=== PATIENT | male | born 1980 | race Caucasian/White ===

== ENCOUNTER 2018-03-05 13:59 | Emergency (ER) | payer OTHER, SELFPAY ==
[2018-03-05 14:03] VITALS: BP 161/106; PULSE 98; RESP 20; TEMP 36.4; O2SAT 96
[2018-03-05] MEDS: 0.9% Normal Saline 1,000 ML 999 ML IV ×2 (14:39)
[2018-03-05] MEDS: proMETHazine 25 MG/ML Syringe 6.25 MG IV (14:39)
[2018-03-05] MEDS: Ketorolac 30 MG/ML Syringe IV (15:23)
[2018-03-05] MEDS: Ondansetron 4 MG/2 ML Vial IV (15:28)
--- NOTE | 2018-03-05 15:35 | ED.VISSUMM ---
- ER Visit Summary Date of Service: 03/05/18 Chief Complaint: Nausea and vomiting History of Present Illness: The patient is a 37 M with nausea and vomiting that started today around 11 AM. He threw up 5 times and is now having dry heaves. He started to develop abdominal pain, back pain, myalgias, and headache. No weakness or numbness. No visual changes. No facial droop. No speech changes. No history of trauma. No blood thinner use. No fevers. Physical Examination: Afebrile and vital signs unremarkable. Head and neck atraumatic. Unremarkable. Good range of motion of his neck. Heart regular. Lungs clear. Abdomen soft and nontender. Normal bowel sounds. Skin appears normal. Cranial nerves grossly intact. Normal strength and sensation. Test Results: None performed Emergency Department Course and Treatment: Patient treated with fluids and Phenergan. He had some improvement but continued to complain of a headache. He was treated with Toradol and then Zofran. On further reevaluation, he is feeling better. I believe he is appropriate for discharge pending reevaluation after Toradol and Zofran. There is no indication for imaging or other diagnostic testing. Oncoming doctor will recheck. If he is doing better, he will be discharged with a course of Zofran. Treatment Plan: As above Disposition: Discharge pending reevaluation Impression: 1. Nausea and vomiting This note was generated with videoNEXT dictation software. It may contain incorrect words, spelling, and punctuation that were not noted in review of the chart prior to signing ED Disposition - Plan for ED Patient: Chief Complaint: Nausea/Vomiting/Diarrhea Referrals: Jean-Pierre Reyes DO [Primary Care Provider] -
--- NOTE | 2018-03-05 15:37 | ED.DEP ---
ED Disposition - Plan for ED Patient: Chief Complaint: Nausea/Vomiting/Diarrhea Instructions: ED Diet Vomiting Diarrhea Prescriptions: Ondansetron [Zofran Odt] 4 mg PO Q8H PRN PRN #10 tab PRN Reason: Nausea Referrals: Jean-Pierre Reyes DO [Primary Care Provider] -
--- OUTSIDE RECORDS SUMMARY | 2018-05-10 05:19 | XMS RPT_ITS ---
:1980 Author Organization [employer] Address [address] [place] [address] Phone Care Team Providers Name Role Phone Jeremy Lester Reason for Visit Reason For Visit Description Start Date Postop - subsequent visit Preliminary reason for visit data, not yet signed by the author as of right hip post Right hip scope with labral repair subchondroplasty microfracture chondroplasty acetabuloplasty femoroplasty synovectomy capsular repair. on 05/04/2017 Preliminary reason for visit data, not yet signed by the author as of Chief Complaint Chief Complaint Description Start Date right hip post Right hip scope with labral repair subchondroplasty microfracture chondroplasty acetabuloplasty femoroplasty synovectomy capsular repair. on 05/04/2017 Preliminary chief complaint data, not yet signed by the author as of Instructions Instruction Description Start Date Please follow-up with Primary Care Physician or Plaster Applicator for treatment or adjustment of medication regarding elevated blood pressure.Patient advised to follow-up with Primary Care Physician for BMI management. Plan of Care Type Date Detail Appointment 08:30 AM Warren Navarrete PT, [address], [place], [address], Appointment 09:20 AM Jeremy REYES, [address], [address], [place], [address], Appointment 09:00 AM Cari Gardiner PT, [address], [place], [address], Appointment 09:15 AM Nelly Surnear PT, [address], [place], [address], Appointment 10:00 AM Nelly Surnear PT, [address], [place], [address], Appointment 09:00 AM Cari Gardiner PT, [address], [place], [address], Appointment 10:00 AM Nelly Surnear PT, [address], [place], [address], Appointment 09:00 AM Cari Gardiner PT, [address], [place], [address], Appointment 10:00 AM Nelly Surnear PT, [address], [place], [address], Appointment 09:00 AM Cari Gardiner PT, [address], [place], [address], Patient education \cps-sql1\CPS_PtEducation\ht n.pdf Medications Medication Instructions Start Stop Generic Name [facility] Provider Date Date PERCOCET 5-325 Take 1 - 2 OXYCODONE-AC 90402532626 Champ R MG TABS tablets by mouth 3 ETAMINOPHEN Gabriela ZUÑIGA every 6 hours as needed for pain NAPROSYN 500 Take 1 tablet by NAPROXEN [id number] Jeremy A MG TABS mouth once a day 4 [facility] Conditions or Problems Problem Name Problem Onset Status Entry Provider Comment Standard Annotate Code Date Date Description Other M24.151 Active Jeremy A Other Labral articular (ICD-10-C / [facility] articular Tear cartilage M) cartilage disorders disorders, right hip right hip Other M25.851 Active Jeremy A Other COLT specified (ICD-10-C /30 /30 Prem PAC specified joint M) joint disorders disorders, right hip right hip Allergies, Adverse Reactions, Alerts Observed no known allergies at Social History No information available. Vital Signs Date Name Value Unit Description BMI (Body Mass 29.26 kg/m2 Body Mass Index Index) [Ratio] Preliminary vital sign data, not yet signed by the author as of BP Diastolic 109 mm[Hg] blood pressure, diastolic Preliminary vital sign data, not yet signed by the author as of BP Diastolic 102 mm[Hg] blood pressure, diastolic, second observation Preliminary vital sign data, not yet signed by the author as of BP Systolic 149 mm[Hg] blood pressure, systolic Preliminary vital sign data, not yet signed by the author as of BP Systolic 146 mm[Hg] blood pressure, systolic, second observation Preliminary vital sign data, not yet signed by the author as of Heart Rate 57 /min pulse rate E&M Preliminary vital sign data, not yet signed by the author as of Height 73 [in_us] height E&M Preliminary vital sign data, not yet signed by the author as of Height 185 cm height in centimeters E&M Preliminary vital sign data, not yet signed by the author as of Weight Measured 221 [lb_av] weight E&M Preliminary vital sign data, not yet signed by the author as of Weight Measured 100 kg weight in kilograms E&M Preliminary vital sign data, not yet signed by the author as of Results Date Name Value Unit Range Flag Description Office Visit: Postop - subsequent visit, Rm: 2 MEDS REVIEW Done Documentation of current medications (procedure) Preliminary observation data, not yet signed by the author as of Preliminary observation data, not yet signed by the author as of Clinical Summary: [facility] account number Clinical Summary: HMSPatientID PTOPACCTNUMB [id number] G[facility] Physical Therapy Outpatient Account Number Procedures Code Procedure Name Date Entry Date G8730 Pain assessment documented as positive - follow-up documented G8427 Current medications documented 1036F Tobacco screening was negative - non user G8417 BMI documented as above normal parameters - follow-up documented G8950 Blood pressure outside of normal parameters - follow-up documented [id number] Patient Encounter Medications Administered No information available. Immunizations No information available. Advance Directives There may be information available, but it has not been provided by the sender. Assessments There may be information available, but it has not been provided by the sender. Review of Systems There may be information available, but it has not been provided by the sender. Family History There may be information available, but it has not been provided by the sender. History of Past Illness There may be information available, but it has not been provided by the sender. History of Present Illness There may be information available, but it has not been provided by the sender.
--- OUTSIDE RECORDS SUMMARY | 2018-05-10 05:19 | XMS RPT_ITS ---
:1980 Author Organization [facility] Care Team Providers Name Role Phone ARON CONTRERAS Attending Unavailable Jean-Pierre Reyes Referring Unavailable Jean-Pierre Reyes Primary Care Unavailable Jean-Pierre Reyes Primary Care Unavailable Frank Fritz Attending Unavailable PROBLEMS PROBLEMS DATE TYPE CONDITION / ATTENDING STATUS SOURCE CODE 03/31/2017 Admitting Other articular Tawanna CONTRERAS [facility] Diagnosis cartilage ARON GREER System disorders, Repository right hip / M24.151(ICD-10) PROCEDURES PROCEDURES No Procedure Records FoundRESULTS RESULTS EMERGENCY DEPARTMENT Observed: 03/05/2018 Status: F Source: [place] SUMMARY 3:45 PM [facility] RE[facility]IT[facility] Medical Records Department [address] [place] [address] Emergency Department Summary 03/05/18 1535 MR#: [id number] Acct: [id number] Name: JEYSON SANCHEZ Rep #: [id number] : 1980 37 From: Frank Fritz MD PCP: Jean-Pierre Reyes DO Status: REG ER - ER Visit Summary Date of Service: 03/05/18 Chief Complaint: Nausea and vomiting History of Present Illness: The patient is a 37 M with nausea and vomiting that started today around 11 AM. He threw up 5 times and is now having dry heaves. He started to develop abdominal pain, back pain, myalgias, and headache. No weakness or numbness. No visual changes. No facial droop. No speech changes. No history of trauma. No blood thinner use. No fevers. Physical Examination: Afebrile and vital signs unremarkable. Head and neck atraumatic. Unremarkable. Good range of motion of his neck. Heart regular. Lungs clear. Abdomen soft and nontender. Normal bowel sounds. Skin appears normal. Cranial nerves grossly intact. Normal strength and sensation. Test Results: None performed Emergency Department Course and Treatment: Patient treated with fluids and Phenergan. He had some improvement but continued to complain of a headache. He was treated with Toradol and then Zofran. On further reevaluation, he is feeling better. I believe he is appropriate for discharge pending reevaluation after Toradol and Zofran. There is no indication for imaging or other diagnostic testing. Oncoming doctor will recheck. If he is doing better, he will be discharged with a course of Zofran. Treatment Plan: As above Disposition: Discharge pending reevaluation Impression: 1. Nausea and vomiting This note was generated with Stocard dictation software. It may contain incorrect words, spelling, and punctuation that were not noted in review of the chart prior to signing ED Disposition - Plan for ED Patient: Chief Complaint: Nausea/Vomiting/Diarrhea Referrals: Jean-Pierre Reyes, DO [Primary Care Provider] - What to do if you have Problems For any increased pain, shortness of breath, bleeding, nausea or vomiting, chest pain, or any unexpected problems, contact your Primary Care Provider. Call [facility] ([phone]) or report to the closest Emergency Room. Call 911 if necessary. 03/05/18 1546 <Electronically signed by Frank Fritz MD> Date Frank Fritz MD Cosigner Signature (If Indicated): Date CC: Jean-Pierre Reyes DO DISCHARGE INSTRUCTION Observed: 03/05/2018 Status: F Source: ANU 3:45 PM [facility] Medical Records Department [address] [place] [address] Discharge Instruction 03/05/18 1537 MR#: [id number] Acct: [id number] Name: JEYSON SANCHEZ Rep #: [id number] : 1980 37 From: Frank Fritz MD PCP: Jean-Pierre Reyes DO Status: REG ER ED Disposition - Plan for ED Patient: Chief Complaint: Nausea/Vomiting/Diarrhea Instructions: ED Diet Vomiting Diarrhea Prescriptions: Ondansetron [Zofran Odt] 4 mg PO Q8H PRN PRN #10 tab PRN Reason: Nausea Referrals: Jean-Pierre Reyes DO [Primary Care Provider] - What to do if you have Problems For any increased pain, shortness of breath, bleeding, nausea or vomiting, chest pain, or any unexpected problems, contact your Primary Care Provider. Call [facility] ([phone]) or report to the closest Emergency Room. Call 911 if necessary. 03/05/18 1545 <Electronically signed by Frank Fritz MD> Date Frank Fritz MD Cosigner Signature (If Indicated): Date CC: Jean-Pierre Reyes DO MRI LOW EXT JOINT W/ Observed: 03/31/2017 Status: F Source: [place] CONTRAST RIGHT 12:25 PM SYSTEM REPOSITORY Patient Name: JEYSON SANCHEZ MRI Exam Date/Time 03/31/2017 10:55:54 EST Exam MRI Low Ext Joint w/ Contrast Right Ordering Physician MD DIANE, ARON GREER Accession Number [id number] CPT4 Codes 25374 () Reason For Exam Pain Report Examination: MRI arthrogram right hip Clinical Indication: Hip pain concern for labral tear Comparison: None Findings: Multiplanar multisequence high field strength MRI images were obtained through the right hip after prior intra-articular contrast. Small iahdt-fn-ykwg axial, coronal, and sagittal along with high-resolution oblique coronal images were obtained for more sensitive and specific evaluation of the acetabular labrum. Patient describes post anesthesia pain relief right hip. There is a small cam seen along the femoral head neck junction slightly more pronounced superiorly. Right hip alpha angle measures 46 degrees. Lateral center edge angle measures 29 degrees. Acetabulum demonstrates neutral version. There is a sizable tear extending through the mid and peripheral anterior and into the anterior superior acetabular labrum extending to the 11:30 clock position. Tear measures 5 cm anterior to posterior with longitudinal articular sided component. The anterior labrum is slightly hypoplastic. There is partial detachment at the anterior superior junction. There is vsub-db-csubolay diffuse articular cartilage thinning. There is a focal full-thickness cartilage defect anterior acetabulum with developing subchondral cyst series 6 image seven. Cyst measures 0.8 cm. Cartilage defect measures up to 4 mm. There is some marginal chondromalacia. Ligamentum teres is intact. Iliopsoas tendon and bursa within normal limits. Adductor compartment musculature normal. There is trace gluteal tendinopathy without tear. No evidence of posterior hip impingement, normal ischiofemoral interval. Common hamstrings tendon origin is normal. Impression: 1. 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 2. Moderate articular cartilage thinning with full-thickness defect anterior superiorly, focal anterior acetabular subchondral cystic change and chondromalacia. 3. Small cam seen along the femoral head neck junction slightly more pronounced superiorly. Report Dictated on Final Dictated: 03/31/2017 12:25 pm Dictating Physician: MD GONZALES ANTHONY J Signed Date and Time: 03/31/2017 12:32 pm Signed by: MD GONZALES ANTHONY J Transcribed Date and Time: 03/31/2017 12:25 RF ARTHROGRAM ASPIR Observed: 03/31/2017 Status: F Source: [place] [facility] JT RIGHT 10:22 AM SYSTEM REPOSITORY Patient Name: JEYSON SANCHEZ Fluoroscopy Exam Date/Time 03/31/2017 10:01:39 EST Exam RF Arthrogram Aspir Inj Chandler Jt Right Ordering Physician SADIQ KOO RUSSELL Accession Number [id number] CTP4 Codes 86145 (), 63529 (RF FLUORO GUIDANCE NEEDLE PLACEMENT) Reason For Exam articular cartilage disorder right hip Report Examination: Fluoroscopic guided right hip arthrogram and diagnostic gadolinium injection Clinical Indication: Right hip pain, articular cartilage disorder Comparison: None Findings: Informed written consent was obtained from the patient after the risks, benefits, and alternatives to arthrography and therapeutic injection were adequately explained and all questions were answered. The right hip was prepared and draped in usual sterile fashion utilizing Betadine antisepsis. 1.5 percent preservative-free Carbocaine was used for local anesthesia. A 22-gauge spinal needle was then introduced into the right hip joint space utilizing fluoroscopy. Patient was then given injection of 16 mL of a mixture containing saline, 6 mL Isovue-300, 5 mL of Carbocaine and 1 to 200 dilute Multihance gadolinium contrast. Patient had no immediate postprocedural complications. Patient described postprocedural pain relief. Total fluoroscopic time 0.3 minutes. One stored fluoroscopic image. No additional exposure imaging. Impression: Status post right hip arthrogram and intra-articular gadolinium injection. Report Dictated on Final Dictated: 03/31/2017 10:22 am Dictating Physician: MD GONZALES ANTHONY J Signed Date and Time: 03/31/2017 10:23 am Signed by: MD GONZALES ANTHONY J Transcribed Date and Time: 03/31/2017 10:22 ALLERGIES ALLERGIES DATE TYPE / CODE NAME / CODE REACTION SEVERITY SOURCE 03/05/2018 Drug No Known Unknown [facility] Allergy/4160 Allergies/F00 [facility] 66404(SNOMED [id number](RXNOR Repository CT) M) ENCOUNTERS ENCOUNTERS ADMIT/DISCHARGE ACCOUNT NUMBER ADMITTING ENCOUNTER LOCATION SOURCE CLASS 03/05/2018/03/05/19 [id number] [place] [facility] ding:ED Repository 03/31/2017 [id number] Ambulatory [facility] Repository PAYERS PAYERS ENCOUNTER GUARANTOR PAYER SUBSCRIBER SOURCE 03/05/2018 JEYSON Tucker Primary JEYSON Tucker [place] [id number] Insurance:AETNADanniy CARLYB: [facility] Number: [id number] [address] [id number] Repository [address]Uql: ([phone]) Date:[id number] [phone] () [id number] [address]VZ: 03/05/2018 Secondary NOT GIVENUNK Anu Insurance:SELF PAY [facility] Number: Effective Repository Date:2018-03-05 03/31/2017 Jeyson Tucker Primary Jeyson [facility] RayobeyDOB: Insurance:Alie DuboseB: System [id number] N Number: Effective [id number] Repository [facility] Date: [place], [place] [address]Luh: ()
--- OUTSIDE RECORDS SUMMARY | 2018-05-10 05:19 | XMS RPT_ITS ---
:1980 Author Organization [employer] Address [address] [place] [address] Phone Care Team Providers Name Role Phone Jeremy Lester Unavailable Reason for Visit Reason For Visit Description [...] Please follow-up with Primary Care Physician or Residential Door Installer for treatment or adjustment of medication regarding elevated blood pressure.Patient advised to follow-up with Primary Care Physician for BMI management. Plan of Care Type Date Detail Appointment 08:20 AM Jeremy REYES, [address], [address], [place], [address], Appointment 08:00 AM Jeremy REYES, [address], [place], [address], Patient education \cps-sql1\CPS_PtEducation\h tn.pdf Medications Medication Instructions Start Stop Generic Name [facility] Provider Date Date PERCOCET 5-325 Take 1 - 2 OXYCODONE-AC 11010661264 Champ R MG TABS tablets by mouth 3 ETAMINJEFFERY Ochoa MD every 6 hours as needed for pain NAPROSYN 500 Take 1 tablet by NAPROXEN [id number] Jeremy A MG TABS mouth once a day 4 [facility] Conditions or Problems Problem Name Problem Onset Status Entry Provider Comment Standard Annotate Code Date Date Description Other M24.151 Active Jeremy A Other Labral articular (ICD-10-C [facility] articular Tear cartilage M) cartilage disorders disorders, right hip right hip Other M25.851 Active Jeremy A Other COLT specified (ICD-10-C [facility] specified joint M) joint disorders disorders, right hip right hip Allergies, Adverse Reactions, Alerts Observed no known allergies at Social History No information available. Vital Signs Date Name Value Unit Description BMI (Body Mass 29.26 kg/m2 Body Mass Index Index) [Ratio] Preliminary vital sign data, not yet signed by the author as of BP Diastolic 102 mm[Hg] blood pressure, diastolic Preliminary vital sign data, not yet signed by the author as of BP Diastolic 97 mm[Hg] blood pressure, diastolic, second observation Preliminary vital sign data, not yet signed by the author as of BP Systolic 149 mm[Hg] blood pressure, systolic Preliminary vital sign data, not yet signed by the author as of BP Systolic 135 mm[Hg] blood pressure, systolic, second observation Preliminary vital sign data, not yet signed by the author as of Heart Rate 63 /min pulse rate E&M Preliminary vital sign [...] Office Visit: Postop - subsequent visit, Rm: 1 MEDS REVIEW Done Documentation of current medications (procedure) Preliminary observation data, not yet signed by the author as of Preliminary observation data, not yet signed by the author as of Clinical Summary: [facility] account number Procedures Code Procedure Name Date Entry Date G8731 Pain assessment documented as negative - follow-up not required G8427 Current medications documented 1036F Tobacco screening was negative - non user G8417 BMI documented as above normal parameters - follow-up documented G8950 Blood pressure outside of normal parameters - follow-up documented [facility]-[id number] Patient Encounter Medications Administered No information available. [...]
--- OUTSIDE RECORDS SUMMARY | 2018-05-10 05:19 | XMS RPT_ITS ---
:1980 Author Organization [employer] Address [address] [place], [place] [address], [place] [address] Phone Care Team Providers Name Role Phone Gabriela ZUÑIGA, Champ Vivar Unavailable Reason for Visit Reason For Visit Description Start Date Postop - 1st visit Preliminary reason for visit data, not [...] as of Instructions Instruction Description Start Date Patient advised to follow-up with Primary Care Physician for BMI management. Plan of Care Type Date Detail Appointment 12:00 PM Champ Ochoa MD, [address], [address], [place], [address], Appointment 01:30 PM Mimi Henry PT, [address], [place], [address], Appointment 09:20 AM Jeremy REYES, [address], [address], [place], [address], Medications Medication Instructions Start Stop Generic Name NDC Provider Date Date PERCOCET 5-325 Take 1 - 2 OXYCODONE-JENNIFER 15170726077 Champ R MG TABS tablets by mouth 3 TAMINOPHEN Gabriela ZUÑIGA every 6 hours as needed for pain NAPROSYN 500 Take 1 tablet by NAPROXEN [id number] Jeremy A MG TABS mouth once a day 4 Prem [facility] GABAPENTIN 300 take 1 capsule GABAPENTIN [id number] Cece Doug MG CAPS four times daily 6 DOCUMENT CONTROL COORDINATOR Conditions or Problems Problem Name Problem Onset Status Entry Provider Comment Standard Annotate Code Date Date Description Other M24.151 Active Jeremy A Other Labral articular (ICD-10-C / [facility] articular Tear cartilage M) cartilage disorders disorders, right hip right hip Other M25.851 Active Jeremy A Other COLT specified (ICD-10-C / [facility] specified joint M) joint disorders disorders, right hip right hip Allergies, Adverse Reactions, Alerts Observed no known allergies at Social History No information available. Vital Signs Date Name Value Unit Description BMI (Body Mass 29.26 kg/m2 Body Mass Index Index) [Ratio] Preliminary vital sign data, not yet signed by the author as of BP Diastolic 82 mm[Hg] blood pressure, diastolic Preliminary vital sign data, not yet signed by the author as of BP Systolic 137 mm[Hg] blood pressure, systolic Preliminary vital sign data, not yet signed by the author as of Heart Rate 83 /min pulse rate E&M Preliminary vital sign [...] Range Flag Description Office Visit: Postop - 1st visit, Rm: 6 MEDS REVIEW Done Documentation of current medications (procedure) Preliminary observation data, not yet signed by the author as of Preliminary observation data, not yet signed by the author as of Clinical Summary: [facility]Patient[facility] account number Procedures Code Procedure Name Date Entry Date CPT-17517 Physical Therapy G8731 Pain assessment documented as negative - follow-up not required G8427 Current medications documented 1036F Tobacco screening was negative - non user G8417 BMI documented as above normal parameters - follow-up documented G8783 Blood pressure within normal parameters - no follow-up required [facility]-[id number] Patient Encounter Medications Administered No information available. [...]
== END 2018-03-05 15:57 | disposition home or self-care (01) ==
LOC: ED 15:12
PROVIDERS: Emergency Provider Emergency Medicine; Family Provider Family Medicine; PCP Family Medicine
DX: R11.2 Nausea with vomiting, unspecified (principal); R19.7 Diarrhea, unspecified; M54.9 Dorsalgia, unspecified; M79.10 Myalgia, unspecified site; R51 Headache; Z79.899 Other long term (current) drug therapy; Z86.711 Personal history of pulmonary embolism; Z87.09 Personal history of other diseases of the respiratory system
CPT/HCPCS: 96361; 96374; 96375; 99282; J7030; A4216; J2405

== ENCOUNTER 2019-02-20 08:42 | Emergency (ER) | payer OTHER, SELFPAY ==
[2019-02-20 08:44] VITALS: BP 148/94; PULSE 98; RESP 22; TEMP 37.4; O2SAT 96; BMI 28.0
--- NOTE | 2019-02-20 09:43 | ED.DCSUM_ITS ---
- ER Visit Summary Date of Service: 02/20/19 Chief Complaint: Nausea and vomiting History of Present Illness: The patient is a 38 M who presents with nausea and vomiting. He states started earlier this morning. He has vomited multiple times at home. He does have some mild abdominal cramping after the vomiting. Nothing makes his symptoms better or worse. He denies diarrhea. No urinary symptoms. He took nothing for this at home. He denies any history of abdominal surgeries. He denies any fevers or sick contacts. Physical Examination: Vital signs reviewed. HEENT exam unremarkable. Heart is regular rate and rhythm without murmurs. Lungs are clear to auscultation. Abdomen is soft with very mild diffuse tenderness. There is no guarding or rebound tenderness. Extremities reveal no edema. Skin exam normal. Neurologic exam normal. Test Results: White blood cell count 11.1. Electrolytes and liver enzymes normal Emergency Department Course and Treatment: Patient was given IV fluids and Zofran. He states that this helped him with his nausea. He still having some abdominal cramping so I will give him a dose of Bentyl. I feel that this is likely a gastroenteritis. I do not feel he needs any imaging studies at this time. I will treat him with Bentyl and Phenergan at home. He will follow-up with his doctor Treatment Plan: [] Disposition: Discharge Impression: Gastroenteritis This note was generated with [employer] dictation software. It may contain incorrect words, spelling, and punctuation that were not noted in review of the chart prior to signing ED Disposition - Plan for ED Patient: Referrals: Care Physician,No Primary [Primary Care Provider] -
[2019-02-20] MEDS: 0.9% Normal Saline 1,000 ML 1000 ML IV (09:50)
[2019-02-20] MEDS: Ondansetron 4 MG/2 ML Vial IV (09:50)
[2019-02-20 10:06] LABS: Absolute Lymphocyte Count 0.87 X10^3/uL (0.83-4.51); Absolute Neutrophil Count 9.3 X10^3/uL (2.0-7.7); Basophil# 0.06 X10^3/uL; Basophil% 0.5 % (0-1); Eosinophil# 0.07 X10^3/uL; Eosinophils% 0.6 % (0-5); Hematocrit 43.2 % (40-54); Lymphocyte # 0.87 X10^3/ul (4.0); Lymphocyte % 7.8 % (19-41); Mean Corp Hgb Conc 34.7 g/dL (32-36); Mean Corpuscular Hgb 28.7 pg (27.0-32.0); Mean Corpuscular Volume 82.8 fL (80-94); Monocyte# 0.82 X10^3/uL; Monocyte% 7.4 % (0-10); NRBC Flagged by Analyzer 0 % (0-5); Neutrophil # 9.25 X10^3/uL (2.7-7.7); Neutrophil % 83.4 % (47-70); Platelet Count 189 K/mm3 (150-450); RBC Distribution Width CV 13.2 % (11.6-14.6); RBC Distribution Width SD 39.4 fl (35.1-43.9); Red Blood Count 5.22 M/mm3 (4.6-6.2); White Blood Count 11.1 K/mm3 (4.4-11.0)
[2019-02-20 10:29] LABS: ALB/GLOB Ratio 1.1 RATIO (0.9-2.4); AST(SGOT) 25 U/L (15-37); Alanine Aminotransfer ALT/SGPT 48 U/L (16-61); Albumin, Serum 4.1 g/dL (3.2-5.0); Alkaline Phosphatase 106 U/L (45-117); Anion Gap 7 (5-15); BUN 10 mg/dL (7-18); BUN/Creat Ratio 9.4 RATIO (10-20); Calcium,Total 9.3 mg/dL (8.5-10.1); Chloride 107 mmol/L (98-107); Creatinine, Serum 1.06 mg/dL (0.70-1.30); EST Glomerular Filtration Rate 83 mL/min (>60); Est Glom Filt Rate - Afr Amer 101 mL/min (>60); Estimated Creatinine Clearance 117.14 ml/min; Globulin 3.7 g/dL (2.2-4.2); Glucose 106 mg/dL (74-106); Lipase 134 U/L (73-393); Potassium 3.7 mmol/L (3.5-5.1); Protein, Total 7.8 g/dL (6.4-8.2); Sodium Level 139 mmol/L (136-145)
--- NOTE | 2019-02-20 10:35 | ED.DEP ---
ED Disposition - Plan for ED Patient: Disposition: Home or Assisted Living Instructions: DIET, Vomiting or Diarrhea [6yr-Adult] Prescriptions: Dicyclomine HCl [Bentyl] 20 mg PO TIDAC #20 cap Prescription Printed proMETHazine tablet [Phenergan] 25 mg PO Q6H PRN PRN #10 tab PRN Reason: Nausea Prescription Printed Referrals: Care Physician,No Primary [Primary Care Provider] -
[2019-02-20] MEDS: Dicyclomine 20 MG/2 ML Vial IM (10:46)
[2019-02-20 10:59] VITALS: BP 114/76; PULSE 72; RESP 15; O2SAT 98
== END 2019-02-20 11:27 | disposition home or self-care (01) ==
PROVIDERS: Emergency Provider Emergency Medicine
DX: K52.9 Noninfective gastroenteritis and colitis, unspecified (principal); Z79.899 Other long term (current) drug therapy
CPT/HCPCS: 80053; 83690; 85025; 96361; 96372; 96374; 99283; J7030; J2405

== ENCOUNTER 2020-01-25 18:34 | Observation (INO) | payer OTHER, SELFPAY ==
[2020-01-25] VITALS (7 sets, daily range): BP systolic 127–158; BP diastolic 95–109; PULSE 80–102; RESP 15–25; TEMP 36.4; O2SAT 88–98; BMI 32.8
--- NOTE | 2020-01-25 19:11 | EKG12_ITS ---
Test Reason : SOB Blood Pressure : / mmHG Vent. Rate : 101 BPM Atrial Rate : 101 BPM P-R Int : 150 ms QRS Dur : 086 ms QT Int : 324 ms P-R-T Axes : 025 -05 018 degrees QTc Int : 420 ms Sinus tachycardia Possible Left atrial enlargement Borderline ECG Confirmed by ALICE ZUÑIGA, RAY ([id number]), design editor LIZ CANTU ([id number]) on 01/27/2020 2:06:52 PM Referred By: Pranav Nuñez Confirmed By:RAY JENKINS MD
--- NOTE | 2020-01-25 19:17 | ED.DCSUM_ITS ---
History of Present Illness Chief Complaint: Shortness of Breath Informant: Patient Narrative: 39-year-old male presenting for evaluation of chest pain and shortness of breath. Patient apparently had taken Ambien prior to going to bed, and after this his sister called. He thought he was talking a little weird so she went to check on him. When she arrived he was still acting a little abnormal so she called EMS. On EMS arrival patient started to have a panic attack which she has had in the past. He states he feels a little bit better now but he is never had chest pain like this with his panic attack. He describes it as pressure on the chest wall. He states he has not had a cough, cold, fever, chills. He denies cardiac history. Past Medical History - Allergies and Home Meds Allergies/Adverse Reactions: Allergies No Known Allergies Allergy (Verified 01/25/20 18:45) Prior records reviewed: Yes Past Medical History: - - Pulmonary embolism, anxiety Surgical History: noncontributory Lives: Alone Smoking Status: Never smoker - Family History Maternal Family History: Reports: No pertinent history - No family history of first- degree hypercoagulable disorder Paternal Family History: Reports: - - Denies any medical history. Review of Systems General: Denies: Chills, Fever, Sweats Eyes: Denies: Visual changes - bilaterally, Diplopia ENT: Denies: Rhinorrhea, Sore throat Cardiovascular: Reports: Chest pain, Heart racing Respiratory: Reports: Dyspnea. Denies: Cough, Sputum Gastrointestinal: Denies: Abdominal pain, Nausea, Vomiting, Diarrhea, Melena, Hematochezia Genitourinary: Denies: Dysuria, Hematuria, Frequency Musculoskeletal: Denies: Back pain, Extremity Pain Skin: Denies: Rash, Wounds Neurological: Denies: Weakness, Numbness Psych: Reports: Anxiety. Denies: Suicidal thoughts, Suicidal ideations Physical Exam Vital Signs/Narrative: Vital Signs Temp Pulse Resp BP Pulse Ox 01/25/20 18:50 86 19 H 149/108 H 97 01/25/20 18:36 97.6 F L 102 H 15 158/108 H 98 Inital Vital Signs reviewed: Yes General: Well nourished, No Acute Distress Head: Normocephalic, Atraumatic Eyes: Perrl, EOMI ENT: Moist mucous membranes, No rhinorrhea Cardiovascular: Regular rhythm, Tachycardia Respiratory: No distress, CTA bilaterally. Negative for: Chest tenderness Abdomen: Soft, Nontender, Nondistended Extremities: Negative for: Nontender, No edema Skin: Negative for: Normal color, No rash Neurological: Alert, Oriented x3, Cranial nerves II-XII grossly intact Psychological: Normal Mood, - - Anxious Diagnostic/Tx/Re-eval Clinical Impression(s) from Imaging Studies Chest X-Ray 01/25/20 20:07 IMPRESSION: No acute cardiopulmonary process identified. Electronically Signed: Kenneth Verdin, at 20:26 EST Tel , Service support , Laboratory Data 01/25/20 01/25/20 01/25/20 19:30 19:30 19:30 WBC 6.6 RBC 5.55 Hgb 15.7 Hct 46.5 MCV 83.8 MCH 28.3 MCHC 33.8 RDW Std Deviation 38.5 RDW Coeff of Francoise 12.6 Plt Count 234 MPV 11.8 Immature Gran % (Auto) 0.300 Neut % (Auto) 84.7 H Lymph % (Auto) 11.8 L [place] % (Auto) 3.0 Eos % (Auto) 0.0 Baso % (Auto) 0.2 Absolute Neuts (auto) 5.6 Absolute Lymphs (auto) 0.78 L Nucleated RBC % 0 D-Dimer Quant (PE/DVT) < 0.27 L Sodium 140 Potassium 4.1 Chloride 106 Carbon Dioxide 28.0 Anion Gap 6 BUN 11 Creatinine 0.98 Estim Creat Clear Calc 105.53 Est GFR (MDRD) Af Amer 110 Est GFR (MDRD) Non-Af 91 BUN/Creatinine Ratio 11.2 Glucose 121 H Calcium 9.8 Troponin I < 0.015 COVID-19 (LEX) 01/25/20 22:20 WBC RBC Hgb Hct MCV MCH MCHC RDW Std Deviation RDW Coeff of Francoise Plt Count MPV Immature Gran % (Auto) Neut % (Auto) Lymph % (Auto) [place] % (Auto) Eos % (Auto) Baso % (Auto) Absolute Neuts (auto) Absolute Lymphs (auto) Nucleated RBC % D-Dimer Quant (PE/DVT) Sodium Potassium Chloride Carbon Dioxide Anion Gap BUN Creatinine Estim Creat Clear Calc Est GFR (MDRD) Af Amer Est GFR (MDRD) Non-Af BUN/Creatinine Ratio Glucose Calcium Troponin I COVID-19 (LEX) Not Detected - Medical Decision Making 39-year-old male presenting with 2 days of symptoms of shortness of breath and chest pain. On arrival he was tachycardic and short of breath was able to be calmed down. His vitals did appear to be stabilized. EKG is sinus rhythm in 101 bpm without signs of ischemic change. Troponin is negative. D-dimer is negative. Patient is lymphopenic and leukopenic. He was monitored on pulse ox for over 10 minutes to be hypoxic. His lowest sat was 88%. He was placed on 2 L of oxygen and he appears to be stable with this. Patient was tested for Covid with rapid antigen and this was negative. He was then tested with a PCR which was negative. Given the patient's hypoxia he will be needed minute for observation. Impression: 1. Chest pain 2. Hypoxia 3. Shortness of breath ED Disposition - Plan for ED Patient: Disposition: Acute Care Hospital [facility]
[2020-01-25] MEDS: 0.9% Normal Saline 1,000 ML 1000 ML IV (19:31)
[2020-01-25] MEDS: Aspirin 81 MG TAB.CHEW 324 MG PO (19:31)
[2020-01-25 19:52] LABS: Absolute Lymphocyte Count 0.78 X10^3/uL (0.83-4.51); Absolute Neutrophil Count 5.6 X10^3/uL (2.0-7.7); Basophil# 0.01 X10^3/uL; Basophil% 0.2 % (0-1); Hematocrit 46.5 % (40-54); Hemoglobin 15.7 g/dL (13.0-16.5); Lymphocyte # 0.78 X10^3/ul (4.0); Lymphocyte % 11.8 % (19-41); Mean Corp Hgb Conc 33.8 g/dL (32-36); Mean Corpuscular Hgb 28.3 pg (27.0-32.0); Mean Corpuscular Volume 83.8 fL (80-94); Mean Platelet Vol. 11.8 fl (6.2-12.0); NRBC Flagged by Analyzer 0 % (0-5); Neutrophil # 5.59 X10^3/uL (2.7-7.7); Neutrophil % 84.7 % (47-70); Platelet Count 234 K/mm3 (150-450); RBC Distribution Width CV 12.6 % (11.6-14.6); RBC Distribution Width SD 38.5 fl (35.1-43.9); Red Blood Count 5.55 M/mm3 (4.6-6.2); White Blood Count 6.6 K/mm3 (4.4-11.0)
[2020-01-25 20:00] LABS: D-Dimer Quantitative (DVT/PE) < 0.27 FEU/ug/m (0.27-0.49)
--- NOTE | 2020-01-25 20:07 | RAD_ITS ---
STUDY: X-RAY CHEST REASON FOR EXAM: Male, 39 years old. PT HAD 3 STEROID SHOTS TODAY FOR HIS BACK. PT CALLED [facility] FEELING SOB AND VERY ANXIOUS. PT WAS HYPERVENTILATING. TECHNIQUE: Single frontal view of the chest. COMPARISON: 12/12/2016. FINDINGS: Cardiac silhouette unremarkable. Pulmonary vascularity unremarkable. Aorta unremarkable. No focal airspace opacities. No pleural effusions. Upper abdomen unremarkable. Osseous structures intact. No pneumothorax. RAD/Chest 1 View (Portable) IMPRESSION: No acute cardiopulmonary process identified. Electronically Signed: Kenneth Verdin, at 20:26 EST Tel , Service support ,
[2020-01-25 20:08] LABS: Anion Gap 6 (5-15); BUN 11 mg/dL (7-18); BUN/Creat Ratio 11.2 RATIO (10-20); Calcium,Total 9.8 mg/dL (8.5-10.1); Chloride 106 mmol/L (98-107); Creatinine, Serum 0.98 mg/dL (0.70-1.30); EST Glomerular Filtration Rate 91 mL/min (>60); Est Glom Filt Rate - Afr Amer 110 mL/min (>60); Estimated Creatinine Clearance 105.53 ml/min; Glucose 121 mg/dL (74-106); Potassium 4.1 mmol/L (3.5-5.1); Sodium Level 140 mmol/L (136-145)
[2020-01-25 23:26] LABS: Probe Check PASS; Specimen Processing Control PASS
[2020-01-26] VITALS (7 sets, daily range): BP systolic 137–158; BP diastolic 82–111; PULSE 56–75; RESP 15–18; TEMP 36.5–37; O2SAT 95–97; BMI 30.9
--- NOTE | 2020-01-26 00:18 | PCM.HP.STD ---
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 Reportedly patient took his night time Ambien for sleep and became confused thereafter. Patient's confusion was witnessed by his sister who is a refrigeration service technician. Subsequently, paramedics were called and patient was brought to the emergency department. Per ED doc, while patient was at the ED, patient's oxygen saturation at room air and for a period of about 10 minutes was around 88%. Patient denies sob prior to arrival but developed SOB at the ED. Patient reports a dry cough. He denies fever. His coronavirus antigen and PCR at the ED was negative. Past Medical History Medical History: Medical History (Last Updated 01/26/20 @ 04:[address] Pranav Nuñez MD) Chronic pain G89.29 Allergies No Known Allergies Allergy (Verified 01/25/20 18:45) Home Medications: Ambulatory Orders Medication Instructions Recorded Gabapentin [Neurontin] 600 mg PO BID 12/12/16 Tizanidine HCl [Zanaflex] 4 mg PO Q8H PRN PRN 01/25/20 Zolpidem Tartrate [Ambien] 10 mg PO QHS 01/25/20 traMADol [Ultram (G)] 50 mg PO Q6H PRN PRN 01/25/20 Surgical History: no surgical history Lives: Alone Smoking Status: Never smoker - *Family History Maternal History Items: - - His mother had a foot injury and had her leg amputated. Denies any other medical history otherwise. Paternal History Items: - - Denies any paternal medical history. Review of Systems Constitutional: Denies: Chills, Fever, Weight Change HEENT: Denies: Head Aches, Sinus Congestion, Sinus Drainage Cardiovascular: Denies: Chest Pain, Palpitations Respiratory: Reports: Cough, Shortness of Breath. Denies: Sputum production Gastrointestinal: Denies: Abdominal Pain, Nausea, Vomiting Genitourinary: Denies: Dysuria Musculoskeletal: Denies: Joint Pain, Joint Tenderness Skin: Denies: Rash, Wounds Neurological: Reports: Confusion. Denies: Focal weakness, Numbness, Tingling Psychiatric: Denies: Anxiety, Depression, Homicidal Ideations, Suicidal Ideations Hematologic/ Lymphatic: Denies: Easy Bruising, Easy Bleeding VTE Information - Inpt Only VTE Present on Admission: No VTE Mechan Device Prophylaxis: SCD's VTE Pharm Prophylaxis ordered?: No - Physical Exam Vitals/I&O's: Vital Signs Temp Pulse Resp BP Pulse Ox 97.6 F L 99 15 150/95 H 96 01/25/20 18:36 01/25/20 20:36 01/25/20 20:36 01/25/20 20:36 01/25/20 20:36 Oxygen Flow Rate (L/min) 2 Oxygen Delivery Method Nasal Cannula Weight: 103.9 kg Body Mass Index (BMI) 32.8 Intake and Output for Last 24 Hours 01/24/20 01/25/20 01/26/20 23:59 23:59 23:59 Intake Total 1000 / 1000 Balance 1000 / 1000 General: Alert, Oriented x3, Cooperative HEENT: Atraumatic, PERRLA, EOMI, Normocephalic Neck: Supple, No JVD, Negative Carotid Bruits Lungs: Clear to auscultation, Normal air movement Cardiovascular: Regular rate, Normal S1, Normal S2, No murmurs Abdomen: Bowel Sounds Present, Soft, Non Tender Extremities: No edema, Capillary Refill Less than 3 Seconds Skin: No rashes, No breakdown Musculoskeletal: No Tenderness to Palpation of Joints or Extremities Neurological: Cranial nerves II-XII grossly intact Psych/Mental Status: Normal Affect, Appropriate Microbiology Past 72 Hours 01/25/20 20:00 Mucosa - Nose SARS-CoV-2 Antigen (Rapid) - Final Laboratory Results 01/25/20 19:30: WBC 6.6, RBC 5.55, Hgb 15.7, Hct 46.5, MCV 83.8, MCH 28.3, MCHC 33.8, RDW Std Deviation 38.5, RDW Coeff of Francoise 12.6, Plt Count 234, MPV 11.8, Immature Gran % (Auto) 0.300, Neut % (Auto) 84.7 H, Lymph % (Auto) 11.8 L, [place] % (Auto) 3.0, Eos % (Auto) 0.0, Baso % (Auto) 0.2, Absolute Neuts (auto) 5.6, Absolute Lymphs (auto) 0.78 L, Nucleated RBC % 0 01/25/20 19:30: D-Dimer Quant (PE/DVT) < 0.27 L 01/25/20 19:30: Sodium 140, Potassium 4.1, Chloride 106, Carbon Dioxide 28.0, Anion Gap 6, BUN 11, Creatinine 0.98, Estim Creat Clear Calc 105.53, Est GFR (MDRD) Af Amer 110, Est GFR (MDRD) Non-Af 91, BUN/Creatinine Ratio 11.2, Glucose 121 H, Calcium 9.8, Troponin I < 0.015 01/25/20 22:20: COVID-19 (LEX) Not Detected Current Medications Acetaminophen (Acetaminophen 325 Mg Tablet) 650 mg PO Q6H PRN PRN PRN Reason: pain 1-10/Fever of >=100.4F Assessment/Plan Acute encephalopathy Etiology unclear. Check TSH and vitamin B-12. BMP is unremarkable. Check CMP. Review of ED triage notes: Patient had 3 steroid shots today for his back. Patient called squad feeling short of breath and very anxious. Patient was hyperventilating. History taken from patient's was not consistent with triage notes. From review of triage notes patient might have had steroid psychosis. Acute hypoxemic respiratory insufficiency. Hold all sedating medication. Oxygen per protocol. Nighttime oximetry ordered. Coronavirus antigen and PCR was negative. 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 Respiratory pathogen panel and influenza returned negative. Indeed his symptoms does not appear to be a viral syndrome. Deferential diagnoses includes panic attack. As per emergent department doctor's notes patient started to have a panic attack when paramedics arrived and he has had same in the past. Chronic pain Hold home gabapentin. Patient is on home Zanaflex which reportedly he does not take as he gets drowsy with it. Patient was requesting a pain med for his back. However with his acute encephalopathy on the same day of presentation patient was advised that all sedative medications will be held at this time. Tylenol as needed and K pad ordered. DVT prophylaxis Low risk Encouraged to ambulate. OBSV E&M: 04924 Initial observation care L2
[2020-01-26] MEDS: Acetaminophen 325 MG Tablet 650 MG PO (01:51)
[2020-01-26 05:51] LABS: Absolute Lymphocyte Count 1.84 X10^3/uL (0.83-4.51); Absolute Neutrophil Count 7.8 X10^3/uL (2.0-7.7); Basophil# 0.02 X10^3/uL; Basophil% 0.2 % (0-1); Eosinophil# 0.01 X10^3/uL; Eosinophils% 0.1 % (0-5); Hematocrit 41.3 % (40-54); Hemoglobin 13.9 g/dL (13.0-16.5); Lymphocyte # 1.84 X10^3/ul (4.0); Lymphocyte % 17.3 % (19-41); Mean Corp Hgb Conc 33.7 g/dL (32-36); Mean Corpuscular Hgb 28.5 pg (27.0-32.0); Mean Corpuscular Volume 84.6 fL (80-94); Mean Platelet Vol. 11.8 fl (6.2-12.0); Monocyte# 0.96 X10^3/uL; NRBC Flagged by Analyzer 0 % (0-5); Neutrophil # 7.78 X10^3/uL (2.7-7.7); Platelet Count 204 K/mm3 (150-450); RBC Distribution Width CV 12.8 % (11.6-14.6); RBC Distribution Width SD 39.6 fl (35.1-43.9); Red Blood Count 4.88 M/mm3 (4.6-6.2); White Blood Count 10.7 K/mm3 (4.4-11.0)
[2020-01-26 06:25] LABS: ALB/GLOB Ratio 1.1 RATIO (0.9-2.4); AST(SGOT) 11 U/L (15-37); Alanine Aminotransfer ALT/SGPT 18 U/L (16-61); Albumin, Serum 3.8 g/dL (3.2-5.0); Alkaline Phosphatase 89 U/L (45-117); Anion Gap 4 (5-15); BUN 10 mg/dL (7-18); BUN/Creat Ratio 13.1 RATIO (10-20); Chloride 107 mmol/L (98-107); Creatinine, Serum 0.76 mg/dL (0.70-1.30); EST Glomerular Filtration Rate 121 mL/min (>60); Est Glom Filt Rate - Afr Amer 147 mL/min (>60); Estimated Creatinine Clearance 136.07 ml/min; Globulin 3.4 g/dL (2.2-4.2); Glucose 109 mg/dL (74-106); Potassium 3.6 mmol/L (3.5-5.1); Protein, Total 7.2 g/dL (6.4-8.2); Sodium Level 138 mmol/L (136-145); Thyroid Stim Hormone (TSH) 0.35 uIU/mL (0.358-3.74)
--- NOTE | 2020-01-26 07:42 | NURSING ---
Pandemic Documentation beginning at 01/26/2020 0104
[2020-01-26 08:26] LABS: Vitamin B12 381 pg/mL (211-911)
--- NOTE | 2020-01-26 09:34 | DS.PCM_ITS ---
Discharge Date and Diagnosis Date of Admission: 01/26/20 Date of Discharge: 01/26/20 - Primary Discharge Diagnosis Acute Problems: Acute hypoxic respiratory insufficiency Toxic encephalopathy Hospital Course and Treatment Operations: None Summary of Care Provided: The patient is a 39 year old M presents with confusion. Yesterday, patient received a Depo shot of steroids. Patient took Ambien around 4 PM. He took that because he works nights. Which he states he does do that periodically. Was noted to be confused but pulse ox was around 88%. Today, the patient is feeling better and was up and ambulated and his pulse ox remained in the mid 90s. He has no shortness of breath and otherwise feels well. I feel that the confusion was likely toxic encephalopathy related with the steroid shots, w hether or not anything else was in the shot other than steroids I am not aware of, and the Ambien. I told patient to take the Ambien very sparingly and warned him of a hangover effect that can occur after nights or days sleep. [] - Physical Exam Vitals/I&O's: Vital Signs Temp Pulse Resp BP Pulse Ox 36.6 C 69 18 139/82 H 95 01/26/20 05:51 01/26/20 05:51 01/26/20 05:51 01/26/20 05:51 01/26/20 05:51 Oxygen Flow Rate (L/min) 2 Oxygen Delivery Method Nasal Cannula Weight: 98 kg Body Mass Index (BMI) 30.9 Intake and Output for Last 24 Hours 01/24/20 01/25/20 01/26/20 23:59 23:59 23:59 Intake Total 1000 / 1000 300 / 300 Balance 1000 / 1000 300 / 300 General: Alert, No apparent distress HEENT: Atraumatic, Normocephalic Oral: Moist Mucosa, No Gingival or Mucosal Lesions/ Ulcerations Psych/Mental Status: Normal Affect, Appropriate Microbiology Past 72 Hours 01/25/20 22:00 Mucosa - Nasopharyngeal Respiratory Panel (PCR) - Final 01/26/20 00:00 Mucosa - Nasopharyngeal Influenza Types A,B Direct FA (MAIRA) - Final 01/25/20 20:00 Mucosa - Nose SARS-CoV-2 Antigen (Rapid) - Final Laboratory Results 01/25/20 19:30: WBC 6.6, RBC 5.55, Hgb 15.7, Hct 46.5, MCV 83.8, MCH 28.3, MCHC 33.8, RDW Std Deviation 38.5, RDW Coeff of Francoise 12.6, Plt Count 234, MPV 11.8, Immature Gran % (Auto) 0.300, Neut % (Auto) 84.7 H, Lymph % (Auto) 11.8 L, [place] % (Auto) 3.0, Eos % (Auto) 0.0, Baso % (Auto) 0.2, Absolute Neuts (auto) 5.6, Absolute Lymphs (auto) 0.78 L, Nucleated RBC % 0 01/25/20 19:30: D-Dimer Quant (PE/DVT) < 0.27 L 01/25/20 19:30: Sodium 140, Potassium 4.1, Chloride 106, Carbon Dioxide 28.0, Anion Gap 6, BUN 11, Creatinine 0.98, Estim Creat Clear Calc 105.53, Est GFR (MDRD) Af Amer 110, Est GFR (MDRD) Non-Af 91, BUN/Creatinine Ratio 11.2, Glucose 121 H, Calcium 9.8, Troponin I < 0.015 01/25/20 22:20: COVID-19 (LEX) Not Detected 01/26/20 05:28: Sodium 138, Potassium 3.6, Chloride 107, Carbon Dioxide 27.0, Anion Gap 4 L, BUN 10, Creatinine 0.76, Estim Creat Clear Calc 136.07, Est GFR (MDRD) Af Amer 147, Est GFR (MDRD) Non-Af 121, BUN/Creatinine Ratio 13.1, Glucose 109 H, Calcium 9.0, Total Bilirubin 0.40, AST 11 L, ALT 18, Alkaline Phosphatase 89, Total Protein 7.2, Albumin 3.8, Globulin 3.4, Albumin/Globulin Ratio 1.1, TSH 0.35 L 01/26/20 05:28: Vitamin B12 381 01/26/20 05:28: WBC 10.7, RBC 4.88, Hgb 13.9, Hct 41.3, MCV 84.6, MCH 28.5, MCHC 33.7, RDW Std Deviation 39.6, RDW Coeff of Francoise 12.8, Plt Count 204, MPV 11.8, Immature Gran % (Auto) 0.400, Neut % (Auto) 73.0 H, Lymph % (Auto) 17.3 L, [place] % (Auto) 9.0, Eos % (Auto) 0.1, Baso % (Auto) 0.2, Absolute Neuts (auto) 7.8 H, Absolute Lymphs (auto) 1.84, Nucleated RBC % 0 Current Medications Acetaminophen (Acetaminophen 325 Mg Tablet) 650 mg PO Q6H PRN PRN PRN Reason: Pain Score 1-10/Temp > 100.7 F Last Admin: 01/26/20 01:51 Dose: 650 mg Documented by: Sodium Chloride () 250 mls @ 15 mls/hr IV .[id number] PRN PRN Reason: Saline Flush Sodium Chloride () 250 mls @ 15 mls/hr IV .[id number] PRN PRN Reason: Additional IVPB Infusion Ondansetron HCl (Ondansetron 4 Mg/2 Ml Vial) 4 mg IV Q8H PRN PRN PRN Reason: NAUSEA/VOMITING Sodium Chloride (0.9% Saline Lock 10 Ml Syringe) 10 - 40 ml IV UD PRN PRN Reason: SALINE FLUSH Discharge Diet: No Restrictions Home Medications: Medications to take at Discharge Gabapentin [Neurontin] 600 mg PO BID 12/12/16 Zolpidem Tartrate [Ambien] 10 mg PO QHS PRN #0 01/26/20 traMADol [Ultram] 50 mg PO Q6H PRN PRN #0 01/26/20 Primary Care Physician: Care Physician,No Primary [NON-STAFF] - Disposition: Home Minutes spent on discharge:: 28 Patient Condition:: Fair Medical Necessity - Tobacco Use Smoking Status: Never smoker Meaningful Use Info Meaningful Use Diagnoses (Choose all that apply): None applicable OBSV E&M: 66993 Observation care discharge
--- NOTE | 2020-01-26 09:34 | DCINST_ITS ---
You will use the following diet at home:: No restrictions Allergies/Adverse Reactions: Allergies No Known Allergies Allergy (Verified 01/25/20 18:45) Medications to take at Discharge Gabapentin [Neurontin] 600 mg PO BID 12/12/16 Zolpidem Tartrate [Ambien] 10 mg PO QHS PRN #0 01/26/20 traMADol [Ultram] 50 mg PO Q6H PRN PRN #0 01/26/20 Primary Care Physician: Care Physician,No Primary [NON-STAFF] - Test Results: Test results from this visit will be discussed in further detail at your follow- up appointment, if applicable. Proposed Discharge Date: 01/26/20
== END 2020-01-26 10:43 | disposition home or self-care (01) ==
LOC: ED 19:45 → MS3 01-26 00:18
PROVIDERS: Admitting Provider Hospitalist; Emergency Provider Student in an Organized Health Care Education/Training Program; PCP Preventive Medicine Occupational Medicine; Referring Provider Hospitalist
DX: R09.02 Hypoxemia (principal); R06.89 Other abnormalities of breathing; Z86.711 Personal history of pulmonary embolism; R07.9 Chest pain, unspecified; F41.9 Anxiety disorder, unspecified; G92 Toxic encephalopathy; G89.29 Other chronic pain; Z79.899 Other long term (current) drug therapy
CPT/HCPCS: 71045; 80048; 80053; 82607; 84443; 84484; 85025; 85379; 87426; 87633; 87635; 87804; 93005; 94762; 96360; 96361; 99218; 99285; J7030; G0378; U0002

== ENCOUNTER → 2020-06-01 08:45 | Outpatient (CLI) | payer OTHER, SELFPAY ==
[2020-01-26 01:04] VITALS: BMI 30.9
--- NOTE | 2020-06-01 08:56 | RAD_ITS ---
CLINICAL HISTORY: Male, 39 years old. Right hip pain and weakness. PROCEDURE: ARTHROGRAM - RIGHT CONSENT: The procedure as well as the benefits and possible complications including infection and bleeding were explained to the patient. Informed consent was obtained. FLUOROSCOPY TIME (if supplied): (72 seconds) minutes/seconds Injection Information: 10 cc of dilute MRI contrast. Number of images obtained: 1 TECHNIQUE: (All elements of maximal sterile barrier technique followed, including US elements as applicable) The patient was in the supine position. The overlying skin was prepped and draped in the usual sterile fashion. Following local anesthetic application and under direct fluoroscopic guidance, a 22-gauge spinal needle was placed into the hip joint. 2 cc of ISOVUE-300 was injected for confirmation. Following this, 10 cc of dilute MRI contrast was injected. RAD/Arthrogram Hip w/ MRI IMPRESSION: Right hip arthrogram for MRI imaging. Electronically Signed: Anthony Moy MD at 10:18 EDT , Service support ,
--- NOTE | 2020-06-01 10:00 | MRI_ITS ---
STUDY: MRI RIGHT HIP ARTHROGRAM REASON FOR EXAM: 39-year-old male. Hip pain. TECHNIQUE: Standardized fat and water weighted pulse sequences were obtained in all 3 orthogonal planes. Please see dedicated arthrogram technique. 0.8 mL dilute gadolinium agent intra-articularly injected. CATHLEEN positioning obtained. COMPARISON: X-ray dated 12/13/2015. FINDINGS: Adequate contrast distention secondary to intra-articular contrast administration. Miniscule superior anterior labral tear (coronal image 13 series 4 and sagittal image 18 series 8). Remainder of the labrum intact. Capsule intact. Normal hip joint without articular joint space narrowing. Normal acetabulum. Normal femoral head. Normal femoral neck and intratrochanteric region. Alpha angle measures approximately 50 degrees. Normal gluteus minimus, medius and iliopsoas tendons and distal insertions. No trochanteric, iliopsoas or iliopectineal bursitis. Normal superior and inferior pubic rami. Normal pubic symphysis. Normal ischial tuberosity. Normal origin of the hamstring tendons. Normal visualized iliac wing, sacroiliac joint, and sacral ala. Normal visualized soft tissue structures of the pelvis. MRI/Lower Ext/Jt Only/W Contrast IMPRESSION: Miniscule superior anterior labral tear Right hip articular cartilage preserved Electronically Signed: Ryan Gracia DO at 11:43 EDT Tel , Service support ,
== END ==
PROVIDERS: PCP Preventive Medicine Occupational Medicine; Referring Provider Specialist; Visit Provider Specialist
DX: M25.551 Pain in right hip (principal); R53.1 Weakness
CPT/HCPCS: 27093; 73722; 77002; A9575; Q9967

== ENCOUNTER 2020-07-25 05:20 | Day surgery (SDC) | payer OTHER, SELFPAY ==
[2020-01-26 01:04] VITALS: BMI 30.9
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
--- NOTE | 2020-07-18 08:23 | EKG12_ITS ---
Test Reason : PREOP Blood Pressure : / mmHG Vent. Rate : 058 BPM Atrial Rate : 058 BPM P-R Int : 154 ms QRS Dur : 082 ms QT Int : 396 ms P-R-T Axes : 048 007 048 degrees QTc Int : 388 ms Sinus bradycardia Otherwise normal ECG Confirmed by JUDIT ZUÑIGA, DANIELA ([id number]), proposal editor LIZ CANTU ([id number]) on 07/19/2020 12:39:49 PM Referred By: Gilbert Carballo Confirmed By:DANIELA SPAIN MD
[2020-07-18 09:39] LABS: Absolute Lymphocyte Count 2.56 X10^3/uL (0.83-4.51); Absolute Neutrophil Count 2.2 X10^3/uL (2.0-7.7); Basophil# 0.06 X10^3/uL; Eosinophil# 0.22 X10^3/uL; Eosinophils% 3.8 % (0-5); Hematocrit 43.8 % (40-54); Hemoglobin 14.4 g/dL (13.0-16.5); Lymphocyte # 2.56 X10^3/ul (0.83-4.51); Lymphocyte % 44.3 % (19-41); Mean Corp Hgb Conc 32.9 g/dL (32-36); Mean Corpuscular Hgb 28.2 pg (27.0-32.0); Mean Corpuscular Volume 85.9 fL (80-94); Mean Platelet Vol. 11.3 fl (6.2-12.0); Monocyte# 0.71 X10^3/uL; Monocyte% 12.3 % (0-10); NRBC Flagged by Analyzer 0 % (0-5); Neutrophil # 2.21 X10^3/uL (2.7-7.7); Neutrophil % 38.3 % (47-70); Platelet Count 212 K/mm3 (150-450); RBC Distribution Width CV 13.6 % (11.6-14.6); White Blood Count 5.8 K/mm3 (4.4-11.0)
[2020-07-18 09:56] LABS: Magnesium 2.2 mg/dL (1.6-2.6)
[2020-07-18 10:14] LABS: Anion Gap 6 (5-15); BUN 18 mg/dL (7-18); BUN/Creat Ratio 21.1 RATIO (10-20); Calcium,Total 9.2 mg/dL (8.5-10.1); Chloride 104 mmol/L (98-107); Creatinine, Serum 0.85 mg/dL (0.70-1.30); EST Glomerular Filtration Rate 106 mL/min (>60); Est Glom Filt Rate - Afr Amer 129 mL/min (>60); Glucose 82 mg/dL (74-106); Potassium 3.9 mmol/L (3.5-5.1); Sodium Level 137 mmol/L (136-145)
[2020-07-25] VITALS (17 sets, daily range): BP systolic 87–158; BP diastolic 52–102; PULSE 57–96; RESP 14–18; TEMP 36.2–36.8; O2SAT 94–100; BMI 29.0
[2020-07-25] MEDS: Lactated Ringers 1,000 ML 999 ML IV ×2 (05:50→08:30)
[2020-07-25] MEDS: Scopolamine 1mg/72hr Patch 1 PATCH TD ×2 (06:05→07:00)
[2020-07-25] MEDS: Celecoxib 200 MG Capsule 400 MG PO (06:20)
[2020-07-25] MEDS: Acetaminophen 500 MG Tablet 1000 MG PO (06:20)
[2020-07-25] MEDS: Gabapentin 600 MG Tablet PO (06:36)
--- NOTE | 2020-07-25 07:02 | OP.PCM_ITS ---
Report of Operation Date of Procedure: 07/25/20 Pre-Operative Diagnosis: Right hip secondary osteoarthritis, COLT Post-Operative Diagnosis: Right hip secondary osteoarthritis, COLT Surgery/Procedure Performed:: Right minimally invasive direct anterior conversion previous hip surgery to total hip replacement Description of Surgical Findings:: Stable hip with equal leg length Surgeon: Gilbert Carballo conventional machinist: Janice Ochoa Type of Anesthesia: Spinal Special Medications: 2 g Ancef, 1 g TXA at incision, 1 g TXA closure, 10 mg Decadron, joint cocktail (5 mg Duramorph, 30 mL of 0.5% Ropivicaine, 1000 units of epinephrine, 30 mg of Toradol) Specimen's removed: Bony cuts Estimated Blood Loss (mL): 300 Fluids Replaced: 1500 mL crystalloid Description of Procedure: Components used: 1. Accolade 2 [place] femoral stem size 5 127? 2. [place] trident 2 acetabular shell size 54 mm 3. [place] X3 polyethylene E 4. [place] Biolox delta 36 mm, -5 mm femoral head Brief history operative indications: 39yo male who failed conservative measures for their hip osteoarthritis. X-rays were consistent with osteoarthritis including joint space narrowing, osteophyte formation and subchondral cysts. Total hip replacement was discussed with the patient with risks and benefits including but not limited to blood loss, DVTs, PEs, neurovascular damage, dislocation, general risks of anesthesia including loss of life. Patient demonstrated an understanding medical clearance is obtained the patient was consented for surgery. Procedure: On the date of procedure the patient's right hip was marked in the preoperative area. Patient was then taken back to the operating room where anesthesia assumed control of the C-spine and airway and administered anesthetic. Patient was transferred to the operating table and placed in the supine position. The hips were placed at the break of the bed and a sacral bump was placed. The right lower extremity was then prepped out in a sterile fashion using chlorhexidine while the surgeon scrubbed. The PA was vital in the positioning of the patient. Upon reentering the room the right lower extremity was draped in the standard orthopedic fashion and the incision was marked. A timeout was called and everyone agreed upon the side, the site, the procedure be performed, antibody given, and patient's identity. At this time incision was made through skin, subcutaneous tissue, and fat down to fascia. The fascia was then incised and the TFL was retracted laterally. A retractor was placed on the lateral border of the femoral neck. Attention was directed to the inferior portion of the approach and all crossing vessels were identified and appropriately coagulated. A retractor was then placed on the medial portion of the femoral neck. The anterior capsule was then cleared of all soft tissue and then H shaped capsulotomy was made. The retractors were then placed inside the capsule. The femoral neck was identified and a cleanup cut was made. At this time a power corkscrew was used to remove the femoral head. Attention was then turned toward the acetabulum where the soft tissues were appropriately retracted and the acetabulum was sequentially reamed to 54 mm. A 54 mm cup was then selected and impacted into place. Acetabular liner was impacted into place and locking mechanism was verified. The position of the acetabular cup was then verified under live fluoroscopy. Attention was then turned to the femur. Soft tissue releases on the medial and lateral femoral neck were appropriately done, the leg was externally rotated and lateralized. A Olsen retractor was placed medially and proximally to the greater trochanter this allowed appropriate visualization and exposure of the femoral canal. Rongeour was then used to remove excess lateral bone. A canal finder and entry broach were used to open the proximal canal. Once we verified we were down the femoral canal we subsequently broached up to a size 5 femur. The appropriate neck was placed in the previously selected head was trialed with a -5 mm neck. Traction was pulled and the hip was reduced with internal rotation. Once it was appropriately reduced and stability was checked. There was minimal shuck, equal leg lengths and appropriate stability with hyperextension and external rotation as well as with 90? flexion and internal rotation. Fluoroscopy was then also used to verify the position of the components and leg lengths using the contralateral side for comparison. The trial components were then dislocated the proximal femur was again exposed and the components were removed from the wound. The final components were verified and opened. The wound was copiously irrigated out with normal saline. The acetabulum was checked for any residual debris. The final components were placed and impacted. Traction and internal rotation were again used to reduce the hip. After adequate reduction the hip remained stable with appropriate leg lengths. The final components were once again checked with live fluoroscopy and were found to be satisfactory. The wound was then copiously irrigated with normal saline once more, and hemostasis was obtained. Closure was then done using #1 Vicryl runner to close the fascia. A 2-0 vicryl interuppted sutures were used to close the subcutaneous skin. A 3-0 Monocryl and Steri-Strips were used for final skin closure. A Silverlon dressing was placed. Patient was awakened by anesthesia and transferred to the [facility]. Patient was then transferred to the PACU for recovery. Postoperative plan: Patient will get 24 hours postop antibiotics. Patient will get in-house physical therapy and will be weight-bear as tolerated. Patient will follow up in office in 2 weeks for a wound check and x-rays. Aspirin 81 mg twice daily. Complications No intraoperative complications Admit VTE Documentation VTE Present on Admission: No VTE Mechan Device Prophylaxis: SCD's and Thigh High GRECIA Hose VTE Pharm Prophylaxis ordered?: Yes
[2020-07-25] MEDS: Lactated Ringers 1,000 ML 75 ML IV (07:15)
[2020-07-25] MEDS: Cefazolin 2 GM in 0.9% Normal Saline 100 ML IV (07:36)
[2020-07-25] MEDS: dexAMETHasone 10 MG/ML Vial IV (07:56)
--- NOTE | 2020-07-25 08:00 | RAD_ITS ---
STUDY: X-RAY - PELVIS AND RIGHT HIP REASON FOR EXAM: Right hip arthroplasty, right hip pain. TECHNIQUE: 4 intraoperative images of the pelvis and hip. COMPARISON: Radiographs 12/13/2015. FINDINGS: There is a right hip arthroplasty without evidence of complication. 4.4 seconds of fluoroscopy time was used. Electronically Signed: Aroldo Rosario MD at 11:12 EDT Tel , Service support , RAD/Hip 1 view with Pelvis
--- NOTE | 2020-07-25 08:00 | HIP_PTH ---
PATIENT: EPHRAIM SANCHEZ LOC: [facility] – [place] U#:[id number] AGE/SX: 39/M ROOM: RE07/25/[address]: Dr. Gilbert Carballo MD : 1980 BED: DIS: 07/25/2020 SPEC #: [id number] RECD: 07/25/20 11:42 STATUS: ANT RENATA #: [id number] RAJANI: 07/25/20 08:[address]: Gilbert Carballo DEPT: SURGICAL PATHOLOGY RECD BY: Ava Morrissey ENTERED: 07/25/20 12:04 SP TYPE: TOTAL HIP OTHR DR: DO Sy Giordano PA-C Tissues: Hip, NOS Procedures: Decalcification bone/plaque Surgery Specimen Level IV HEADER OPERATION: ERAS, anterior total hip arthroplasty PRE-OP DIAGNOSIS: Right hip secondary osteoarthritis TISSUE SUBMITTED: Right hip bone and soft tissue MICROSCOPIC DIAGNOSIS Bone and soft tissue of right hip, total hip resection: Focal degenerative changes. AM:brian 08/02/2020 MICROSCOPIC DESCRIPTION Slides are reviewed. GROSS DESCRIPTION Received is one container labeled with the patient's name and designated right hip bone and tissue.? The specimen consists of a dykes femoral head measuring 5 x 5 x 4.5 cm. The articular surface displays prominent osteophyte formation and focal eburnation. Also present in the specimen container are multiple irregular fragments of bone reamings and pink-yellow soft tissue measuring in aggregate 10 x 10 x 2 cm. Building Construction Supervisor sections are submitted in two cassettes as follows: 1 - soft tissue, 2 - bone after decalcification. / AM:brian 07/25/20 TC:5 [facility]: [id number], [id number]
[2020-07-25 08:46] LABS: Bedside Glucose 105 mg/dL (70-110)
--- NOTE | 2020-07-25 09:55 | RAD_ITS ---
STUDY: X-RAY - PELVIS AND RIGHT HIP REASON FOR EXAM: Status post right hip arthroplasty. TECHNIQUE: 2 views of the pelvis and hip. COMPARISON: Radiographs 12/13/2015. FINDINGS: There is postoperative gas in the soft tissues. Normal bilateral superior and inferior pubic rami. Normal pubic symphysis. Normal bilateral ischial tuberosities. There is a right hip arthroplasty without evidence of complication. RAD/Hip Min 2 Views (Portable) IMPRESSION: Uncomplicated right hip arthroplasty. Electronically Signed: Aroldo Rosario MD at 12:17 EDT Tel , Service support ,
[2020-07-25] MEDS: Lactated Ringers 1,000 ML 125 ML IV (10:45)
[2020-07-25 11:56] LABS: Bedside Glucose 138 mg/dL (70-110)
[2020-07-25] MEDS: Cefazolin 1 GM/50 ML BAG IV (12:45)
--- NOTE | 2020-07-25 12:56 | SUR.PHASEII ---
Physical therapy contacted at 1230, spoke with Eileen, to come perform physical therapy evaluation. Eileen stated she will be down as soon as she can. Patient updated on plan of care and awaiting physical therapy. Patient does not have any needs at this time.
[2020-07-25] MEDS: oxyCODONE 5 MG Tablet PO (13:52)
== END 2020-07-25 14:45 ==
LOC: SDC 05:21 → AC 05:21
PROVIDERS: Anesthesiology; PCP Preventive Medicine Occupational Medicine; Referring Provider Specialist; Visit Provider Specialist
PROC: (CPT 27284; principal; 2020-07-25 07:35)
DX: M16.11 Unilateral primary osteoarthritis, right hip (principal); Z20.822 Contact with and (suspected) exposure to COVID-19; G89.29 Other chronic pain; F41.9 Anxiety disorder, unspecified; Z79.899 Other long term (current) drug therapy; Z92.241 Personal history of systemic steroid therapy
CPT/HCPCS: 01214; 27132; 36415; 73501; 73502; 76000; 80048; 82962; 83735; 85025; 87077; 87081; 87426; 88305; 88311; 93005; 97161; C1776; C9803; J7120; J2405

== ENCOUNTER 2020-07-26 23:36 | Emergency (ER) | payer OTHER, SELFPAY ==
[2020-07-25 06:00] VITALS: BMI 29.0
[2020-07-26 23:37] VITALS: BP 129/78; PULSE 86; RESP 16; TEMP 37.1; O2SAT 97; BMI 30.9
--- NOTE | 2020-07-26 23:39 | RAD_ITS ---
STUDY: X-RAY - PELVIS AND RIGHT HIP REASON FOR EXAM: Male, 39 years old. right hip pain TECHNIQUE: 2 views of the pelvis and hip. COMPARISON: None. FINDINGS: Right hip arthroplasty without acute findings. Left hip degenerative changes RAD/Hip Min 2 Views (Portable) IMPRESSION: No acute findings Electronically Signed: Conner Mendoza DO at 0:37 EDT Tel , Service support ,
--- NOTE | 2020-07-26 23:41 | ED.VIS.LOWEX ---
HPI History of Present Illness Chief Complaint: Lower Extremity Injury Informant: patient Narrative Narrative: Patient presents with right hip pain. Yesterday he had a total hip replacement performed at this facility by Dr. Carballo. He went home yesterday after the surgery. He states that he started vomiting around 5 PM this evening and has not kept any of his antiemetics or pain medications down. Pain is worse with movement. He denies any falls. He denies any dislocations. He has not had a fever. He has been wearing his GRECIA hose and has been taking aspirin twice a day. [facility] Medical History Anxiety Arthritis Chronic pain History of steroid therapy Migraine headache Non-smoker Wears dentures Wears glasses Home Medications gabapentin 600 mg PO BID 12/12/16 [History Last Taken 07/24/20 21:00] acetaminophen [Tylenol Ex Str Arthritis Pain] 500 mg PO Q6H PRN 07/12/20 [History Last Taken Unknown] trazodone 50 mg PO QHS PRN 07/12/20 [History Last Taken Unknown] ondansetron 8 mg PO Q8H PRN PRN #20 tab 07/27/20 [Rx Last Taken Unknown] Allergy/AdvReac Type Severity Reaction Status Date / Time No Known Allergies Allergy Verified 07/26/20 23:40 Surgical History Hx laparoscopic cholecystectomy Hx of tonsillectomy S/P hip arthroscopy Social History Smoking Status: Never smoker ROS ROS ED Constitutional Constitutional ED: Denies chills or fever(s) Eyes Eyes: Denies blurry vision, change in vision or diplopia ENT ENT ED: Denies ear pain, rhinorrhea or sore throat Cardiovascular Cardiovascular: Denies chest pain or palpitations Respiratory/Chest Respiratory/Chest: Denies cough, dyspnea or sputum Gastrointestinal Gastrointestinal: Reports nausea and vomiting Genitourinary Genitourinary ED: Denies dysuria, hematuria or urinary frequency Musculoskeletal Musculoskeletal: Reports other Details: Right hip pain Integumentary Denies change in pigmentation or rash Neurologic Neurologic: Denies headache(s), numbness or weakness Psychiatric Psychiatric: Denies anxiety or depression Endocrine Endocrinology: Denies polydipsia or polyuria EXAM Physical Exam Const Vital Signs: 07/26/20 23:37 Temperature 98.7 F Temperature Source Oral Pulse Rate 86 Respiratory Rate 16 Blood Pressure 129/78 H Blood Pressure Mean 95 Pulse Ox 97 Oxygen Delivery Method Room Air Positive well nourished and well developed General Appearance ED: well developed HEENT normocephalic and atraumatic Eyes PERRL Neck full ROM Resp normal respiratory effort and clear to auscultation bilaterally Cardio regular rate and regular rhythm GI non-tender and non-distended Palpation: soft Extremity Extremity Narrative: The patient has no swelling to the right leg. The bandage on the right hip incision is clean dry and intact. He has limited range of motion secondary to pain. DP pulses are equal and 2+. Neuro oriented x3 Sensorium / Orientation: alert Motor Exam: strength 5/5 throughout Psych mental status grossly normal Skin Lesions: no lesions Rashes: no rashes MDM MDM MDM Narrative Medical decision making narrative: The patient had laboratory studies which show a hemoglobin of 11.8. His creatinine is normal. He was given morphine and IV fluids as well as Zofran. He was still having some pain so I gave him fentanyl. X-rays do not reveal anything acute. I did discuss with Dr. Madrid, on-call for Dr. Carballo. He agrees with discharged home to take home medications and follow-up with Dr. Carballo. I will give him Zofran to help with his nausea at home. Lab Data Labs: Laboratory Results - last 24 hr 07/26/20 07/26/20 23:53 23:53 WBC 10.1 RBC 4.10 L Hgb 11.8 L Hct 35.2 L MCV 85.9 MCH 28.8 MCHC 33.5 RDW Std Deviation 41.8 RDW Coeff of Francoise 13.4 Plt Count 191 MPV 11.5 Immature Gran % (Auto) 0.500 Neut % (Auto) 76.1 H Lymph % (Auto) 11.2 L Guthrie % (Auto) 11.3 H Eos % (Auto) 0.4 Baso % (Auto) 0.5 Absolute Neuts (auto) 7.7 Absolute Lymphs (auto) 1.13 Nucleated RBC % 0 Sodium 139 Potassium 3.6 Chloride 107 Carbon Dioxide 25.0 Anion Gap 7 BUN 11 Creatinine 0.92 Estim Creat Clear Calc 123.03 Est GFR (MDRD) Af Amer 118 Est GFR (MDRD) Non-Af 97 BUN/Creatinine Ratio 11.9 Glucose 99 Calcium 8.8 Radiography Diagnostic Testing: Radiology Impression Hip X-Ray 07/26/20 23:39 IMPRESSION: No acute findings Electronically Signed: Conner Mendoza DO at 0:37 EDT Tel , Service support , Discharge Plan Triage Chief Complaint: Lower Extremity Injury ED Provider: Rakan Marie Dx/Rx/DC Orders Clinical Impression: Acute postoperative pain of right hip Instructions: After Hip Replacement: Managing Your Pain Prescriptions: New ondansetron [ondansetron] 4 MG tablet 8 mg PO Q8H PRN PRN (Reason: Nausea) Qty: 20 RF: 0 No Action gabapentin 300 MG capsule 600 mg PO BID RF: 0 trazodone 50 mg Tablet 50 mg PO QHS PRN (Reason: Sleep) RF: 0 acetaminophen [Tylenol Ex Str Arthritis Pain] 500 mg Tablet 500 mg PO Q6H PRN (Reason: Pain) RF: 0 Primary Care Provider: Geo Gutiérrez Referrals: Geo Gutiérrez DO [Primary Care Provider] - Disposition Disposition: Home, self care
[2020-07-26] MEDS: Ondansetron 4 MG/2 ML Vial IV (23:52)
[2020-07-26] MEDS: 0.9% Normal Saline 1,000 ML 1000 ML IV (23:52)
[2020-07-26] MEDS: Morphine 4 MG/ML Syringe IV (23:53)
[2020-07-27 00:05] LABS: Absolute Lymphocyte Count 1.13 X10^3/uL (0.83-4.51); Absolute Neutrophil Count 7.7 X10^3/uL (2.0-7.7); Basophil# 0.05 X10^3/uL; Basophil% 0.5 % (0-1); Eosinophil# 0.04 X10^3/uL; Eosinophils% 0.4 % (0-5); Hematocrit 35.2 % (40-54); Hemoglobin 11.8 g/dL (13.0-16.5); Lymphocyte # 1.13 X10^3/ul (0.83-4.51); Lymphocyte % 11.2 % (19-41); Mean Corp Hgb Conc 33.5 g/dL (32-36); Mean Corpuscular Hgb 28.8 pg (27.0-32.0); Mean Corpuscular Volume 85.9 fL (80-94); Mean Platelet Vol. 11.5 fl (6.2-12.0); Monocyte# 1.14 X10^3/uL; Monocyte% 11.3 % (0-10); NRBC Flagged by Analyzer 0 % (0-5); Neutrophil # 7.67 X10^3/uL (2.7-7.7); Neutrophil % 76.1 % (47-70); Platelet Count 191 K/mm3 (150-450); RBC Distribution Width CV 13.4 % (11.6-14.6); RBC Distribution Width SD 41.8 fl (35.1-43.9); White Blood Count 10.1 K/mm3 (4.4-11.0)
[2020-07-27 00:20] LABS: Anion Gap 7 (5-15); BUN 11 mg/dL (7-18); BUN/Creat Ratio 11.9 RATIO (10-20); Calcium,Total 8.8 mg/dL (8.5-10.1); Chloride 107 mmol/L (98-107); Creatinine, Serum 0.92 mg/dL (0.70-1.30); EST Glomerular Filtration Rate 97 mL/min (>60); Est Glom Filt Rate - Afr Amer 118 mL/min (>60); Estimated Creatinine Clearance 123.03 ml/min; Glucose 99 mg/dL (74-106); Potassium 3.6 mmol/L (3.5-5.1); Sodium Level 139 mmol/L (136-145)
[2020-07-27] MEDS: fentaNYL 100 MCG/2 ML Ampul 50 MCG IV (00:52)
[2020-07-27 01:43] VITALS: BP 126/79; PULSE 80; RESP 14; O2SAT 92
== END 2020-07-27 01:51 | disposition home or self-care (01) ==
PROVIDERS: Emergency Provider Emergency Medicine; PCP Preventive Medicine Occupational Medicine
DX: G89.18 Other acute postprocedural pain (principal); M25.551 Pain in right hip; G89.29 Other chronic pain; R11.2 Nausea with vomiting, unspecified; F41.9 Anxiety disorder, unspecified; M19.90 Unspecified osteoarthritis, unspecified site; Z79.899 Other long term (current) drug therapy
CPT/HCPCS: 73502; 80048; 85025; 96361; 96374; 96375; 99285; J7030; J2405

== ENCOUNTER 2024-03-21 11:00 | Emergency (ER) | payer OTHER, SELFPAY ==
[2024-03-21 11:01] VITALS: BP 192/118; PULSE 86; RESP 15; TEMP 36.6; O2SAT 97; BMI 29.2
[2024-03-21] MEDS: Morphine 4 MG/ML Syringe IV (11:24)
[2024-03-21] MEDS: Ondansetron 4 MG/2 ML Vial IV (11:24)
[2024-03-21] MEDS: 0.9% Normal Saline (1000mL) 1,000 ML 999 ML IV (11:24)
[2024-03-21] MEDS: Ketorolac 15 MG/ML Vial IV (11:24)
--- NOTE | 2024-03-21 11:28 | EX.ED.DYSGE1 ---
HPI <CHETAN العراقي - Last Filed: 03/21/24 12:28> History of Present Illness Chief Complaint: Flank Pain Narrative Narrative: Patient is a 43-year-old male with no significant medical history presents to the emergency department with 3 days of right sided flank pain. Patient states he was doing a leg press at a gym, he felt some pop in his right lower chest. Over the last couple days, the patient has had worsening pain. Today he states that the pain was almost unbearable, and he decided to come to the emergency department. He also notes that he is having urinary frequency. Denies any fever or chills, denies any specific nausea or vomiting. PFSH <CHETAN العراقي - Last Filed: 03/21/24 12:28> PFSH Medical History Anxiety Arthritis Chronic pain History of steroid therapy Migraine headache Non-smoker Wears dentures Wears glasses Home Medications ?Medication ?Instructions ?Recorded ?Last Taken ?Type gabapentin 300 mg capsule 600 mg PO BID NERVE PAIN 12/12/16 07/24/20 21:00 History acetaminophen 500 mg tablet 500 mg PO Q6H PRN Pain 07/12/20 Unknown History trazodone 50 mg tablet 50 mg PO QHS PRN Sleep 07/12/20 Unknown History ondansetron 4 mg disintegrating 8 mg (2 x 4 mg) PO Q8H PRN PRN 07/27/20 Unknown Rx tablet Nausea #20 tabs hydrocodone-acetaminophen 5-325mg 1 tab PO Q4H PRN PRN Pain 3 days 03/21/24 Unknown Rx 5mg-325mg #10 TABLETS Allergy/AdvReac Type Severity Reaction Status Date / Time No Known Allergies Allergy Verified 03/21/24 11:07 Surgical History Hx laparoscopic cholecystectomy Hx of tonsillectomy S/P hip arthroscopy Social History Smoking Status: Never smoker ROS <CHETAN العراقي - Last Filed: 03/21/24 12:28> ROS ED ROS Narrative Constitutional: Negative for fever, chills, weight loss, weakness Eyes: Negative for vision loss, vision change, double vision ENT: Negative for any sore throat, ear pain, congestion Cardiovascular: Negative for any chest pain, tightness, palpitations Respiratory: Negative for any cough, sputum production, hemoptysis, dyspnea, dyspnea on exertion, orthopnea Gastrointestinal: Negative for any abdominal pain, nausea, vomiting, diarrhea, constipation, blood in stool, blood in vomit : Negative for any urinary frequency, dysuria, retention, blood in urine Muscle skeletal: Negative for any neck pain, back pain. Positive for right-sided flank pain, right abdominal pain Neurological: Negative for any headache, syncope, dizziness Skin: Negative for any rashes, itching, abrasions, lacerations Psychiatric: Negative for any depression, anxiety, stress, suicidal ideation, homicidal ideation Hematologic: Negative for any excessive bruising, easy bleeding EXAM <Gerard Delacruz NP-C - Last Filed: 03/21/24 12:28> Physical Exam Narrative Exam Narrative: Vital signs reviewed. On my initial evaluation, patient does look to be in discomfort. Patient slightly sweaty, patient is hypertensive. HEET: Head normocephalic atraumatic, TMs clear bilaterally. Posterior pharynx is clear, moist mucous membranes. Nares clear bilaterally. Neck: Supple with no lymphadenopathy or tenderness. No signs of meningismus. Cardiac: Regular rate and rhythm no murmurs gallops or rubs, equal peripheral pulses bilaterally. Respiratory: Lungs clear to auscultation bilaterally. No chest tenderness. Abdomen: Soft,nondistended. No abdominal bruit or pulsatile masses. No hepatosplenomegaly. Patient's tenderness is just under the right ribs however also into the flank area. There is no CVA tenderness. Extremities: No peripheral edema, no signs of gross trauma or deformity. Active full range of motion of all extremities. Neuro: Cranial nerves II through XII intact, no focal neurological deficits. Skin: Clean dry and intact with no rash, purpura, petechiae, vesicles or pustules. Backs/flank: No CVA tenderness, no midline spinal tenderness, no deformity. Psych: Normal mood and affect. No SI, HI or acute psychosis. Const Vital Signs: 03/21/24 11:01 Temperature 97.8 F Temperature Source Oral Pulse Rate 86 Respiratory Rate 15 Blood Pressure 192/118 H Blood Pressure Mean 142 Pulse Ox 97 Oxygen Delivery Method Room Air Positive well nourished and well developed General Appearance ED: well developed <Dr. Alcides Goodrich MD - Last Filed: 03/21/24 12:28> Physical Exam Const Vital Signs: 03/21/24 11:01 Temperature 97.8 F Temperature Source Oral Pulse Rate 86 Respiratory Rate 15 Blood Pressure 192/118 H Blood Pressure Mean 142 Pulse Ox 97 Oxygen Delivery Method Room Air MDM <CHETAN العراقي - Last Filed: 03/21/24 12:28> [facility] Lab Data Labs: Laboratory Results - last 24 hr 03/21/24 11:30 WBC 6.6 RBC 5.55 Hgb 15.9 Hct 46.9 MCV 84.5 MCH 28.6 MCHC 33.9 RDW Std Deviation 40.8 RDW Coeff of Francoise 13.2 Plt Count 230 MPV 11.3 Immature Gran % (Auto) 0.200 Neut % (Auto) 48.0 Lymph % (Auto) 38.9 Sampson % (Auto) 9.7 Eos % (Auto) 2.3 Baso % (Auto) 0.9 Absolute Neuts (auto) 3.2 Absolute Lymphs (auto) 2.57 Nucleated RBC % 0 Sodium 139 Potassium 4.0 Chloride 106 Carbon Dioxide 27.0 Anion Gap 6 BUN 12 Creatinine 0.83 Estim Creat Clear Calc 144.67 Est GFR (MDRD) Af Amer 130 Est GFR (MDRD) Non-Af 107 BUN/Creatinine Ratio 14.4 Glucose 99 Calcium 9.6 Total Bilirubin 0.90 AST 14 L ALT 33 Alkaline Phosphatase 107 Total Protein 8.2 Albumin 4.4 Globulin 3.8 Albumin/Globulin Ratio 1.2 Lipase 54 Radiography Diagnostic Testing: Clinical Impression(s) from Imaging Studies Abdomen/Pelvis CT 03/21/24 11:30 IMPRESSION: 1. Hepatomegaly with fatty infiltration. 2. No obstructive uropathy. 3. Umbilical hernia containing fat. Reading Location: [facility] Treatment and Re-Evaluation :: Differential diagnosis includes however is not limited to: Kidney stone, renal colic, acute cholecystitis, viral gastroenteritis, anterior chest wall strain, UTI, infected kidney stone Patient does appear to be in slight distress secondary to pain. Most the patient's pain is to the right flank, right upper abdomen that has been ongoing and getting worse for last 3 to 4 days. I am concerned for a kidney stone with the way he describes the pain. Patient will receive a CT scan of the abdomen pelvis without contrast, basic laboratory values will be drawn, CBC CMP lipase as well as a urinalysis. All radiologic examinations were read, reviewed by the emergency department attending. From these reads, a plan of care will be put in place. Patient will be given IV fluids, IV Zofran, IV morphine and Toradol. Patient will be reevaluated. Patient's laboratory values showed normal CBC, patient's chemistries were unremarkable, lipase was negative. CT scan of the abdomen pelvis showed no acute process. Reevaluation the patient was feeling improved. Patient still had the pain just under the right rib. At this time, there is no evidence suspect any acute cholecystitis, no infection, no obstructing uropathy, pyelonephritis. Patient be treated for right rib strain, chest wall pain. Patient will be given a short course of pain medicine, instructed to perform ice, gentle stretching. All questions answered, stable for discharge. <Dr. Alcides Goodrich MD - Last Filed: 03/21/24 12:28> [facility] Narrative Medical decision making narrative: I have personally performed a face to face assessment of the patient and have reviewed the CARIE Note. I performed a substantive portion of the visit including all aspects of the following. My culp findings include: History is 43-year-old male right upper quadrant and right rib cage pain after lifting he had a thought he felt a pop in his lower rib cage. No history of kidney stone. States he is having urinary frequency. No blood no fever. Exam is [well-appearing 43-year-old male. Vital signs stable afebrile. He does look like he is having some discomfort. H EENT exam unremarked. Neck nontender. Lungs clear to auscultation bilaterally. Heart regular rhythm rate about 85 no murmur. He does have reproducible chest wall pain along his right lower and lateral rib cage. No bruising. No rash. No subcu air. No crepitance. Abdomen is soft nontender, nondistended normal bowel sounds without peritoneal signs. No specific right upper or right lower quadrant tenderness. Back nontender except along the right lower lateral rib cage. Again no rash ecchymosis or bruising. Moving all 4 extremities. Nontender no edema. Normal strength and range of motion. Neurologically is awake and alert no focal motor deficits.] Medical Decision Making [possible rib cage injury versus kidney stone versus other. CT and labs are unremarkable. Urine is clean. He was treated with pain meds. He will be discharged home with pain medication on repeat exam around 1220 he still has reproducible rib cage pain which would go along with his history this occurred while he was lifting.] Other additions or changes: [None] History & Record Review Discussion w/independent historian: Patient and Family Lab Data Lab results narrative: CBC normal. CMP normal. Pulse ox Labs: Laboratory Results - last 24 hr 03/21/24 11:30 WBC 6.6 RBC 5.55 Hgb 15.9 Hct 46.9 MCV 84.5 MCH 28.6 MCHC 33.9 RDW Std Deviation 40.8 RDW Coeff of Francoise 13.2 Plt Count 230 MPV 11.3 Immature Gran % (Auto) 0.200 Neut % (Auto) 48.0 Lymph % (Auto) 38.9 Sampson % (Auto) 9.7 Eos % (Auto) 2.3 Baso % (Auto) 0.9 Absolute Neuts (auto) 3.2 Absolute Lymphs (auto) 2.57 Nucleated RBC % 0 Sodium 139 Potassium 4.0 Chloride 106 Carbon Dioxide 27.0 Anion Gap 6 BUN 12 Creatinine 0.83 Estim Creat Clear Calc 144.67 Est GFR (MDRD) Af Amer 130 Est GFR (MDRD) Non-Af 107 BUN/Creatinine Ratio 14.4 Glucose 99 Calcium 9.6 Total Bilirubin 0.90 AST 14 L ALT 33 Alkaline Phosphatase 107 Total Protein 8.2 Albumin 4.4 Globulin 3.8 Albumin/Globulin Ratio 1.2 Lipase 54 Radiography Diagnostic Testing: Clinical Impression(s) from Imaging Studies Abdomen/Pelvis CT 03/21/24 11:30 IMPRESSION: 1. Hepatomegaly with fatty infiltration. 2. No obstructive uropathy. 3. Umbilical hernia containing fat. Reading Location: [facility] Discharge Plan Triage Chief Complaint: Flank Pain ED Midlevel Provider: Gerard Delacruz ED Provider: Alcides Goodrich Dx/Rx/DC Orders Prescriptions: No Action gabapentin 300 MG capsule 600 mg PO BID trazodone 50 mg Tablet 50 mg PO QHS PRN (Reason: Sleep) acetaminophen [Tylenol Ex Str Arthritis Pain] 500 mg Tablet 500 mg PO Q6H PRN (Reason: Pain) ondansetron [ondansetron] 4 MG tablet 8 mg PO Q8H PRN PRN (Reason: Nausea) Qty: 20 0RF Primary Care Provider: Geo Gutiérrez Referrals: Geo Gutiérrez DO [Primary Care Provider] - Print Language: Persian
--- NOTE | 2024-03-21 11:30 | CT_ITS ---
EXAM: CT Abdomen and Pelvis Without Intravenous Contrast CLINICAL INDICATION: TECHNIQUE: Axial computed tomography images of the abdomen and pelvis without intravenous contrast. This CT exam was performed using one or more of the following dose reduction techniques: automated exposure control, adjustment of the mA and/or kV according to patient size, and/or use of iterative reconstruction technique. COMPARISON: No relevant prior studies available. FINDINGS: LUNG BASES: Unremarkable. No mass. No consolidation. ABDOMEN: LIVER: Hepatomegaly with fatty infiltration. GALLBLADDER AND BILE DUCTS: Unremarkable. No calcified stones. No ductal dilation. PANCREAS: Unremarkable. No ductal dilation. SPLEEN: Unremarkable. No splenomegaly. ADRENALS: Unremarkable. No mass. KIDNEYS AND URETERS: Unremarkable. No stones within either kidney. No hydronephrosis. STOMACH AND BOWEL: Unremarkable. No obstruction. No mucosal thickening. PELVIS: APPENDIX: Appendectomy. BLADDER: Unremarkable. No stones. REPRODUCTIVE: Unremarkable as visualized. ABDOMEN and PELVIS: INTRAPERITONEAL SPACE: Unremarkable. No free air. No significant fluid collection. BONES/JOINTS: No acute fracture. No dislocation. SOFT TISSUES: Umbilical hernia containing fat. Bilateral bilateral inguinal hernias containing fat. VASCULATURE: Unremarkable. No abdominal aortic aneurysm. LYMPH NODES: Unremarkable. No enlarged lymph nodes. CT/Abdomen/Pelvis without Cont IMPRESSION: 1. Hepatomegaly with fatty infiltration. 2. No obstructive uropathy. 3. Umbilical hernia containing fat. Reading [facility]
[2024-03-21 11:39] LABS: Absolute Lymphocyte Count 2.57 X10^3/uL (0.83-4.51); Absolute Neutrophil Count 3.2 X10^3/uL (2.0-7.7); Basophil# 0.06 X10^3/uL; Basophil% 0.9 % (0-1); Eosinophil# 0.15 X10^3/uL; Eosinophils% 2.3 % (0-5); Hematocrit 46.9 % (40-54); Hemoglobin 15.9 g/dL (13.0-16.5); Lymphocyte # 2.57 X10^3/ul (0.83-4.51); Lymphocyte % 38.9 % (19-41); Mean Corp Hgb Conc 33.9 g/dL (32-36); Mean Corpuscular Hgb 28.6 pg (27.0-32.0); Mean Corpuscular Volume 84.5 fL (80-94); Mean Platelet Vol. 11.3 fl (6.2-12.0); Monocyte# 0.64 X10^3/uL; Monocyte% 9.7 % (0-10); NRBC Flagged by Analyzer 0 % (0-5); Neutrophil # 3.17 X10^3/uL (2.7-7.7); Platelet Count 230 K/mm3 (150-450); RBC Distribution Width CV 13.2 % (11.6-14.6); RBC Distribution Width SD 40.8 fl (35.1-43.9); Red Blood Count 5.55 M/mm3 (4.6-6.2); White Blood Count 6.6 K/mm3 (4.4-11.0)
[2024-03-21 12:02] LABS: ALB/GLOB Ratio 1.2 RATIO (0.9-2.4); AST(SGOT) 14 U/L (15-37); Alanine Aminotransfer ALT/SGPT 33 U/L (16-61); Albumin, Serum 4.4 g/dL (3.2-5.0); Alkaline Phosphatase 107 U/L (45-117); Anion Gap 6 (5-15); BUN 12 mg/dL (7-18); BUN/Creat Ratio 14.4 RATIO (10-20); Calcium,Total 9.6 mg/dL (8.5-10.1); Chloride 106 mmol/L (98-107); Creatinine, Serum 0.83 mg/dL (0.70-1.30); EST Glomerular Filtration Rate 107 mL/min (>60); Est Glom Filt Rate - Afr Amer 130 mL/min (>60); Estimated Creatinine Clearance 144.67 ml/min; Globulin 3.8 g/dL (2.2-4.2); Glucose 99 mg/dL (74-106); Lipase 54 U/L (13-75); Protein, Total 8.2 g/dL (6.4-8.2); Sodium Level 139 mmol/L (136-145)
[2024-03-21 12:34] VITALS: BP 167/114; PULSE 87; RESP 16; TEMP 36.5; O2SAT 100
[2024-03-21 12:36] LABS: Bacteria 0 SEEN /hpf (None Seen); Mucous, Urine 0 SEEN /hpf (<or=2+); Red Blood Cells-Urine 0 SEEN /hpf (0-5); Squamous Epithelial Cells - UA 0 SEEN /hpf (0-5); White Blood Cells 0 SEEN /hpf (0-5)
[2024-03-21 12:40] LABS: Color, Urine Straw (Yellow); Glucose, Dipstick Normal (Normal); Ketone-Dipstick Negative (Negative); Leukocyte Esterase-Dipstick Negative /ul (Negative); Nitrite-Dipstick Negative (Negative); Occult Blood-Urine Negative /ul (Negative); Protein-Dipstick Negative (Negative); Specific Gravity, Urine 1.005 (1.002-1.030); Urine Bilirubin Dipstick Negative (Negative); Urine Clarity Clear (Clear); Urine Urobilinogen Normal (Normal)
== END 2024-03-21 12:40 | disposition home or self-care (01) ==
PROVIDERS: Nurse Practitioner; Emergency Provider Emergency Medicine; PCP Preventive Medicine Occupational Medicine; Visit Provider Emergency Medicine
DX: R10.11 Right upper quadrant pain (principal); R07.81 Pleurodynia; R35.0 Frequency of micturition
CPT/HCPCS: 74176; 80053; 81001; 83690; 85025; 96361; 96374; 96375; 99283; A4216; J2405

== ENCOUNTER 2024-06-28 08:07 | Emergency (ER) | payer OTHER, SELFPAY ==
[2024-06-28 08:08] VITALS: BP 170/109; PULSE 75; RESP 19; TEMP 36.7; O2SAT 96; BMI 29.5
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
[2024-06-28] MEDS: Ibuprofen 400 MG Tablet 800 MG PO (08:39)
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
[2024-06-28 09:50] VITALS: BP 142/80; PULSE 88; RESP 20; TEMP 36.6; O2SAT 97
== END 2024-06-28 10:30 | disposition home or self-care (01) ==
PROVIDERS: Emergency Provider Emergency Medicine; PCP Preventive Medicine Occupational Medicine; Visit Provider Emergency Medicine
DX: M25.512 Pain in left shoulder (principal); S40.012A Contusion of left shoulder, initial encounter; Y92.410 Unspecified street and highway as the place of occurrence of the external cause; V89.2XXA Person injured in unspecified motor-vehicle accident, traffic, initial encounter; Z90.49 Acquired absence of other specified parts of digestive tract
CPT/HCPCS: 73030; 99283

== ENCOUNTER 2024-09-01 00:48 | Emergency (ER) | payer OTHER, SELFPAY ==
[2024-09-01 00:48] VITALS: PULSE 94; RESP 16; TEMP 530.7; TEMP 987.2; O2SAT 96; BMI 29.5
--- OUTSIDE RECORDS SUMMARY | 2024-09-01 01:24 | XMS RPT_ITS | CCD ---
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 Normal Not Detected [facility] Comment on above: Performed By: #### S PAULPA #### [address] [place], [place] [address] Group A Strep PCR Int Normal [facility] Comment on above: Result Comment: Nega tive Results: Negative for Streptococcus pyogenes by PCR. A negative test result does not exclude the possibility of infection because the test result may be affected by improper specimen collection, technical error, sample mix-up, or because the number of organisms in the sample is below the limit of detection of the test. The Xpert Xpress Strep A test should not be used as the sole basis for treatment or other patient management decisions. The Xpert Xpress Strep A test does not differentiate asymptomatic carriers of Group A streptococci from those exhibiting streptococcal infection. The results from the Xpert Xpress Strep A test should be interpreted in conjunction with other laboratory and clinical data available to the clinician. The Xpert Xpress Strep A Assay is a real-time polymerase chain reaction (PCR) based qualitative in vitro diagnostic test for the direct detection of Streptococcus pyogenes (Group A Beta hemolytic Streptococcus) in throat swab specimens from patients with signs and symptoms of pharyngitis. The assay is not intended to monitor treatment for Group A Streptococcus infections. See Interp Performed By: #### S ALICIA #### [address] [place], [place] [address] Abdomen/Pelvis without Conto n 03-21-2024 Abdomen/Pelvis without Cont [facility] Imaging Services [address], [place] [id number] Abdomen/Pelvis without Cont MR#: [id number] Acct: [id number] Name: JEYSON DAN Rep #: [id number] : 1980 M 43 From: Panda Tian MD PCP: Dr. Harjeet Gutiérrez, DO Status: REG ER Study: Abdomen/Pelvis without Cont Date of Exam: 05/10 Exam# [id number] Ordering Dr: Gerard Delacruz MARINE FIRER-C EXAM: CT Abdomen and Pelvis Without Intravenous Contrast CLINICAL INDICATION: TECHNIQUE: Axial computed tomography images of the abdomen and pelvis without intravenous contrast. This CT exam was performed using one or more of the following dose reduction techniques: automated exposure control, adjustment of the mA and/or kV according to patient size, and/or use of iterative reconstruction technique. COMPARISON: No relevant prior studies available. FINDINGS: LUNG BASES: Unremarkable. No mass. No consolidation. ABDOMEN: LIVER: Hepatomegaly with fatty infiltration. GALLBLADDER AND BILE DUCTS: Unremarkable. No calcified stones. No ductal dilation. PANCREAS: Unremarkable. No ductal dilation. SPLEEN: Unremarkable. No splenomegaly. ADRENALS: Unremarkable. No mass. KIDNEYS AND URETERS: Unremarkable. No stones within either kidney. No hydronephrosis. STOMACH AND BOWEL: Unremarkable. No obstruction. No mucosal thickening. PELVIS: APPENDIX: Appendectomy. BLADDER: Unremarkable. No stones. REPRODUCTIVE: Unremarkable as visualized. ABDOMEN and PELVIS: INTRAPERITONEAL SPACE: Unremarkable. No free air. No significant fluid collection. BONES/JOINTS: No acute fracture. No dislocation. SOFT TISSUES: Umbilical hernia containing fat. Bilateral bilateral inguinal hernias containing fat. VASCULATURE: Unremarkable. No abdominal aortic aneurysm. LYMPH NODES: Unremarkable. No enlarged lymph nodes. CT/Abdomen/Pelvis without Cont IMPRESSION: 1. Hepatomegaly with fatty infiltration. 2. No obstructive uropathy. 3. Umbilical hernia containing fat. Reading Location: [facility] CC: CHETAN Delacruz; Dr. Harjeet Gutiérrez DO Cleaner And Dyer: Signed Normal [facility] Absolute lymphocyte countOrd ered By: Gerard Delacruz on 03-21-2024 Lymphocytes Auto (Unsp spec) [#/Vol] 2.57 10*3/uL 0.83-4.51 [facility] Absolute neutrophil countOrd ered By: Gerard Delacruz on 03-21-2024 Neutrophils (Bld) [#/Vol] 3.2 10*3/uL 2.0-7.7 [facility] Albumin to globulin ratioOrd ered By: Gerard Delacruz on 03-21-2024 Albumin/Globulin [Mass ratio] 1.2 {ratio} 0.9-2.4 [facility] Automated lymphocyte count a s percentage of total leukocytesOrdered By: Gerard Delacruz on 03-21-2024 Lymphocytes/100 WBC Auto (Unsp spec) 38.9 % 19-41 [facility] Basophil percentageOrdered B y: Gerard Delacruz on 03-21-2024 Basophils/100 WBC (Bld) 0.9 % 0-1 [facility] Bilirubin Test strip Ql (U)O rdered By: Gerard Cruzwander on 03-21-2024 Bilirubin Ql (U) Negative Negative [facility] Bilirubin, totalOrdered By: Gerard Delacruz on 03-21-2024 Bilirubin [Mass/Vol] 0.90 mg/dL 0.20-1.00 [facility] Comment on above: For patients on eltr ombopag therapy, use of Dimension [place] TBIL is not recommended. Blood urea nitrogen (BUN)/cr eatinine ratioOrdered By: Gerard Delacruz on 03-21-2024 Urea nitrogen/Creatinine [Mass ratio] 14.4 mg/mg 10-20 [facility] CBC W/Diff, Automatedon Absolute Lymph 2.57 X10 3/uL Normal 0.83-4.51 [facility] Comment on above: Performed By: #### L 100.0100, L500.4050, L501.2450 #### [facility] [address] [place], [address] Absolute Neut 3.2 X10 3/uL Normal 2.0-7.7 [facility] Comment on above: Performed By: #### L 100.0100, L500.4050, L501.2450 #### [facility] [address] [place], [address] Basophils/100 WBC (Bld) 0.9 % Normal 0-1 [facility] Comment on above: Performed By: #### L 100.0100, L500.4050, L501.2450 #### [facility] [address] [place], [address] Eosinophils/100 WBC (Bld) 2.3 % Normal 0-5 [facility] Comment on above: Performed By: #### L 100.0100, L500.4050, L501.2450 #### [facility] [address] [place], [address] Erythrocyte distribution width (RBC) [Ratio] 13.2 % Normal 11.6-14.6 [facility] Comment on above: Performed By: #### L 100.0100, L500.4050, L501.2450 #### [facility] [address] [place], [address] Hematocrit (Bld) [Volume fraction] 46.9 % Normal 40-54 [facility] Comment on above: Performed By: #### L 100.0100, L500.4050, L501.2450 #### [facility] [address] [place], [address] Hemoglobin (Bld) [Mass/Vol] 15.9 g/dL Normal 13.0-16.5 [facility] Comment on above: Performed By: #### L 100.0100, L500.4050, L501.2450 #### [facility] [address] [place], [address] IG% 0.200 Normal 0.0-0.9 [facility] Comment on above: Result Comment: IG% - Immature Granulocytes (promyelocytes, myelocytes and metamyelocytes) > 1% indicates that a LEFT SHIFT is Present. Performed By: #### L 100.0100, L500.4050, L501.2450 #### [facility] [address] [place], [address] Lymphocytes/100 WBC (Bld) 38.9 % Normal 19-41 [facility] Comment on above: Performed By: #### L 100.0100, L500.4050, L501.2450 #### [facility] [address] [place], [address] MCH (RBC) [Entitic mass] 28.6 pg Normal 27.0-32.0 [facility] Comment on above: Performed By: #### L 100.0100, L500.4050, L501.2450 #### [facility] [address] [place], [address] MCHC (RBC) [Mass/Vol] 33.9 g/dL Normal 32-36 [facility] Comment on above: Performed By: #### L 100.0100, L500.4050, L501.2450 #### [facility] [address] [place], [address] MCV (RBC) [Entitic vol] 84.5 fL Normal 80-94 [facility] Comment on above: Performed By: #### L 100.0100, L500.4050, L501.2450 #### [facility] [address] [place], [address] Monocytes/100 WBC (Bld) 9.7 % Normal 0-10 [facility] Comment on above: Performed By: #### L 100.0100, L500.4050, L501.2450 #### [facility] [address] [place], [address] Neutrophils/100 WBC (Bld) 48.0 % Normal 47-70 [facility] Comment on above: Performed By: #### L 100.0100, L500.4050, L501.2450 #### [facility] [address] [place], [address] Nucleated RBC (Bld) [#/Vol] 0 10*3/uL Normal 0-5 [facility] Comment on above: Performed By: #### L 100.0100, L500.4050, L501.2450 #### [facility] [address] [place], [address] Platelet mean volume (Bld) [Entitic vol] 11.3 fL Normal 6.2-12.0 [facility] Comment on above: Performed By: #### L 100.0100, L500.4050, L501.2450 #### [facility] [address] [place], [address] Platelets (Bld) [#/Vol] 230 10*3/uL Normal 150-450 [facility] Comment on above: Performed By: #### L 100.0100, L500.4050, L501.2450 #### [facility] [address] [place], [address] RBC (Bld) [#/Vol] 5.55 10*6/uL Normal 4.6-6.2 [facility] Comment on above: Performed By: #### L 100.0100, L500.4050, L501.2450 #### [facility] [address] [place], [address] RDW SD 40.8 fl Normal 35.1-43.9 [facility] Comment on above: Performed By: #### L 100.0100, L500.4050, L501.2450 #### [facility] [address] [place], [address] WBC (Bld) [#/Vol] 6.6 10*3/uL Normal 4.4-11.0 [facility] [place] Comment on above: Performed By: #### L 100.0100, L500.4050, L501.2450 #### [facility] [address] [place], [address] Carbon dioxide measurementOr dered By: Gerard Delacruz on 03-21-2024 CO2 [Moles/Vol] 27.0 mmol/L 21.0-32.0 [facility] Chloride measurementOrdered By: Gerard Delacruz on 03-21-2024 Chloride [Moles/Vol] 106 mmol/L 98-107 [facility] Comprehensive Metabolic Prof ilon 03-21-2024 Albumin [Mass/Vol] 4.4 g/dL Normal 3.2-5.0 [facility] [place] Comment on above: Performed By: #### L 100.0100, L500.4050, L501.2450 #### [facility] [address] [place], [address] Albumin/Globulin [Mass ratio] 1.2 {ratio} Normal 0.9-2.4 [facility] Comment on above: Performed By: #### L 100.0100, L500.4050, L501.2450 #### [facility] [address] [place], [address] ALK P 107 U/L Normal 45-117 [facility] Comment on above: Performed By: #### L 100.0100, L500.4050, L501.2450 #### [facility] [address] [place], [address] ALT [Catalytic activity/Vol] 33 U/L Normal 16-61 [facility] Comment on above: Performed By: #### L 100.0100, L500.4050, L501.2450 #### [facility] [address] [place], [address] AST [Catalytic activity/Vol] 14 U/L Low 15-37 [facility] Comment on above: Performed By: #### L 100.0100, L500.4050, L501.2450 #### [facility] [address] [place], [address] Bilirubin [Mass/Vol] 0.90 mg/dL Normal 0.20-1.00 [facility] Comment on above: Result Comment: For patients on eltrombopag therapy, use of Dimension [place] TBIL is not recommended. Performed By: #### L 100.0100, L500.4050, L501.2450 #### [facility] [address] [place], [address] BUN/CRE 14.4 RATIO Normal 10-20 [facility] Comment on above: Performed By: #### L 100.0100, L500.4050, L501.2450 #### [facility] [address] [place], [address] CA,Total 9.6 mg/dL Normal 8.5-10.1 [facility] Comment on above: Performed By: #### L 100.0100, L500.4050, L501.2450 #### [facility] [address] [place], [address] Chloride [Moles/Vol] 106 mmol/L Normal 98-107 [facility] Comment on above: Performed By: #### L 100.0100, L500.4050, L501.2450 #### [facility] [address] [place], [address] CO2 [Moles/Vol] 27.0 mmol/L Normal 21.0-32.0 [facility] Comment on above: Performed By: #### L 100.0100, L500.4050, L501.2450 #### [facility] [address] [place], [address] Creatinine [Mass/Vol] 0.83 mg/dL Normal 0.70-1.30 [facility] Comment on above: Result Comment: The validity of the calculated GFR GFRAA in patients over 70 years has not been determined. Clinical correlation is essential. Performed By: #### L 100.0100, L500.4050, L501.2450 #### [facility] [address] [place], [address] ECRCL 144.67 ml/min Normal [facility] Comment on above: Performed By: #### L 100.0100, L500.4050, L501.2450 #### [facility] [address] [place], [address] EST GFR - AA 130 mL/min Normal >60 [facility] Comment on above: Result Comment: Afri can [place] GFR Calc Performed By: #### L 100.0100, L500.4050, L501.2450 #### [facility] [address] [place], [address] GAP 6 Normal 5-15 [facility] Comment on above: Performed By: #### L 100.0100, L500.4050, L501.2450 #### [facility] [address] [place], [address] GFR/1.73 sq M.predicted among non-blacks MDRD (S/P/Bld) [Vol rate/Area] 107 mL/min/{1.73_m2} Normal >60 [facility] Comment on above: Result Comment: Non- GFR Calc Performed By: #### L 100.0100, L500.4050, L501.2450 #### [facility] [address] [place], [address] Globulin (S) [Mass/Vol] 3.8 g/dL Normal 2.2-4.2 [facility] Comment on above: Performed By: #### L 100.0100, L500.4050, L501.2450 #### [facility] [address] [place], [address] Glucose [Mass/Vol] 99 mg/dL Normal 74-106 [facility] [place] Comment on above: Performed By: #### L 100.0100, L500.4050, L501.2450 #### [facility] [address] [place], [address] Potassium [Moles/Vol] 4.0 mmol/L Normal 3.5-5.1 [facility] Comment on above: Performed By: #### L 100.0100, L500.4050, L501.2450 #### [facility] [address] [place], [address] Sodium [Moles/Vol] 139 mmol/L Normal 136-145 [facility] Comment on above: Performed By: #### L 100.0100, L500.4050, L501.2450 #### [facility] [address] [place], [address] T PROT 8.2 g/dL Normal 6.4-8.2 [facility] Comment on above: Performed By: #### L 100.0100, L500.4050, L501.2450 #### [facility] [address] [place], [address] Urea nitrogen [Mass/Vol] 12 mg/dL Normal 7-18 [facility] Comment on above: Performed By: #### L 100.0100, L500.4050, L501.2450 #### [facility] [address] [place], [address] Emergency Department Summary on 03-21-2024 Emergency Department Summary [facility] Medical Records Department [address] [place] [address] Emergency Department Summary 03/21/24 MR#: [id number] Acct: [id number] Name: JEYSON DAN Rep #: [id number] : 1980 43 From: Alcides Goodrich MD PCP: Dr. Harjeet Gutiérrez, DO Status:REG ER Location: ED HPI History of Present Illness Chief Complaint: Flank Pain Narrative Narrative: Patient is a 43-year-old male with no significant medical history presents to the emergency department with 3 days of right sided flank pain. Patient states he was doing a leg press at a gym, he felt some pop in his right lower chest. Over the last couple days, the patient has had worsening pain. Today he states that the pain was almost unbearable, and he decided to come to the emergency department. He also notes that he is having urinary frequency. Denies any fever or chills, denies any specific nausea or vomiting. [facility] Medical History Anxiety Arthritis Chronic pain History of steroid therapy Migraine headache Non-smoker Wears dentures Wears glasses Home Medications ???Medication ???Instructions ???Recorded ???Last Taken ???Type gabapentin 300 mg capsule 600 mg PO BID NERVE PAIN 12/12/16 07/24/20 21:00 History acetaminophen 500 mg tablet 500 mg PO Q6H PRN Pain 07/12/20 Un known History trazodone 50 mg tablet 50 mg PO QHS PRN Sleep 07/12/20 Un known History ondansetron 4 mg disintegrating 8 mg (2 x 4 mg) PO Q8H PRN PRN 01/06 Unknown Rx tablet Nausea #20 tabs hydrocodone-acetamin ophen 5-325mg 1 tab PO Q4H PRN PRN Pain 3 days 03/21/24 Unknown Rx 5mg-325mg #10 TABLETS Allergy/AdvReac Type Severity Reaction Status Date / Time No Known Allergies Allergy Verified 03/21/24 11:07 Surgical History Hx laparoscopic cholecystectomy Hx of tonsillectomy S/P hip arthroscopy Social History Smoking Status: Never smoker ROS ROS ED ROS Narrative Constitutional: Negative for fever, chills, weight loss, weakness Eyes: Negative for vision loss, vision change, double vision ENT: Negative for any sore throat, ear pain, congestion Cardiovascular: Negative for any chest pain, tightness, palpitations Respiratory: Negative for any cough, sputum production, hemoptysis, dyspnea, dyspnea on exertion, orthopnea Gastrointestinal: Negative for any abdominal pain, nausea, vomiting, diarrhea, constipation, blood in stool, blood in vomit : Negative for any urinary frequency, dysuria, retention, blood in urine Muscle skeletal: Negative for any neck pain, back pain. Positive for right-sided flank pain, right abdominal pain Neurological: Negative for any headache, syncope, dizziness Skin: Negative for any rashes, itching, abrasions, lacerations Psychiatric: Negative for any depression, anxiety, stress, suicidal ideation, homicidal ideation Hematologic: Negative for any excessive bruising, easy bleeding EXAM Physical Exam Narrative Exam Narrative: Vital signs reviewed. On my initial evaluation, patient does look to be in discomfort. Patient slightly sweaty, patient is hypertensive. HEET: Head normocephalic atraumatic, TMs clear bilaterally. Posterior pharynx is clear, moist mucous membranes. Nares clear bilaterally. Neck: Supple with no lymphadenopathy or tenderness. No signs of meningismus. Cardiac: Regular rate and rhythm no murmurs gallops or rubs, equal peripheral pulses bilaterally. Respiratory: Lungs clear to auscultation bilaterally. No chest tenderness. Abdomen: Soft,nondistended. No abdominal bruit or pulsatile masses. No hepatosplenomegaly. Patient's tenderness is just under the right ribs however also into the flank area. There is no CVA tenderness. Extremities: No peripheral edema, no signs of gross trauma or deformity. Active full range of motion of all extremities. Neuro: Cranial nerves II through XII intact, no focal neurological deficits. Skin: Clean dry and intact with no rash, purpura, petechiae, vesicles or pustules. Backs/flank: No CVA tenderness, no midline spinal tenderness, no deformity. Psych: Normal mood and affect. No SI, HI or acute psychosis. Const Vital Signs: 03/21/24 11:01 Temperature 97.8 F Temperature Source Oral Pulse Rate 86 Respiratory Rate 15 Blood Pressure 192/118 H Blood Pressure Mean 142 Pulse Ox 97 Oxygen Delivery Method Room Air Positive well nourished and well developed General Appearance ED: well developed Physical Exam Const Vital Signs: 03/21/24 11:01 Temperature 97.8 F Temperature Source Oral Pulse Rate 86 Respiratory Rate 15 Blood Pressure 192/118 H Blood Pressure Mean 142 (more content not included)... Normal [facility] Eosinophil percentageOrdered By: Gerard Delacruz on 03-21-2024 Eosinophils/100 WBC (Bld) 2.3 % 0-5 [facility] Erythrocyte distribution wid th ratioOrdered By: Gerard Delacruz on 03-21-2024 Erythrocyte distribution width (RBC) [Ratio] 13.2 % 11.6-14.6 [facility] Erythrocyte distribution wid th standard deviationOrdered By: Gerard Delacruz on 03-21-2024 Erythrocyte distribution width (RBC) [Ratio] 40.8 fl 35.1-43.9 [facility] Glomerular filtration rate ( GFR) estimationOrdered By: Gerard Delacruz on 03-21-2024 GFR/1.73 sq M.predicted among non-blacks MDRD (S/P/Bld) [Vol rate/Area] 107 mL/min/{1.73_m2} >60 [facility] Comment on above: Non- GFR Calc Glucose measurementOrdered B y: Gerard Delacruz on 03-21-2024 Glucose [Mass/Vol] 99 mg/dL 74-106 [facility] Hematocrit Auto (Bld) [Volum e fraction]Ordered By: Gerard Delacruz on 03-21-2024 Hematocrit (Bld) [Volume fraction] 46.9 % 40-54 [facility] Hemoglobin measurementOrdere d By: Gerard Delacruz on 03-21-2024 Hemoglobin (Bld) [Mass/Vol] 15.9 g/dL 13.0-16.5 [facility] Immature granulocytes/100 WB C Auto (Bld)Ordered By: Gerard Delacruz on 03-21-2024 Immature granulocytes/100 WBC (Bld) 0.200 % 0.0-0.9 [facility] Comment on above: IG% - Immature Granu locytes (promyelocytes, myelocytes and metamyelocytes) > 1% indicates that a LEFT SHIFT is Present. Ketones Test strip Ql (U)Ord ered By: Gerard Delacruz on 03-21-2024 Ketones Ql (U) Negative Negative [facility] - Chemistry and C hemistry - challengeOrdered By: Gerard Delacruz on 03-21-2024 AST [Catalytic activity/Vol] 14 U/L Low 15-37 [facility] Lipaseon 03-21-2024 Lipase [Catalytic activity/Vol] 54 U/L Normal 13-75 [facility] Comment on above: Result Comment: Karolina hutchinson note: LIPASE revised reference range effective 22. New Lipase methodology. Expected to produce lower values than the previous assay method. NEW Reference Range: 13 - 75 U/L Performed By: #### L 100.0100, L500.4050, L501.2450 #### [facility] [address] [place], [address] Lipase measurementOrdered By : Gerard Delacruz on 03-21-2024 Lipase [Catalytic activity/Vol] 54 U/L 13-75 [facility] Comment on above: Please note:LIPASE r evised reference range effective 22. New Lipase methodology. Expected to produce lower values than the previous assay method. NEW Reference Range: 13 - 75 U/L MCV (mean corpuscular volume ) determinationOrdered By: Gerard Delacruz on 03-21-2024 MCV (RBC) [Entitic vol] 84.5 fL 80-94 [facility] Mean corpuscular hemoglobin (MCH) determinationOrdered By: Gerard Delacruz on 03-21-2024 MCH (RBC) [Entitic mass] 28.6 pg 27.0-32.0 [facility] Mean corpuscular hemoglobin concentration (MCHC) determinationOrdered By: Gerard Delacruz on 03-21-2024 MCHC (RBC) [Mass/Vol] 33.9 g/dL 32-36 [facility] Mean platelet volume determi nationOrdered By: Gerard Delacruz on 03-21-2024 Platelet mean volume (Bld) [Entitic vol] 11.3 fL 6.2-12.0 [facility] Microscopic analysis of urin e for red blood cells (RBC)Ordered By: Gerard Delacruz on 03-21-2024 Microscopic analysis of urine for red blood cells (RBC) 0 SEEN /hpf 0-5 [facility] Monocyte percentageOrdered B y: Gerard Delacruz on 03-21-2024 Monocytes/100 WBC (Bld) 9.7 % 0-10 [facility] Mucus LM Ql (Urine sed)Order ed By: Gerard Delacruz on 03-21-2024 Mucus Ql (Urine sed) 0 SEEN /hpf [facility] Neutrophil percentageOrdered By: Gerard Delacruz on 03-21-2024 Neutrophils/100 WBC (Bld) 48.0 % 47-70 [facility] Nitrite Test strip Ql (U)Ord ered By: Gerard Delacruz on 03-21-2024 Nitrite Ql (U) Negative Negative [facility] Nucleated red blood cell per centageOrdered By: Gerard Delacruz on 03-21-2024 Nucleated RBC/100 WBC (Bld) [Ratio] 0 % 0-5 [facility] Platelet countOrdered By: Kwesi Delacruz on 03-21-2024 Platelets (Bld) [#/Vol] 230 10*3/uL 150-450 [facility] Potassium measurementOrdered By: Gerard Delacruz on 03-21-2024 Potassium [Moles/Vol] 4.0 mmol/L 3.5-5.1 [facility] Protein Test strip Ql (U)Ord ered By: Gerard Delacruz on 03-21-2024 Protein Ql (U) Negative Negative [facility] RBC Auto (Bld) [#/Vol]Ordere d By: Gerard Delacruz on 03-21-2024 RBC (Bld) [#/Vol] 5.55 10*6/uL 4.6-6.2 [facility] Serum anion gap measurementO rdered By: Gerard Delacruz on 03-21-2024 Anion gap [Moles/Vol] 6 mmol/L 5-15 [facility] Serum globulin measurementOr dered By: Gerard Delacruz on 03-21-2024 Globulin (S) [Mass/Vol] 3.8 g/dL 2.2-4.2 [facility] Serum or plasma alanine gracia otransferase (ALT) measurementOrdered By: Gerard Delacruz on 03-21-2024 ALT [Catalytic activity/Vol] 33 U/L 16-61 [facility] Serum or plasma albumin gela urement (mass/volume)Ordered By: Gerard Delacruz on 03-21-2024 Albumin [Mass/Vol] 4.4 g/dL 3.2-5.0 [facility] Serum or plasma alkaline alex sphatase measurementOrdered By: Gerard Delacruz on 03-21-2024 ALP [Catalytic activity/Vol] 107 U/L 45-117 [facility] Serum or plasma calcium gela urement (mass/volume)Ordered By: Gerard Delacruz on 03-21-2024 Calcium [Mass/Vol] 9.6 mg/dL 8.5-10.1 [facility] Serum or plasma creatinine m easurement (mass/volume)Ordered By: Gerard Delacruz on 03-21-2024 Creatinine [Mass/Vol] 0.83 mg/dL 0.70-1.30 [facility] Comment on above: The validity of the calculated GFR & GFRAA in patients over 70 years has not been determined. Clinical correlation is essential. Serum or plasma urea nitroge n measurement (mass/volume)Ordered By: Gerard Delacruz on 03-21-2024 Urea nitrogen [Mass/Vol] 12 mg/dL 7-18 [facility] Sodium levelOrdered By: Gerard Delacruz on 03-21-2024 Sodium [Moles/Vol] 139 mmol/L 136-145 [facility] Squamous epithelial cells de tection in urine sediment by light microscopyOrdered By: Gerard Delacruz on 03-21-2024 Epithelial cells.squamous LM Ql (Urine sed) 0 SEEN /hpf 0-5 [facility] Total proteinOrdered By: Anika Delacruz on 03-21-2024 Protein [Mass/Vol] 8.2 g/dL 6.4-8.2 [facility] Urinalysis, Completeon 03-21 BACTERIA 0 SEEN Normal None Seen [facility] Comment on above: Order Comment: MIRIAN CTOR TO SPECIFY Performed By: #### L 400.0001 #### [facility] [address] [place], [address] EPI,SQUAMOUS 0 SEEN Normal 0-[address] [place] [address] Comment on above: Order Comment: MIRIAN CTOR TO SPECIFY Performed By: #### L 400.0001 #### [facility] [address] [place], [address] Mucus Ql (Urine sed) 0 SEEN Normal [facility] Comment on above: Order Comment: MIRIAN CTOR TO SPECIFY Performed By: #### L 400.0001 #### [facility] [address] [place], [address] RBC 0 SEEN Normal 0-5 [facility] Comment on above: Order Comment: MIRIAN CTOR TO SPECIFY Performed By: #### L 400.0001 #### [facility] [address] [place], [address] WBC 0 SEEN Normal 0-5 [facility] Comment on above: Order Comment: MIRIAN CTOR TO SPECIFY Performed By: #### L 400.0001 #### [facility] [address] [place], [address] Urine clarityOrdered By: Anika Delacruz on 03-21-2024 Clarity (U) Clear Clear [facility] Urine color determinationOrd ered By: Gerard Delacruz on 03-21-2024 Color (U) Straw Yellow [facility] Urine glucose detectionOrder ed By: Gerard Delacruz on 03-21-2024 Glucose Ql (U) Normal mg/dl Normal [facility] Urine leukocyte esterase det ection by dipstickOrdered By: Gerard Delacruz on 03-21-2024 Leukocyte esterase Test strip Ql (U) Negative Negative [facility] Urine pHOrdered By: Gerard villalobos on 03-21-2024 pH (U) 7.0 [pH] 5.0 - 8.0 [facility] Urine sediment bacteria coun t by microscopy (number/high power field)Ordered By: Gerard Delacruz on 03-21-2024 Bacteria LM.HPF (Urine sed) [#/Area] 0 /[HPF] None Seen [facility] Urine specific gravity measu rementOrdered By: Gerard Delacruz on 03-21-2024 Specific gravity (U) [Rel density] 1.005 1.002-1.030 [facility] Urine urobilinogen measureme ntOrdered By: Gerard Delacruz on 03-21-2024 Urobilinogen Ql (U) Normal mg/dl Normal [facility] White blood cell (WBC) count Ordered By: Gerard Delacruz on 03-21-2024 WBC (Bld) [#/Vol] 6.6 10*3/uL 4.4-11.0 [facility] White blood cell countOrdere d By: Gerard Delacruz on 03-21-2024 White blood cell count 0 SEEN /hpf 0-5 [facility] Office Visiton 12-23-2022 Follow-up visit [id number] Jeyson Dan 1980 M Date Provider Department Center 12/23/2022 RAJAN FALCON [facility] None No family history on file Level of Service:24692 IN OFFICE/OUTPATIENT NEW LOW MDM 30-44 MINUTES (25) Reason for Visit and Comments: New Patient [542] - Left Shoulder Normal [facility] PATINSon 12-23-2022 PATINS ADDITIONAL INFORMATION ([email or web address].org) SHOULDER: [email or web address]/globalassets/ [email or web address] [email or web address] Normal [facility] Progress Noteon 12-23-2022 Progress Note [facility] [address] [facility] [address] Dept: [phone] Dept Chief Complaint Patient presents with New Patient Left Shoulder Subjective History of Present Illness: Jeyson Dan is a 42 y.o. right hand dominant male who presents today for evaluation of left shoulder pain. Location: anteriorly on the shoulder and radiates to the lateral line- patient stated he develop bulge under the arm pit Onset: 1 month and has been gradually worsening- patient went to follow up with his PCP. PCP ordered an US showed enlarged lymph nodes. PCP referred to Sports medicine for evaluation of the shoulder Injury: no Quality: aching, throbbing, and sharp Mechanical symptoms: intermittent weakness Radiation of symptoms: no Severity: 6/10 at rest and 10/10 at worst Exacerbating factor(s): shoulder flexion, external rotation, sleeping is alternated Relieving factor(s): rest Timing: all day Imaging to date: US completed 11/13/2022 Treatment to date: PT/OT/HEP: no Ice: no Heat: no Medications: Tylenol: no NSAIDs: yes, Ibuprofen/Motrin/Adv il, not helpful Oral steroids: no Muscle relaxants: no Nerve medications: no Targeted injections: none Assistive devices: none Prior surgery: no 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 Respiratory: Breathing comfortably on room air. No respiratory distress. Skin: Warm, dry, intact. No visible rashes or erythema overlying area of focused exam. Left Shoulder Exam Tenderness The patient is experiencing tenderness in the biceps tendon, acromion and clavicle. Range of Motion Active abduction: 70 abnormal Passive abduction: normal Extension: 40 abnormal External rotation: normal Forward flexion: 80 abnormal Internal rotation 0 degrees: normal Internal rotation 90 degrees: normal Muscle Strength Abduction: 4/5 Internal rotation: 5/5 External rotation: 5/5 Supraspinatus: 3/5 Subscapularis: 4/5 Biceps: 4/5 Tests Tobar test: positive Cross arm: positive Impingement: positive Drop arm: negative Other Erythema: absent Sensation: normal Pulse: present External Notes None available Labs No results found for: HGBA1C No results found for: CREATININE Imaging Images reviewed with patient today US done 11/13/2022 EMG/NCT N/A Procedure Procedure completed today, details below Verbal and written consent was obtained from the patient for a left SACSi. Consent included possibility of bleeding, infection, hypoglycemia, hyperglycemia, increased pain, steroid flare, and permanent hypopigmentation and fat atrophy. Sterile prep. I injected the patient's bursa after aspiration without withdraw with 1 cc of Betamethasone and 3 cc of 1 % lidocaine. The patient tolerated the procedure well. There were no complications. Assessment Diagnosis Plan 1. Rotator cuff tendinitis, left 2. Acute pain of left shoulder nabumetone (Relafen) 500 MG tablet lidocaine (Xylocaine) 1 % injection 3 mL betamethasone acetate-betamethason e sodium phosphate (Celestone) injection 6 mg Plan Left subdeltoid bursitis with pain. We discussed his clinical evaluation, previous imaging, diagnosis, and shared medical decision treatment plan. The patient was treated with a subacromial bursa cortisone injection and postinjection instructions reviewed. He can use ice or Tylenol for pain or discomfort. Prescription Relafen was sent to his pharmacy. Home exercises were provided at this visit. Consider further imaging or physical therapy if he is not improving. He may follow-up with a phone call update a [employer] message in 1 to 2 weeks or when he returns from [facility]. Follow up if symptoms worsen or fail to improve. Rajan Wolfe MD 12/23/2022 9:36 AM Please note that portions of this note may have been completed with voice recognition software. Documentation reviewed prior to signing but minor errors in traveler changer may have occurred. Normal [facility] US AXILLA LEFTon 11-14-2022 US AXILLA LEFT ORIGINAL EXAMINATION: NONVASCULAR ULTRASOUND OF THE LEFT EXTREMITY 11/13/2022 1:06 pm COMPARISON: None. HISTORY: ORDERING SYSTEM PROVIDED HISTORY: Reason for Exam: Mass anterior portion of the left axillary region times several months FINDINGS: At the site of palpable concern, there appears to be a lymph node measuring 3.1 x 1.1 x 3.0 cm. Additional small lymph nodes noted in the axillary region. IMPRESSION: Nonspecific enlarged lymph node in the left axillary region is identified at the site of palpable concern. This lymph node could be reactive or neoplastic. If the lymph node does not resolve, percutaneous sampling may be performed. Interpreted by: Mason Singer MD Preliminary Report By: Mason Singer MD Electronically signed By Mason Singer MD Dictated Date: 11/14/2022 3:12:06 PM Prelim Date: 11/14/2022 3:13:30 PM Sign Date: 11/14/2022 3:13:30 PM [facility]ing [facility] Low Ext Joint w/ Contras t Righton 03-31-2017 MRI Low Ext Joint w/ Contrast Right Patient Name: JEYSON DAN MRI Exam Date/Time 03/31/2017 10:55:54 EST Exam MRI Low Ext Joint w/ Contrast Right Ordering Physician MD DIANE, ARON GREER Accession Number [id number] CPT4 Codes 29682 () Reason For Exam Pain Report Examination: MRI arthrogram right hip Clinical Indication: Hip pain concern for labral tear Comparison: None Findings: Multiplanar multisequence high field strength MRI images were obtained through the right hip after prior intra-articular contrast. Small kmnzh-ii-iivc axial, coronal, and sagittal along with high-resolution [...] at the anterior superior junction. There is [id number] diffuse articular cartilage thinning. There is a [...] J Transcribed Date and Time: 03/31/2017 12:25 Normal [facility] RF Arthrogram Aspir Inj Ezekiel Jt Righton 03-31-2017 RF Arthrogram Aspir Inj Ezekiel Jt Right Patient Name: JEYSON DAN Fluoroscopy Exam Date/Time 03/31/2017 10:01:39 EST Exam RF Arthrogram Aspir Inj Ezekiel Jt Right Ordering Physician SADIQ KOO RUSSELL Accession Number [id number] [facility] Codes 02456 (), 40853 (RF FLUORO GUIDANCE NEEDLE PLACEMENT) Reason For [...] J Transcribed Date and Time: 03/31/2017 10:22 [facility] Vital Signs Date Time Vital Sign Value Performing Clinician Facility 06-28-2024 09:50-0400 Body temperature 98 [degF] Dr. Harjeet Gutiérrez DO Work Phone: [facility] 06-28-2024 09:50-0400 Diastolic blood pressure 80 mm[Hg] Dr. Harjeet Gutiérrez DO Work Phone: [facility] 06-28-2024 09:50-0400 Heart rate 88 /min Dr. Harjeet Gutiérrez DO Work Phone: [facility] 06-28-2024 09:50-0400 Respiratory rate 20 /min Dr. Harjeet Gutiérrez DO Work Phone: [facility] 06-28-2024 09:50-0400 SaO2% (BldA) [Mass fraction] 97 % Dr. Harjeet Gutiérrez DO Work Phone: [facility] 06-28-2024 09:50-0400 Systolic blood pressure 142 mm[Hg] Dr. Harjeet Gutiérrez DO Work Phone: [facility] 06-28-2024 08:08-0400 Body height 185.[address] Harjeet Gutiérrez DO Work Phone: [facility] 06-28-2024 08:08-0400 Body mass index (BMI) [Ratio] 29.5 kg/m2 Dr. Harjeet Gutiérrez DO Work Phone: [facility] 06-28-2024 08:08-0400 Body weight 101.[address] Harjeet Gutiérrez DO Work Phone: [facility] 03-24-2024 15:18-0500 Diastolic Blood Pressure Non-Invasive 90 mm[Hg] NIDAL CHOUJAA DO [facility] 03-24-2024 15:18-0500 Heart rate 59 /min NIDAL CHOUJAA DO [facility] 03-24-2024 15:18-0500 Respiratory rate 16 /min NIDAL CHOUJAA DO [facility] 03-24-2024 15:18-0500 Systolic Blood Pressure Non-Invasive 134 mm[Hg] NIDAL CHOUJAA DO [facility] 03-24-2024 14:03-0500 Diastolic Blood Pressure Non-Invasive 91 mm[Hg] NIDAL CHOUJAA DO [facility] 03-24-2024 14:03-0500 Heart rate 61 /min NIDAL CHOUJAA DO [facility] 03-24-2024 14:03-0500 Respiratory rate 18 /min NIDAL CHOUJAA DO [facility] 03-24-2024 14:03-0500 Systolic Blood Pressure Non-Invasive 146 mm[Hg] NIDAL CHOUJAA DO [facility] 03-24-2024 12:50-0500 Diastolic Blood Pressure Non-Invasive 106 mm[Hg] NIDAL CHOUJAA DO [facility] 03-24-2024 12:50-0500 Systolic Blood Pressure Non-Invasive 153 mm[Hg] NIDAL CHOUJAA DO [facility] 03-24-2024 12:19-0500 Body height 185.4 cm NIDAL CHOUJAA DO [facility] 03-24-2024 12:19-0500 Body temperature 97.7 [degF] NIDAL CHOUJAA DO [facility] 03-24-2024 12:19-0500 Body weight 100 kg NIDAL CHOUJAA DO [facility] 03-24-2024 12:19-0500 Heart rate 80 /min NIDAL CHOUJAA DO [facility] 03-24-2024 12:19-0500 Respiratory rate 18 /min NIDAL CHOUJAA DO [facility] 03-21-2024 12:34-0500 Body temperature 97.7 [degF] Dr. Harjeet Gutiérrez DO Work Phone: [facility] 03-21-2024 12:34-0500 Diastolic blood pressure 114 mm[Hg] Dr. Harjeet Gutiérrez DO Work Phone: [facility] 03-21-2024 12:34-0500 Heart rate 87 /min Dr. Harjeet Gutiérrez DO Work Phone: [facility] 03-21-2024 12:34-0500 Respiratory rate 16 /min Dr. Harjeet Gutiérrez DO Work Phone: [facility] 03-21-2024 12:34-0500 SaO2% (BldA) [Mass fraction] 100 % Dr. Harjeet Gutiérrez DO Work Phone: [facility] 03-21-2024 12:34-0500 Systolic blood pressure 167 mm[Hg] Dr. Harjeet Gutiérrez DO Work Phone: [facility] 03-21-2024 11:01-0500 Body mass index (BMI) [Ratio] 29.2 kg/m2 Dr. Harjeet Gutiérrez DO Work Phone: [facility] 03-21-2024 11:01-0500 Body weight 100.[address] Harjeet Gutiérrez DO Work Phone: [facility] 12-23-2022 09:36-0500 Body height 185.4 cm Rajan Wolfe MD Work Phone: [facility] 12-23-2022 09:36-0500 Body mass index (BMI) [Ratio] 29.69 kg/m2 Rajan Wolfe MD Work Phone: [facility] 12-23-2022 09:36-0500 Body temperature 97.59 [degF] Rajan Wolfe MD Work Phone: [facility] 12-23-2022 09:36-0500 Body weight 102.06 kg Rajan Wolfe MD Work Phone: [facility] [employer] Encounters Encounter Date Encounter Type Care Provider Facility Start: 07-13-2024 End: 07-17-2024 ambulatory CORI LUO CLICKING MACHINE OPERATOR-KAMRON Facility:[facility] Start: 07-13-2024 End: 07-17-2024 Outreach Lab CORI LUO CLICKING MACHINE OPERATOR-MERCHANDISING SPECIALIST [facility] Start: 07-13-2024 End: 07-17-2024 ambulatory CORI LUO CLICKING MACHINE OPERATOR-KAMRON Facility:[facility] Start: 07-13-2024 End: 07-17-2024 Encounter for general adult medical examination without abnormal findings CORI LUO APRN-KAMRON Facility:[facility] Start: 07-13-2024 End: 07-17-2024 Outreach Lab CORI LUO APRN-MERCHANDISING SPECIALIST [facility] Start: 06-28-2024 End: 06-28-2024 Emergency department patient visit Dr. Harjeet Gutiérrez DO Work Phone: -Emergency Department Work Phone: Start: 05-02-2024 End: 05-02-2024 ambulatory CORI LUO CLICKING MACHINE OPERATOR-MERCHANDISING SPECIALIST [facility] Start: 03-28-2024 End: 03-28-2024 ambulatory CORI VALERIO CLICKING MACHINE OPERATOR-MERCHANDISING SPECIALIST Facility:[facility] Start: 03-28-2024 End: 03-28-2024 Patient encounter procedure CORI VALERIO CLICKING MACHINE OPERATOR-MERCHANDISING SPECIALIST [facility] Start: 03-24-2024 End: 03-24-2024 Emergency department patient visit MAGI HOUSTON DO [facility] Start: 03-21-2024 End: 03-21-2024 Emergency department patient visit Dr. Alcides Goodrich MD -Emergency Department Work Phone: Start: 12-23-2022 End: 12-23-2022 ambulatory RAJAN WOLFE [facility] Start: 12-23-2022 End: 12-23-2022 Office outpatient new 30 minutes Rajan Wolfe MD Work Phone: [facility] Comment on above: Rotator cuff tendini tis, left (Primary Dx); Acute pain of left shoulder Start: 11-13-2022 End: 11-14-2022 ambulatory HARJEET GUTIÉRREZ DO Facility:[facility] Start: 11-13-2022 End: 11-13-2022 Patient encounter procedure HARJEET GTUIÉRREZ DO [facility] Start: 03-31-2017 [facility] Start: 04-21-2014 End: 04-21-2014 Telephone encounter Rafael Cao MD Work Phone: General Surgery Comment on above: Schedule Surgery ( diagnostic laparoscopy, laparoscopic appendectomy) Procedures Date Procedure Procedure Detail Performing Clinician Start: 06-28-2024 Plain X-ray of shoulder Dr. Harjeet Gutiérrez DO Work Phone: Start: 03-21-2024 Urnls dip stick/tabl et reagent auto microscopy Dr. Harjeet Gutiérrez DO Work Phone: Start: 03-21-2024 CT of abdomen and pe lvis without contrast Dr. Harjeet Gutiérrez DO Work Phone: Start: 03-21-[address] Harjeet Gutiérrez DO Work Phone: Start: 03-21-2024 Measurement of renal function Dr. Harjeet Gutiérrez DO Work Phone: Comment on above: GFR Calc Start: 07-25-2020 Prosthetic arthropla sty of the hip HARJEET GUTIÉRREZ DO Comment on above: RIGHT Start: 05-04-2017 Arthroscopy hip diag nostic w/wo synovial byp spx HARJEET GUTIÉRREZ DO Plan of Treatment Date Care Activity Detail Author Start: 10-11-2031 Zoster Vaccines (1 of 2) Zoste r Vaccines (1 of 2) [facility] Start: 12-25-2027 DTaP/Tdap/Td Vaccine s (3 - Td or Tdap) DTaP/Tdap/Td Vaccines (3 - Td or Tdap) [facility] Start: 06-28-2024 [facility] Start: 03-21-2024 [facility] Start: 10-17-2022 Influenza vaccination Influenza Vacc ine (#1) [facility] Start: 04-05-2021 COVID-19 Vaccine (3 - Mixed Product series) COVID-19 Vaccine (3 - Mixed Product series) [facility] Start: 10-17-2020 Influenza vaccination INFLUENZ A (Season Ended) [facility] Start: 11-09-2017 LIPID SCREEN LIPID SCREEN [facility] Start: 2000 Urine microalbumin profile DTAP,TDAP,TD (1 - Tdap) [facility] Start: 10-11-1999 Diabetes mellitus screening Diabetes Screening [facility] Start: 10-11-1999 [facility]IT[facility] Start: 10-11-1999 Hepatitis [facility] Start: 10-11-1999 HIV SCREENING HIV SCREENING [facility] Start: 1993 Adult depression screening assessment DEPRESSION SCREENING [facility] Start: 1982 MMR Vaccines (1 of 1 - Standard series) MMR Vaccines (1 of 1 - Standard series) [facility] Start: 1982 Varicella vaccination Varicell a Vaccines (1 of 2 - 2-dose childhood series) [facility] Start: 1981 Hepatitis B Vaccines (1 of 3 - 3-dose series) Hepatitis B Vaccines (1 of 3 - 3-dose series) [facility] Start: 1981 HIV screening HIV Screening [facility] Start: 1981 Lipid panel Lipid Panel [facility] Patient Education [facility] Work Phone: Patient referral [facility] Work Phone: Immunizations Immunization Date Immunization Notes Care Provider [facility] 02-08-2021 SARS-CoV-2 mRNA (tozinameran) vaccine CORI LUO CLICKING MACHINE OPERATOR-MERCHANDISING SPECIALIST [facility] 05-10-2020 SARS-CoV-2 (COVID-19 ) mRNA-1273 vaccine CORI LUO CLICKING MACHINE OPERATOR-MERCHANDISING SPECIALIST [facility] Comment on above: Result Comment: 2024: TPVAL 12-24-2017 tetanus toxoid, redu mesha diphtheria toxoid, and acellular pertussis vaccine, adsorbed CORI LUO CLICKING MACHINE OPERATOR-MERCHANDISING SPECIALIST [facility] Payers Date Payer Category Payer Private Health Insurance [id number] 2024 Private Health Insurance [id number] 2024 Unknown [id number] 2024 Private Health Insurance 2024 Self-pay 2024 Unknown [id number] 2022 Unknown [id number] 2022 Unknown [id number] 2012 Unknown MMO MMO [employer] [id number] 2012-Present PPO [id number] 2011 Private Health Insurance [employer] [id number] 1981 Unknown [id number] 1981 Unknown [id number] 27 1981 Unknown [id number] 27 1981 Unknown [id number] 27 1981 Unknown [id number] 27 1981 Unknown [id number] 27 Unknown [id number] 63 Unknown [id number] 62 Social History Date Type Detail Facility Start: 04-19-2014 End: 07-13-2024 Tobacco smoking status KYIS Never smoker [facility] Start: 04-19-2014 Tobacco use and exposure Never used [facility] Work Phone: Start: 04-19-2014 Alcohol intake Current non-dr rn emergency room of alcohol (finding) [facility] Start: 1980 Sex Assigned At Not on file [facility] Start: 1980 Sex Assigned At Male A [facility] Start: 12-23-2022 History of Social function [facility] Start: 12-23-2022 Tobacco use panel [facility] Sexual Orientation [facility] Start: 08-11-2018 Sex Male (finding) [facility] Start: 01-25-[address] [facility] Start: 02-20-[address] [facility] Medical Equipment Procedure Code Equipment Code Equipment Origin al Text Equipment Identifier Dates Minimally invasive total replacement of hip joint by anterior approach FEMORAL HEAD FDA Start: 07-25-2020 Minimally invasive total replacement of hip joint by anterior approach HIP STEM FDA Start: 07-25-2020 Minimally invasive total replacement of hip joint by anterior approach TRIDENT ACETABULAR SHELL FDA Start: 07-25-2020 Minimally invasive total replacement of hip joint by anterior approach TRIDENT POLY INSERT FDA Start: 07-25-2020 Functional Status Date Assessment Result Facility 03-24-[address] [facility] 03-24-[address] [facility] Mental Status Date Assessment Result Facility 03-24-2024 Mental Status Orientation Oriented x 4 [facility] 03-24-2024 Mental Status [facility] Clinical Notes 04-21-2014 to 06-28-2024 Note Date & Type Note Facility 06-28-[address] [facility] 06-28-2024 Radiology Diagnostic study note [facility] Imaging Services [address], [place] [address] Shoulder min 2 Views MR#: [id number] Acct: [id number] Name: JEYSON DAN Rep #: [id number] : 1980 M 43 From: Tayo Tracy MD PCP: Dr. Harjeet Gutiérrez, DO Status: REG ER Study:Shoulder min 2 Views Date of Exam: 06/28/24 Exam# [id number] Ordering Dr: Ivan Lr MD PROCEDURE: SHOULDER MIN 2 VIEWS 06/28/2024 REASON FOR EXAM: TRAUMA TECHNIQUE: 4 view(s) of the left shoulder COMPARISON: None. RAD/Shoulder min 2 Views IMPRESSION: Mild degenerative changes are seen of the left acromioclavicular joint, with probable mild associated joint narrowing. The left glenohumeral joint demonstrates minimal degenerative changes, without associated joint narrowing. No fracture or dislocation is evident. If clinical concern persists, khcci-xhmiispprv-ho imaging may be obtained to rule out a currently occult fracture. Reading Location: [place] [address] CC: Dr. Ivan Lr MD; Dr. Harjeet Gutiérrez DO ~ [employer] Dyer: Signed [facility] 03-29-2024 Note . MICRO - Microbiology PROCEDURE: Blood Culture (bacterial) [*1] SOURCE: Blood BODY SITE: COLLECTED DATE/TIME: 03/24/2024 13:04 EST RECEIVED DATE/TIME: 03/24/2024 19:12 EST START DATE/TIME: 03/24/2024 19:12 EST FREE TEXT SOURCE: FINAL REPORTS Final Report [] Verified Date/Time/Personnel: 03/29/2024 19:59 EST Blood Culture: No Growth at 5 days. PRELIMINARY REPORTS Preliminary Report [] Verified Date/Time/Personnel: 03/24/2024 19:59 EST Culture has been received in lab and is no growth to date. Routine cultures are held for 5 days. Performing Locations *1: This test was performed at: [facility], [address] [place] [address], [facility] , [facility] 03-29-2024 Note . MICRO - Microbiology PROCEDURE: Blood Culture (bacterial) [*1] SOURCE: Blood BODY SITE: COLLECTED DATE/TIME: 03/24/2024 13:04 EST RECEIVED DATE/TIME: 03/24/2024 19:12 EST START DATE/TIME: 03/24/2024 19:12 EST FREE TEXT SOURCE: FINAL REPORTS Final Report [] Verified Date/Time/Personnel: 03/29/2024 19:59 EST Blood Culture: No Growth at 5 days. PRELIMINARY REPORTS Preliminary Report [] Verified Date/Time/Personnel: 03/24/2024 19:59 EST Culture has been received in lab and is no growth to date. Routine cultures are held for 5 days. Performing Locations *1: This test was performed at: [facility], [address] [place] [address], [facility] , [facility] 03-28-2024 Note Exam Date Time Procedure Performing Provider Status 03/28/24 9:47 AM XR Ribs 2 Views Righ t/PA Chest (AO) ODALIS NAIR DO; Auth (Verified) [id number] ORIGINAL EXAMINATION: 4 XRAY VIEWS OF RIGHT RIBS WITH 1 XRAY VIEWS OF THE CHEST03/28/2024 9:51 am COMPARISON: 02/08/2020 HISTORY: ORDERING SYSTEM PROVIDED HISTORY: Reason for Exam: severe pain to right lower rib FINDINGS: The cardiac size is normal. No pleural effusion, pneumothorax, or focal consolidation. No acute osseous abnormality or displaced rib fracture. IMPRESSION: No acute radiographic finding. Interpreted by: Odalis Nair DO Preliminary Report By: Odalis Nair DO Electronically signed By Odalis Nair DO Dictated Date: 03/28/2024 3:11:21 PM Prelim Date: 03/28/2024 3:12:35 PM Sign Date: 03/28/2024 3:12:35 PM Ordering Provider: CORI LUO [facility]02-06-2025 Hospital Discharge instructions Patient Education 03/24/2024 14:57:03 Abdominal Pain Abdominal Pain Abdominal pain is pain in the stomach or belly area. Everyone has this pain from time to time. In many cases it goes away on its own. But abdominal pain can sometimes be due to a serious problem, such as appendicitis. So it s important to know when to get help. Causes of abdominal pain There are many possible causes of abdominal pain. Common causes in adults include: Constipation, diarrhea, or gas Stomach acid flowing back up into the esophagus (acid reflux or heartburn) Severe acid reflux, called GERD (gastroesophageal reflux disease) A sore in the lining of the stomach or small intestine (peptic ulcer) Inflammation of the gallbladder, liver, or pancreas Gallstones or kidney stones Appendicitis Intestinal blockage An internal organ pushing through a muscle or other tissue (hernia) Urinary tract infections In women, menstrual cramps, fibroids, ovarian cysts, pelvic inflammatory disease, or endometriosis Inflammation or infection of the intestines, including Crohn's disease and ulcerative colitis Irritable bowel syndrome Diagnosing the cause of abdominal pain Your healthcare provider will give you a physical exam help find the cause of your pain. If needed,you will have tests. Belly pain has many possible causes. So it can be hard to find the reason for your pain. Giving details about your pain can help. Tell your provider where and when you feel the pain, and what makes it better or worse. Also let your provider know if you have other symptoms such as: Fever Tiredness Upset stomach (nausea) Vomiting Changes in bathroom habits Blood in the stool or black, tarry stool Weight loss that you can't explain (involuntary weight loss?) Also report any family history of stomach or intestinal problems, or cancers. Tell your provider about all your alcohol use and drug use. Tell your provider about all medicines you use, including herbs, vitamins, and supplements. Treating abdominal pain Some causes of pain need emergency medical treatment right away. These include appendicitis or a bowel blockage. Other problems can be treated with rest, fluids, or medicines. Your healthcare provider can give you specific instructions for treatment or self-care based on what is causing your pain. If you have vomiting or diarrhea, sip water or other clear fluids. When you are ready to eat solid foods again, start with small amounts of hqin-hb-qhanjk, low- fat foods. These include apple sauce, toast, or crackers. When to get medical care Call 911 or go to the hospital right away if you: Can t pass stool and are vomiting Are vomiting blood or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 Future Appointments Appointment Date:02/02/2023 10:30:00 AM Scheduled Provider:HARJEET GUTIÉRREZ DO Location[facility] [facility] Appointment Type:PC OV Follow Up [facility] Evaluation + Plan note Future Appointments Appointment Date:03/25/2024 01:00:00 PM Scheduled Provider:CORI LUO Location:[facility] Appointment Type:PC OV ED Follow Up Appointment Date:05/17/2024 09:00:00 AM Scheduled Provider:HARJEET GUTIÉRREZ DO Location:[employer] [facility] Appointment Type:PC OV [facility] Evaluation + Plan note Future Appointments Appointment Date:05/17/2024 09:00:00 AM Scheduled Provider:HARJEET GUTIÉRREZ DO Location:[facility] Appointment Type:PC OV Future Scheduled Tests Radiology* US Soft Tissue Mass 03/25/24 [facility] Evaluation + Plan note Future Appointments Appointment Date:10/04/2024 09:00:00 AM Scheduled Provider:CORI LUO Location:[facility] Appointment Type:PC OV Controlled Medication [facility] Evaluation note* Diagnosis Rotator cuff tendinitis, left- Primary Acute pain of left shoulder documented [facility] noteNo assessment information availableWParkview Health [facility] Work Phone: Hospital course Narrative No data available for this section [facility] Hospital Discharge instructions No data available for this section [facility] Hospital Discharge instructions Additional Instructions Report to the [facility] clinic immediately for drug testing as this is a [facility] claim. Rzpj-wht-tthygwl medications like acetaminophen and/or ibuprofen as needed for pain. Continue your gabapentin. Follow-up with occupational medicine/[facility] provider/in our clinic. Exercise your left shoulder a few times a day when possible and do not leave in sling.[facility] Work Phone: Progress note No data available for this section [facility] Reason for referral (narrative)No reason for referral information availableWParkview Health [facility] Work Phone: Summary Purpose Family History No Family History Records Found Relationship Condition Age at Onset Recorded Date/T bright Unknown Family History?- Unknown January 252019 5:53am Family History?- Unknown January 252019 5:53am Family History?No pe rtinent history Unknown December 13, 2016 9:32am Advance Directives No Advanced Directives Records Found Advance Directive Response Recorded Date/ Time Living Will No March 21 1:33pm Do you have a Healthcare Power of Paint Laboratory Technician? No March 21, 2024 1:33pm Do you have a Healthcare Power of Paint Laboratory Technician? No June 28, 2024 8:17am Chief Complaint and Reason for Visit Chief Complaint Admit Date RIGHT FLANK PAIN March 21, 2024 1 1:00am UPPER June 28, 2024 8:07a m Additional Source Comments (unrecognized sect ion and content) No Status Records FoundNo Status Records FoundNo Status Records FoundNo Status Records FoundNo Status Records Found INFORMATION SOURCE (unrecogn ized section and content) DATE CREATED AUTHOR 08/07/2017 [employer] [employer] DATE CREATED AUTHOR AUTHOR'S ORGANIZ ATION 11/21/2022 [facility] ([place]) DATE CREATED AUTHOR AUTHOR'S ORGANIZ ATION 12/24/2022 [facility] [employer] [facility] DATE CREATED AUTHOR AUTHOR'S ORGANIZ ATION 07/16/2024 [facility] DATE CREATED AUTHOR AUTHOR'S ORGANIZ ATION 07/18/2024 [facility] Source Comments (unrecognize d section and content) In the event this informatio n is protected by the Federal Confidentiality of Alcohol and Drug Abuse Patient Records regulations: The Federal rules restrict any use of the information to criminally investigate or prosecute any alcohol or drug abuse patient.[facility] Reason for Visit (unrecogniz ed section and content) Reason Onset Date Comments Schedule Surgery 04/21/2014 04-25-2014 diag nostic laparoscopy, laparoscopic appendectomy Reason Comments New Patient Left Shoulder Patient Care team informatio n (unrecognized section and content) Insurance Claims Analyst Relationship Specialty Start Date End Date Jean-Pierre Reyes DO [address] [place] [address] PCP - General 03/30/17 Team Status: Active Member Role Status Dates Dr. Harjeet Gutiérrez DO Primary Care Provider Active Team Status: Inactive Member Role Status Dates Dr. Harjeet Gutiérrez DO Primary Care Provider Active Start: March 21, 2024 End: March 21, 2024 Dr. Alcides Goodrich MD Attending Provider Active S tart: March 21, 2024 End: March 21, 2024 Dr. Alcides Goodrich MD Emergency Provider Active S tart: March 21, 2024 End: March 21, 2024 Team Status: Inactive Member Role Status Dates Dr. Harjeet Gutiérrez DO Primary Care Provider Active Start: June 28, 2024 End: June 28, 2024 Ivan Lr MD Emergency Provider Active Star t: June 28, 2024 End: June 28, 2024 Goals (unrecognized section and content) Goals may be documented in a n alternate section FOR RECORDS PERTAINING TO PATIENTS WHO ARE OR HAVE BEEN ENROLLED IN A CHEMICAL DEPENDENCY/SUBSTANCEABUSE PROGRAM, SOME INFORMATION MAY BE OMITTED. This clinical summary was aggregated from multiple sources. Caution should be exercised in using it in the provision of clinical care. This summary normalizes information from multiple sources, and as a consequence, information in this document may materially change the coding, format and clinical context of patient data. In addition, data may be omitted in some cases. CLINICAL DECISIONS SHOULD BE BASED ON THE PRIMARY CLINICAL RECORDS. [facility] [employer]* [facility]. provides no warranty or guarantee of the accuracy or completeness of information in this document.
--- OUTSIDE RECORDS SUMMARY | 2024-09-01 01:24 | XMS RPT_ITS | CCD ---
Author Organization [facility] Care Team Providers Care Ramp Service Employee Name Role Phone ARON CONTRERAS Unavailable Unavailab Jean-Pierre Morataya Unavailable Jean-Pierre Reyes Unavailable Unavailable Jean-Pierre Reyes Primary Care Provider HARJEET GUTIÉRREZ DO Primary Care Physician HARJEET GUTIÉRREZ DO Attending Unavailable HARJEET GUTIÉRREZ DO Primary Care Unavailable Jean-Pierre Reyes DO Primary Care Provider [phone] RAJAN WOLFE Attending Unavailable JEAN-PIERRE REYES Primary Care Unavailable Dr. Harjeet Gutiérrez DO Primary Care Provider [phone] Dr. Alcides Goodrich MD Attending Provider Dr. Alcides Goodrich MD Emergency Provider Ivan Lr MD Emergency Provider [phone] Harjeet Gutiérrez Primary Care Unavailable Ivan Lr Attending Unavailable Alcides Goodrich Attending Unavailable Harjeet Gutiérrez Primary Care Unavailable CORI COLLIER Primary Care Physician MAGI HOUSTON DO Attending Unavailable HARJEET GUTIÉRREZ DO Primary Care Unavailable BALTES 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, CORI Primary Care Unavailabl e BALTES 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, CORI Attending Unavailabl e BALTES 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, CORI Attending Unavailabl e HARJEET GUTIÉRREZ DO Primary Care Unavailable BALTES 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, CORI Attending Unavailabl e BALTES 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, CORI Primary Care Unavailabl e BALTES 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, CORI Attending Unavailabl e BALTES 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, CORI Primary Care Unavailabl e Allergies Allergy Classification Reported Allergen(s) Allergy Type Date of Onset Reaction(s) Facility Opioid Agonists (1 source) Morphine Drug Allergy 5 Other: See Comments [facility] (1 source) zolpidem; Translations: [zolpidem] Drug Allergy Sleep walking disorder (disorder) [facility] Medications Current Medications Medication Drug [...] BID, # 360 tab(s), 0 Refill(s), Pharmacy: [facility]/pharmacy #[id number], 183, cm, 05/03/24 10:36:00 EDT, Height, kg, 05/03/24 10:36:00 EDT, Dosing Weight Start Date: 05/03/24 Stop Date: 08/01/24 Status: Ordered Quantity: 360.0 Unit: tab(s) Repeat number: 1 Start: 02-29-2024 busPIRone 5 mg oral tablet Dose : 5 mg = 1 tab(s), Oral, BID, PRN Anxiety, # 60 tab(s), 2 Refill(s), Pharmacy: [facility]/pharmacy #[id number], Anxiety disorder, 183, cm, 02/29/24 10:48:00 [...] 0 Refill(s), 04/01/24 1:11:00 PM EST, [id number], Right flank pain, 182.5, cm, 03/25/24 [...] QID, # 360 tab(s), 0 Refill(s), [id number], Diffuse amplified musculoskeletal pain syndrome, 182, [...] tablets., # 450 tab(s), 0 Refill(s), [id number], Chronic pain of right hip, 183.5, [...] Pain, # 60 tab(s), 0 Refill(s), [id number], 182, cm, 07/13/24 9:27:00 EDT, Height, kg, 07/13/24 9:27:00 EDT, Dosing Weight Start Date: 07/14/24 Stop Date: 08/13/24 Status: Ordered Quantity: 60.0 Unit: tab(s) Repeat number: 1 Start: 03-25-2024 End: 04-08-2024 meloxicam 7.5 mg oral tablet Dose : 7.5 mg = 1 tab(s), Oral, qDay, # 14 tab(s), 0 Refill(s), Pharmacy: [facility]/pharmacy #[id number], Right flank pain, 182.5, cm, 03/25/24 [...] qHS, # 30 tab(s), 1 Refill(s), Pharmacy: [facility]/pharmacy #[id number], Major depression, single episode, 183, cm, [...] qHS, # 90 tab(s), 0 Refill(s), Pharmacy: [facility]/pharmacy #[id number], Sleep disorder, circadian Insomnia, 183, cm, [...] Comment on above: Take 1 tablet by [facility] every 4 hours as needed. betamethasone 3 [...] Comment on above: Take 1 capsule by [facility] once daily. ondansetron 4 mg disintegrating oral [...] Basophil, Absolute 0.1 10 3/mcL Normal 0.0-0.3 [facility] Comment on above: Performed By: #### M ALBR #### [address] [address] Basophils/100 WBC (Bld) 0.8 % Normal 0.0-2.5 [facility] Comment on above: Performed By: #### M ALBR #### [id number] [place], [place] [address] Eosinophil, Absolute 0.1 10 3/mcL Normal 0.0-0.7 [facility] Comment on above: Performed By: #### M ALBR #### [address] [address] Eosinophils/100 WBC (Bld) 1.6 % Normal 0.0-6.0 [facility] Comment on above: Performed By: #### M ALBR #### [address] [address] Lymphocyte, Absolute 2.2 10 3/mcL Normal 0.9-4.3 [facility] Comment on above: Performed By: #### M ALBR #### [address] [address] Lymphocytes/100 WBC (Bld) 34.9 % Normal 20.0-40.0 [facility] Comment on above: Performed By: #### M ALBR #### [address] [address] Monocyte, Absolute 0.5 10 3/mcL Normal 0.1-1.4 [facility] Comment on above: Performed By: #### M ALBR #### [address] [address] Monocytes/100 WBC (Bld) 8.4 % Normal 2.0-13.0 [facility] Comment on above: Performed By: #### M ALBR #### [address] [address] Neutrophils/100 WBC (Bld) 54.3 % Normal 50.0-75.0 [facility] Comment on above: Performed By: #### M ALBR #### [address] [address] .GFRon 07-13-2024 Estimated Glomerular Filtration Rate 99 ml/min/1.73sqm Normal [facility] Comment on above: Result Comment: Stages of [...] results. Performed By: #### M ALBR #### [address] [address] .NEUABSon 07-13-2024 Neutrophil, Absolute 3.4 10 3/mcL Normal 2.3-8.1 [facility] Comment on above: Performed By: #### M ALBR #### [address] [address] CBCon 07-13-2024 Erythrocyte distribution width (RBC) [Ratio] 13.9 % Normal 11.5-15.5 [facility] Comment on above: Performed By: #### M ALBR #### [address] [address] Hematocrit (Bld) [Volume fraction] 45.3 % Normal 40.0-52.0 [facility] Comment on above: Performed By: #### M ALBR #### [address] [address] Hgb 15.4 G/dL Normal 13.0-17.5 [facility] Comment on above: Performed By: #### M ALBR #### [address] [address] MCH (RBC) [Entitic mass] 29.9 pg Normal 27.0-33.0 [facility] Comment on above: Performed By: #### M ALBR #### [address] [address] MCHC 33.9 G/dL Normal 32.0-36.0 [facility] Comment on above: Performed By: #### M ALBR #### [address] [address] MCV (RBC) [Entitic vol] 88.1 fL Normal 81.0-100.0 [facility] Comment on above: Performed By: #### M ALBR #### [address] [address] Platelet 171 10 3/mcL Normal 150-450 [facility] Comment on above: Performed By: #### M ALBR #### [address] [address] Platelet mean volume (Bld) [Entitic vol] 9.9 fL Normal 6.4-10.5 [facility] Comment on above: Performed By: #### M ALBR #### [address] [address] RBC 5.14 10 6/mcL Normal 4.50-6.00 [facility] Comment on above: Performed By: #### M ALBR #### [address] [address] WBC 6.3 10 3/mcL Normal 4.5-10.8 [facility] Comment on above: Performed By: #### M ALBR #### [address] [address] CMPon 07-13-2024 Albumin Level 4.6 G/dL Normal 3.5-5.0 [facility] Comment on above: Performed By: #### M ALBR #### [address] [address] Albumin/Globulin [Mass ratio] 1.3 {ratio} Normal 1.1-2.5 [facility] Comment on above: Performed By: #### M ALBR #### [address] [address] ALP [Catalytic activity/Vol] 112 U/L Normal 40-135 [facility] Comment on above: Performed By: #### M ALBR #### [address] [address] ALT [Catalytic activity/Vol] 27 U/L Normal 16-63 [facility] Comment on above: Performed By: #### M ALBR #### [address] [address] AST [Catalytic activity/Vol] 22 U/L Normal 10-40 [facility] Comment on above: Performed By: #### M ALBR #### [address] [address] Bili Total 1.3 mg/dL High 0.2-1.0 [facility] Comment on above: Result Comment: Use of this assay is not recommended for patients undergoing treatment with eltrombopag due to the potential for falsely elevated results. Performed By: #### M ALBR #### [address] [address] BUN/Creatinine Ratio 10 ratio Normal 7-27 [facility] Comment on above: Performed By: #### M ALBR #### [address] [address] Calcium [Mass/Vol] 9.6 mg/dL Normal 8.4-10.2 [facility] Comment on above: Performed By: #### M ALBR #### [address] [address] Chloride [Moles/Vol] 102 mmol/L Normal 98-107 [facility] Comment on above: Performed By: #### M ALBR #### [address] [address] CO2 [Moles/Vol] 31 mmol/L High 22-29 [facility] Comment on above: Performed By: #### M ALBR #### [address] [address] Creatinine [Mass/Vol] 0.98 mg/dL Normal 0.67-1.17 [facility] Comment on above: Performed By: #### M ALBR #### [address] [address] Electrolyte Balance 6.0 mEq/L Normal 4.0-15.0 [facility] Comment on above: Performed By: #### M ALBR #### [place] [id number] Globulin 3.6 G/dL Normal 2.7-4.4 [facility] Comment on above: Performed By: #### M ALBR #### [address] [address] Glucose [Mass/Vol] 95 mg/dL Normal 70-105 [facility] Comment on above: Performed By: #### M ALBR #### [address] [place], [place] [address] Potassium [Moles/Vol] 3.8 mmol/L Normal 3.5-5.1 [facility] Comment on above: Performed By: #### M ALBR #### [address] [address] Sodium [Moles/Vol] 139 mmol/L Normal 136-145 [facility] Comment on above: Performed By: #### M ALBR #### [address] [address] Total Protein 8.2 G/dL Normal 6.4-8.2 [facility] Comment on above: Performed By: #### M ALBR #### [address] [address] Urea nitrogen [Mass/Vol] 10 mg/dL Normal 7-18 [facility] Comment on above: Performed By: #### M ALBR #### [address] [address] LABORATORYOrdered By: Salome Herman on 07-13-2024 Albumin [...] 07-13-2024 Cholesterol [Mass/Vol] 172 mg/dL Normal 0-200 [facility] Comment on above: Result Comment: Chol esterol Reference Interval: Less than 200 Desirable 200-239 Borderline high risk 240 and above High risk Performed By: #### M ALBR #### [address] [place], [place] [address] Cholesterol in HDL [Mass/Vol] 54 mg/dL Normal 40-60 [facility] Comment on above: Performed By: #### M ALBR #### [address] [place], [place] [address] Cholesterol in LDL [Mass/Vol] 105 mg/dL Normal 0-130 [facility] Comment on above: Performed By: #### M ALBR #### [facility] [address] [place], [place] [address] Triglyceride [Mass/Vol] 67 mg/dL Normal 0-150 [facility] Comment on above: Result Comment: Trig lyceride Reference Interval: Less than 150 Normal 150-199 Borderline high risk 200-499 High risk 500 or higher Very high risk Performed By: #### M ALBR #### [address] [place], [place] [address] MALBRon 07-13-2024 U Creatinine 352.1 mg/dL High 40.0-278.0 [facility] Comment on above: Performed By: #### M ALBR #### [address] [address] U Microalb 15.7 mg/L Normal [facility] Comment on above: Performed By: #### M ALBR #### [address] [address] U Ratio Alb/Cre 4 mg/G Normal 0-30 [facility] Comment on above: Performed By: #### M ALBR #### [address] [address] Emergency Department Summary on 06-28-2024 Emergency Department Summary [facility] Medical Records Department [address] [place] [address] Emergency Department Summary 06/28/24 MR#: [id number] Acct: [id number] Name: JEYSON DAN Rep #: [id number] : 1980 43 From: Ivan Lr MD PCP: Dr. Harjeet Gutiérrez, DO Status:REG ER Location: ED HPI History of Present Illness Chief Complaint: Upper Extremity Injury Narrative Narrative: 43-year-old male, wgpjx-qghq-vgtothdo, presents with left shoulder pain worse with movement. 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 [facility] Medical History Wears glasses Wears dentures Anxiety [...] to do a drug test at the [facility]. X-rays were obtained of the left shoulder in 3 views and interpreted by myself independently. There is no evidence of acute fracture or dislocation. I reviewed the radiology report which confirms my independent interpretation. This point in time, I feel that he be discharged to follow-up immediately with the now clinic for further [facility] testing. He was placed in a sling for comfort but told to exercise his shoulder a few times a day to prevent adhesive capsulitis. He can take acor-yyv-hawqdyu medication such as ibuprofen or Tylenol as there is no evidence of fracture on his x-ray. He was given a note for limited use of his left upper extremity at work, and not to drive the company vehicle until cleared by [facility] provider. Disposition is discharged home in stable [...] this i (more content not included)... Normal [facility] Shoulder min 2 Viewson 06-28 Shoulder min [address] [facility] Imaging Services [address] [place] [address] Shoulder min 2 Views MR#: [id number] Acct: [id number] Name: JEYSON ADN TACHO Rep #: [id number] : 1980 M 43 From: Odalis Murray PCP: Dr. Harjeet Gutiérrez DO Status: REG ER Study: Shoulder min 2 Views Date of Exam: 06/28/24 Exam# [id number] Ordering Dr: Ivan Lr MD PROCEDURE: SHOULDER [...] out a currently occult fracture. Reading Location: [place] [address] CC: Dr. Ivan Lr MD; Dr. Harjeet Gutiérrez DO Machine Compositor: Signed Normal [facility] US SOFT TISSUE MASS CHEST WA LL/UPPER [...] 9:04:49 AM Ordering Provider: CORI LUO Normal [facility] CRPon 03-28-2024 C-Reactive Protein 0.2 mg/dL Normal 0.0-0.3 [facility] Comment on above: Performed By: #### M ALBR #### [address] [address] ESRon 03-28-2024 Erythrocyte Sed Rate 3 mm/hr Normal 0-15 [facility] Comment on above: Performed By: #### M ALBR #### [address] [address] LABORATORYOrdered By: SYSTEM SYSTEM on 03-28-2024 CRP [...] 03/28/2024 3:12:35 PM Ordering Provider: CORI Barakat [facility] .Auto Diffon 03-24-2024 Basophil, Absolute 0.0 10 3/mcL Normal 0.0-0.2 [facility] Comment on above: Performed By: #### L AC, CBC, MDW, ADIFF, ANEU, GFR, CMP #### [address] [address] Basophils/100 WBC (Bld) 0.8 % Normal 0.0-2.5 [facility] Comment on above: Performed By: #### L AC, CBC, MDW, ADIFF, ANEU, GFR, CMP #### [address] [address] Eosinophil, Absolute 0.3 10 3/mcL Normal 0.0-0.7 [facility] Comment on above: Performed By: #### L AC, CBC, MDW, ADIFF, ANEU, GFR, CMP #### [address] [address] Eosinophils/100 WBC (Bld) 4.2 % Normal 0.0-7.0 [facility] Comment on above: Performed By: #### L AC, CBC, MDW, ADIFF, ANEU, GFR, CMP #### [address] [address] Lymphocyte, Absolute 2.0 10 3/mcL Normal 0.9-4.3 [facility] Comment on above: Performed By: #### L AC, CBC, MDW, ADIFF, ANEU, GFR, CMP #### [address] [address] Lymphocytes/100 WBC (Bld) 32.6 % Normal 20.0-40.0 [facility] Comment on above: Performed By: #### L AC, CBC, MDW, ADIFF, ANEU, GFR, CMP #### [address] [address] Monocyte, Absolute 0.5 10 3/mcL Normal 0.1-1.4 [facility] Comment on above: Performed By: #### L AC, CBC, MDW, ADIFF, ANEU, GFR, CMP #### [address] [address] Monocytes/100 WBC (Bld) 7.9 % Normal 2.0-13.0 [facility] Comment on above: Performed By: #### L AC, CBC, MDW, ADIFF, ANEU, GFR, CMP #### [address] [address] Neutrophils/100 WBC (Bld) 54.5 % Normal 50.0-75.0 [facility] Comment on above: Performed By: #### L AC, CBC, MDW, ADIFF, ANEU, GFR, CMP #### [address] [address] .GFRon 03-24-2024 Estimated Glomerular Filtration Rate 110 ml/min/1.73sqm Normal [facility] Comment on above: Result Comment: Stages of [...] CBC, MDW, ADIFF, ANEU, GFR, CMP #### [place] [address] .MDWon 03-24-2024 Monocyte Distribution Width 14.38 Normal 0.00-20.00 [facility] Comment on above: Result Comment: For ED adult patients suspected of sepsis, MDW<=20.0 does not rule out sepsis or risk of sepsis Performed By: #### L AC, CBC, MDW, ADIFF, ANEU, GFR, CMP #### [place] [address] .NEUABSon 03-24-2024 Neutrophil, Absolute 3.4 10 3/mcL Normal 2.3-8.1 [facility] Comment on above: Performed By: #### L AC, CBC, MDW, ADIFF, ANEU, GFR, CMP #### [place] [address] CBCon 03-24-2024 Erythrocyte distribution width (RBC) [Ratio] 14.0 % Normal 11.5-15.5 [facility] Comment on above: Performed By: #### L AC, CBC, MDW, ADIFF, ANEU, GFR, CMP #### [place] [address] Hematocrit (Bld) [Volume fraction] 47.4 % Normal 40.0-52.0 [facility] Comment on above: Performed By: #### L AC, CBC, MDW, ADIFF, ANEU, GFR, CMP #### [address] [address] Hgb 16.1 G/dL Normal 13.0-17.5 [facility] Comment on above: Performed By: #### L AC, CBC, MDW, ADIFF, ANEU, GFR, CMP #### [address] [address] MCH (RBC) [Entitic mass] 29.0 pg Normal 27.0-33.0 [facility] Comment on above: Performed By: #### L AC, CBC, MDW, ADIFF, ANEU, GFR, CMP #### [place] [address] MCHC 34.0 G/dL Normal 32.0-36.0 [facility] Comment on above: Performed By: #### L AC, CBC, MDW, ADIFF, ANEU, GFR, CMP #### [place] [address] MCV (RBC) [Entitic vol] 85.2 fL Normal 81.0-100.0 [facility] Comment on above: Performed By: #### L AC, CBC, MDW, ADIFF, ANEU, GFR, CMP #### [address] [address] Platelet 193 10 3/mcL Normal 150-450 [facility] Comment on above: Performed By: #### L AC, CBC, MDW, ADIFF, ANEU, GFR, CMP #### [address] [address] Platelet mean volume (Bld) [Entitic vol] 9.7 fL Normal 6.4-10.5 [facility] Comment on above: Performed By: #### L AC, CBC, MDW, ADIFF, ANEU, GFR, CMP #### [place] [id number] RBC 5.56 10 6/mcL Normal 4.50-6.00 [facility] Comment on above: Performed By: #### L AC, CBC, MDW, ADIFF, ANEU, GFR, CMP #### [address] [address] WBC 6.2 10 3/mcL Normal 4.5-10.8 [facility] Comment on above: Performed By: #### L AC, CBC, MDW, ADIFF, ANEU, GFR, CMP #### [address] [address] CMPon 03-24-2024 Albumin Level 4.5 G/dL Normal 3.5-5.0 [facility] Comment on above: Performed By: #### L AC, CBC, MDW, ADIFF, ANEU, GFR, CMP #### [address] [address] Albumin/Globulin [Mass ratio] 1.3 {ratio} Normal 1.1-2.5 [facility] Comment on above: Performed By: #### L AC, CBC, MDW, ADIFF, ANEU, GFR, CMP #### [address] [address] ALP [Catalytic activity/Vol] 117 U/L Normal 40-135 [facility] Comment on above: Performed By: #### L AC, CBC, MDW, ADIFF, ANEU, GFR, CMP #### [address] [address] ALT [Catalytic activity/Vol] 36 U/L Normal 16-63 [facility] Comment on above: Performed By: #### L AC, CBC, MDW, ADIFF, ANEU, GFR, CMP #### [address] [address] AST [Catalytic activity/Vol] 22 U/L Normal 10-40 [facility] Comment on above: Performed By: #### L AC, CBC, MDW, ADIFF, ANEU, GFR, CMP #### [address] [address] Bili Total 0.5 mg/dL Normal 0.2-1.0 [facility] Comment on above: Result Comment: Use of this assay is not recommended for patients undergoing treatment with eltrombopag due to the potential for falsely elevated results. Performed By: #### L AC, CBC, MDW, ADIFF, ANEU, GFR, CMP #### [address] [address] BUN/Creatinine Ratio 7 ratio Normal 7-27 [facility] Comment on above: Performed By: #### L AC, CBC, MDW, ADIFF, ANEU, GFR, CMP #### [address] [address] Calcium [Mass/Vol] 9.9 mg/dL Normal 8.4-10.2 [facility] Comment on above: Performed By: #### L AC, CBC, MDW, ADIFF, ANEU, GFR, CMP #### [place] [address] Chloride [Moles/Vol] 104 mmol/L Normal 98-107 [facility] Comment on above: Performed By: #### L AC, CBC, MDW, ADIFF, ANEU, GFR, CMP #### [place] [address] CO2 [Moles/Vol] 28 mmol/L Normal 22-29 [facility] Comment on above: Performed By: #### L AC, CBC, MDW, ADIFF, ANEU, GFR, CMP #### [place] [address] Creatinine [Mass/Vol] 0.87 mg/dL Normal 0.70-1.30 [facility] Comment on above: Result Comment: Test ing performed on [employer] Dimension EXL analyzer using a modified kinetic Bertrand technique. Performed By: #### L AC, CBC, MDW, ADIFF, ANEU, GFR, CMP #### [place] [address] Electrolyte Balance 9.0 mEq/L Normal 4.0-15.0 [facility] Comment on above: Performed By: #### L AC, CBC, MDW, ADIFF, ANEU, GFR, CMP #### [place] [address] Globulin 3.4 G/dL Normal 1.5-3.8 [facility] Comment on above: Performed By: #### L AC, CBC, MDW, ADIFF, ANEU, GFR, CMP #### [address] [address] Glucose [Mass/Vol] 97 mg/dL Normal 70-105 [facility] Comment on above: Performed By: #### L AC, CBC, MDW, ADIFF, ANEU, GFR, CMP #### [address] [address] Potassium [Moles/Vol] 3.8 mmol/L Normal 3.5-5.1 [facility] Comment on above: Performed By: #### L AC, CBC, MDW, ADIFF, ANEU, GFR, CMP #### [address] [address] Sodium [Moles/Vol] 141 mmol/L Normal 136-145 [facility] Comment on above: Performed By: #### L AC, CBC, MDW, ADIFF, ANEU, GFR, CMP #### [address] [address] Total Protein 7.9 G/dL Normal 6.4-8.2 [facility] Comment on above: Performed By: #### L AC, CBC, MDW, ADIFF, ANEU, GFR, CMP #### [address] [address] Urea nitrogen [Mass/Vol] 6 mg/dL Low 7-18 [facility] Comment on above: Performed By: #### L AC, CBC, MDW, ADIFF, ANEU, GFR, CMP #### [address] [address] [address] ABD/PELVIS W/ IV CONTRAST ONLYon 03-24-2024 [...] 03/24/2024 2:30:40 PM Ordering Provider: BOOM Barakat [facility] LABORATORYOrdered By: SYSTEM SYSTEM on 03-24-2024 Albumin [...] above: Interpretive Data: T esting performed on [employer] Dimension EXL analyzer using a modified kinetic [...] Lactic Acid Lvl 1.6 mmol/L Normal 0.4-2.0 [facility] Comment on above: Performed By: #### L AC, CBC, MDW, ADIFF, ANEU, GFR, CMP #### [facility] [address] [place], [place] [address] No Panel Informationon 03-24 Microscopic examination of blood, culture Culture has been received in lab and is no growth to date. Routine cultures are held for 5 days. [facility] STREPAon 03-24-2024 Group A Strep PCR Not detected Normal Not Detected [facility] Comment on above: Performed By: #### S PAULPA #### [place] [id number] [place], [place] [address] Group A Strep PCR Int Normal [facility] Comment on above: Result Comment: Nega tive [...] Interp Performed By: #### S ALICIA #### [place] [id number] [place], [place] [address] Abdomen/Pelvis without Conto n 03-21-2024 Abdomen/Pelvis without Cont [facility] Imaging Services [address] [place], [place] [id number] Abdomen/Pelvis without Cont MR#: [id number] Acct: [id number] Name: JEYSON DAN Rep #: [id number] : 1980 M 43 From: Panda Tian MD PCP: Dr. Harjeet Gutiérrez, DO Status: REG ER Study: Abdomen/Pelvis without Cont Date of Exam: 05/10 Exam# [id number] Ordering Dr: Gerard Delacruz ASSISTANT MANAGER QUALITY MANAGEMENT-C EXAM: CT Abdomen and Pelvis Without Intravenous [...] 3. Umbilical hernia containing fat. Reading Location: [facility] CC: CHETAN Delacruz; Dr. Harjeet Gutiérrez DO Machine Compositor: Signed Normal [facility] Absolute lymphocyte countOrd ered By: Gerard Delacruz on 03-21-2024 Lymphocytes Auto (Unsp spec) [#/Vol] 2.57 10*3/uL 0.83-4.51 [facility] Absolute neutrophil countOrd ered By: Gerard Delacruz on 03-21-2024 Neutrophils (Bld) [#/Vol] 3.2 10*3/uL 2.0-7.7 [facility] Albumin to globulin ratioOrd ered By: Gerard Delacruz on 03-21-2024 Albumin/Globulin [Mass ratio] 1.2 {ratio} 0.9-2.4 [facility] Automated lymphocyte count a s percentage of total leukocytesOrdered By: Gerard Delacruz on 03-21-2024 Lymphocytes/100 WBC Auto (Unsp spec) 38.9 % 19-41 [facility] Basophil percentageOrdered B y: Gerard Delacruz on 03-21-2024 Basophils/100 WBC (Bld) 0.9 % 0-[address] [facility] Bilirubin Test strip Ql (U)O rdered By: Gerard Cruzwander on 03-21-2024 Bilirubin Ql (U) Negative Negative [facility] Bilirubin, totalOrdered By: Gerard Delacruz on 03-21-2024 Bilirubin [Mass/Vol] 0.90 mg/dL 0.20-1.00 [facility] Comment on above: For patients on eltr ombopag therapy, use of Dimension [place] TBIL is not recommended. Blood urea nitrogen (BUN)/cr eatinine ratioOrdered By: Gerard Delacruz on 03-21-2024 Urea nitrogen/Creatinine [Mass ratio] 14.4 mg/mg 10-20 [facility] CBC W/Diff, Automatedon Absolute Lymph 2.57 X10 3/uL Normal 0.83-4.51 [facility] Comment on above: Performed By: #### L 100.0100, L500.4050, L501.2450 #### [facility] Laboratory [address] [place], [address] Absolute Neut 3.2 X10 3/uL Normal 2.0-7.7 [facility] Comment on above: Performed By: #### L 100.0100, L500.4050, L501.2450 #### [facility] Laboratory [address] [place], [address] Basophils/100 WBC (Bld) 0.9 % Normal 0-[address] [facility] Comment on above: Performed By: #### L 100.0100, L500.4050, L501.2450 #### [facility] Laboratory [address] [place], [address] Eosinophils/100 WBC (Bld) 2.3 % Normal 0-5 [facility] Comment on above: Performed By: #### L 100.0100, L500.4050, L501.2450 #### [facility] Laboratory [address] [place], [address] Erythrocyte distribution width (RBC) [Ratio] 13.2 % Normal 11.6-14.6 [facility] Comment on above: Performed By: #### L 100.0100, L500.4050, L501.2450 #### [facility] Laboratory [address] [place], [address] Hematocrit (Bld) [Volume fraction] 46.9 % Normal 40-54 [facility] Comment on above: Performed By: #### L 100.0100, L500.4050, L501.2450 #### [facility] Laboratory [address] [place], [address] Hemoglobin (Bld) [Mass/Vol] 15.9 g/dL Normal 13.0-16.5 [facility] Comment on above: Performed By: #### L 100.0100, L500.4050, L501.2450 #### [facility] Laboratory [address] [place], [address] IG% 0.200 Normal 0.0-0.9 [facility] Comment on above: Result Comment: IG% - Immature Granulocytes (promyelocytes, myelocytes and metamyelocytes) > 1% indicates that a LEFT SHIFT is Present. Performed By: #### L 100.0100, L500.4050, L501.2450 #### [facility] Laboratory [address] [place], [address] Lymphocytes/100 WBC (Bld) 38.9 % Normal 19-41 [facility] Comment on above: Performed By: #### L 100.0100, L500.4050, L501.2450 #### [facility] Laboratory [address] [place], [address] MCH (RBC) [Entitic mass] 28.6 pg Normal 27.0-32.0 [facility] Comment on above: Performed By: #### L 100.0100, L500.4050, L501.2450 #### [facility] Laboratory [address] [place], [address] MCHC (RBC) [Mass/Vol] 33.9 g/dL Normal 32-36 [facility] Comment on above: Performed By: #### L 100.0100, L500.4050, L501.2450 #### [facility] Laboratory [address] [place], [address] MCV (RBC) [Entitic vol] 84.5 fL Normal 80-94 [facility] Comment on above: Performed By: #### L 100.0100, L500.4050, L501.2450 #### [facility] Laboratory [address] [place], [address] Monocytes/100 WBC (Bld) 9.7 % Normal 0-10 [facility] Comment on above: Performed By: #### L 100.0100, L500.4050, L501.2450 #### [facility] Laboratory [address] [place], [address] Neutrophils/100 WBC (Bld) 48.0 % Normal 47-70 [facility] Comment on above: Performed By: #### L 100.0100, L500.4050, L501.2450 #### [facility] Laboratory [address] [place], [address] Nucleated RBC (Bld) [#/Vol] 0 10*3/uL Normal 0-5 [facility] Comment on above: Performed By: #### L 100.0100, L500.4050, L501.2450 #### [facility] Laboratory [address] [place], [address] Platelet mean volume (Bld) [Entitic vol] 11.3 fL Normal 6.2-12.0 [facility] Comment on above: Performed By: #### L 100.0100, L500.4050, L501.2450 #### [facility] Laboratory [address] [place], [address] Platelets (Bld) [#/Vol] 230 10*3/uL Normal 150-450 [facility] Comment on above: Performed By: #### L 100.0100, L500.4050, L501.2450 #### [facility] Laboratory [address] [place], [address] RBC (Bld) [#/Vol] 5.55 10*6/uL Normal 4.6-6.2 [facility] Comment on above: Performed By: #### L 100.0100, L500.4050, L501.2450 #### [facility] Laboratory [address] [place], [address] RDW SD 40.8 fl Normal 35.1-43.9 [facility] Comment on above: Performed By: #### L 100.0100, L500.4050, L501.2450 #### [facility] Laboratory [address] [place], [address] WBC (Bld) [#/Vol] 6.6 10*3/uL Normal 4.4-11.0 [facility] Comment on above: Performed By: #### L 100.0100, L500.4050, L501.2450 #### [facility] Laboratory [address] [place], [address] Carbon dioxide measurementOr dered By: Gerard Delacruz on 03-21-2024 CO2 [Moles/Vol] 27.0 mmol/L 21.0-32.0 [facility] Chloride measurementOrdered By: Gerard Delacruz on 03-21-2024 Chloride [Moles/Vol] 106 mmol/L 98-107 [facility] Comprehensive Metabolic Prof ilon 03-21-2024 Albumin [Mass/Vol] 4.4 g/dL Normal 3.2-5.0 [facility] Comment on above: Performed By: #### L 100.0100, L500.4050, L501.2450 #### [facility] Laboratory [address] [place], [address] Albumin/Globulin [Mass ratio] 1.2 {ratio} Normal 0.9-2.4 [facility] Comment on above: Performed By: #### L 100.0100, L500.4050, L501.2450 #### [facility] Laboratory [address] [place], [address] ALK P 107 U/L Normal 45-117 [facility] Comment on above: Performed By: #### L 100.0100, L500.4050, L501.2450 #### [facility] Laboratory [address] [place], [address] ALT [Catalytic activity/Vol] 33 U/L Normal 16-61 [facility] Comment on above: Performed By: #### L 100.0100, L500.4050, L501.2450 #### [facility] Laboratory [address] [place], [address] AST [Catalytic activity/Vol] 14 U/L Low 15-37 [facility] Comment on above: Performed By: #### L 100.0100, L500.4050, L501.2450 #### [facility] Laboratory [address] [place], [address] Bilirubin [Mass/Vol] 0.90 mg/dL Normal 0.20-1.00 [facility] Comment on above: Result Comment: For patients on eltrombopag therapy, use of Dimension [place] TBIL is not recommended. Performed By: #### L 100.0100, L500.4050, L501.2450 #### [facility] Laboratory [address] [place], [address] BUN/CRE 14.4 RATIO Normal 10-20 [facility] Comment on above: Performed By: #### L 100.0100, L500.4050, L501.2450 #### [facility] Laboratory [address] [place], [address] CA,Total 9.6 mg/dL Normal 8.5-10.1 [facility] Comment on above: Performed By: #### L 100.0100, L500.4050, L501.2450 #### [facility] Laboratory [address] [place], [address] Chloride [Moles/Vol] 106 mmol/L Normal 98-107 [facility] Comment on above: Performed By: #### L 100.0100, L500.4050, L501.2450 #### [facility] Laboratory [address] [place], [address] CO2 [Moles/Vol] 27.0 mmol/L Normal 21.0-32.0 [facility] Comment on above: Performed By: #### L 100.0100, L500.4050, L501.2450 #### [facility] Laboratory [address] [place], [address] Creatinine [Mass/Vol] 0.83 mg/dL Normal 0.70-1.30 [facility] Comment on above: Result Comment: The validity of the calculated GFR GFRAA in patients over 70 years has not been determined. Clinical correlation is essential. Performed By: #### L 100.0100, L500.4050, L501.2450 #### [facility] Laboratory [address] [place], [address] ECRCL 144.67 ml/min Normal [facility] Comment on above: Performed By: #### L 100.0100, L500.4050, L501.2450 #### [facility] Laboratory [address] [place], [address] EST GFR - AA 130 mL/min Normal >60 [facility] Comment on above: Result Comment: Afri can Nauruan GFR Calc Performed By: #### L 100.0100, L500.4050, L501.2450 #### [facility] Laboratory [address] [place], [address] GAP 6 Normal 5-15 [facility] Comment on above: Performed By: #### L 100.0100, L500.4050, L501.2450 #### [facility] Laboratory [address] [place], [address] GFR/1.73 sq M.predicted among non-blacks MDRD (S/P/Bld) [Vol rate/Area] 107 mL/min/{1.73_m2} Normal >60 [facility] Comment on above: Result Comment: Non- GFR Calc Performed By: #### L 100.0100, L500.4050, L501.2450 #### [facility] Laboratory [address] [place], [address] Globulin (S) [Mass/Vol] 3.8 g/dL Normal 2.2-4.2 [facility] Comment on above: Performed By: #### L 100.0100, L500.4050, L501.2450 #### [facility] Laboratory [address] [place], [address] Glucose [Mass/Vol] 99 mg/dL Normal 74-106 [facility] Comment on above: Performed By: #### L 100.0100, L500.4050, L501.2450 #### [facility] Laboratory [address] [place], [address] Potassium [Moles/Vol] 4.0 mmol/L Normal 3.5-5.1 [facility] Comment on above: Performed By: #### L 100.0100, L500.4050, L501.2450 #### [facility] Laboratory [address] [place], [address] Sodium [Moles/Vol] 139 mmol/L Normal 136-145 [facility] Comment on above: Performed By: #### L 100.0100, L500.4050, L501.2450 #### [facility] Laboratory [address] [place], [address] T PROT 8.2 g/dL Normal 6.4-8.2 [facility] Comment on above: Performed By: #### L 100.0100, L500.4050, L501.2450 #### [facility] Laboratory [address] [place], [address] Urea nitrogen [Mass/Vol] 12 mg/dL Normal 7-18 [facility] Comment on above: Performed By: #### L 100.0100, L500.4050, L501.2450 #### [facility] Laboratory [address] [place], [address] Emergency Department Summary on 03-21-2024 Emergency Department Summary [facility] Medical Records Department [address] [place] [address] Emergency Department Summary 03/21/24 MR#: [id number] Acct: [id number] Name: JEYSON DAN Rep #: [id number] : 1980 43 From: Alcides Goodrich MD [...] chills, denies any specific nausea or vomiting. [facility] Medical History Anxiety Arthritis Chronic pain History [...] Mean 142 (more content not included)... Normal [facility] Eosinophil percentageOrdered By: Gerard Delacruz on 03-21-2024 Eosinophils/100 WBC (Bld) 2.3 % 0-5 [facility] Erythrocyte distribution wid th ratioOrdered By: Gerard Delacruz on 03-21-2024 Erythrocyte distribution width (RBC) [Ratio] 13.2 % 11.6-14.6 [facility] Erythrocyte distribution wid th standard deviationOrdered By: Gerard Delacruz on 03-21-2024 Erythrocyte distribution width (RBC) [Ratio] 40.8 fl 35.1-43.9 [facility] Glomerular filtration rate ( GFR) estimationOrdered By: Gerard Delacruz on 03-21-2024 GFR/1.73 sq M.predicted among non-blacks MDRD (S/P/Bld) [Vol rate/Area] 107 mL/min/{1.73_m2} >60 [facility] Comment on above: Non- GFR Calc Glucose measurementOrdered B y: Gerard Delacruz on 03-21-2024 Glucose [Mass/Vol] 99 mg/dL 74-106 [facility] Hematocrit Auto (Bld) [Volum e fraction]Ordered By: Gerard Delacruz on 03-21-2024 Hematocrit (Bld) [Volume fraction] 46.9 % 40-54 [facility] Hemoglobin measurementOrdere d By: Gerard Delacruz on 03-21-2024 Hemoglobin (Bld) [Mass/Vol] 15.9 g/dL 13.0-16.5 [facility] Immature granulocytes/100 WB C Auto (Bld)Ordered By: Gerard Delacruz on 03-21-2024 Immature granulocytes/100 WBC (Bld) 0.200 % 0.0-0.9 [facility] Comment on above: IG% - Immature Granu locytes (promyelocytes, myelocytes and metamyelocytes) > 1% indicates that a LEFT SHIFT is Present. Ketones Test strip Ql (U)Ord ered By: Gerard Delacruz on 03-21-2024 Ketones Ql (U) Negative Negative [facility] Laboratory - Chemistry and C hemistry - challengeOrdered By: Gerard Delacruz on 03-21-2024 AST [Catalytic activity/Vol] 14 U/L Low 15-37 [facility] Lipaseon 03-21-2024 Lipase [Catalytic activity/Vol] 54 U/L Normal 13-75 [facility] Comment on above: Result Comment: Karolina hutchinson note: LIPASE revised reference range effective 22. New Lipase methodology. Expected to produce lower values than the previous assay method. NEW Reference Range: 13 - 75 U/L Performed By: #### L 100.0100, L500.4050, L501.2450 #### [facility] Laboratory [address] [place], [address] Lipase measurementOrdered By : Gerard Delacruz on 03-21-2024 Lipase [Catalytic activity/Vol] 54 U/L 13-75 [facility] Comment on above: Please note:LIPASE r evised reference range effective 22. New Lipase methodology. Expected to produce lower values than the previous assay method. NEW Reference Range: 13 - 75 U/L MCV (mean corpuscular volume ) determinationOrdered By: Gerard Delacruz on 03-21-2024 MCV (RBC) [Entitic vol] 84.5 fL 80-[address] [facility] Mean corpuscular hemoglobin (MCH) determinationOrdered By: Gerard Delacruz on 03-21-2024 MCH (RBC) [Entitic mass] 28.6 pg 27.0-32.0 [facility] Mean corpuscular hemoglobin concentration (MCHC) determinationOrdered By: Gerard Delacruz on 03-21-2024 MCHC (RBC) [Mass/Vol] 33.9 g/dL 32-36 [facility] Mean platelet volume determi nationOrdered By: Gerard Delacruz on 03-21-2024 Platelet mean volume (Bld) [Entitic vol] 11.3 fL 6.2-12.0 [facility] Microscopic analysis of urin e for red blood cells (RBC)Ordered By: Gerard Delacruz on 03-21-2024 Microscopic analysis of urine for red blood cells (RBC) 0 SEEN /hpf 0-5 [facility] Monocyte percentageOrdered B y: Gerard Delacruz on 03-21-2024 Monocytes/100 WBC (Bld) 9.7 % 0-[address] [facility] Mucus LM Ql (Urine sed)Order ed By: Gerard Delacruz on 03-21-2024 Mucus Ql (Urine sed) 0 SEEN /hpf [facility] Neutrophil percentageOrdered By: Gerard Delacruz on 03-21-2024 Neutrophils/100 WBC (Bld) 48.0 % 47-70 [facility] Nitrite Test strip Ql (U)Ord ered By: Gerard Delacruz on 03-21-2024 Nitrite Ql (U) Negative Negative [facility] Nucleated red blood cell per centageOrdered By: Gerard Delacruz on 03-21-2024 Nucleated RBC/100 WBC (Bld) [Ratio] 0 % 0-5 [facility] Platelet countOrdered By: Kwesi Delacruz on 03-21-2024 Platelets (Bld) [#/Vol] 230 10*3/uL 150-450 [facility] Potassium measurementOrdered By: Gerard Delacruz on 03-21-2024 Potassium [Moles/Vol] 4.0 mmol/L 3.5-5.1 [facility] Protein Test strip Ql (U)Ord ered By: Gerard Delacruz on 03-21-2024 Protein Ql (U) Negative Negative [facility] RBC Auto (Bld) [#/Vol]Ordere d By: Gerard Delacruz on 03-21-2024 RBC (Bld) [#/Vol] 5.55 10*6/uL 4.6-6.2 [facility] Serum anion gap measurementO rdered By: Gerard Delacruz on 03-21-2024 Anion gap [Moles/Vol] 6 mmol/L 5-15 [facility] Serum globulin measurementOr dered By: Gerard Delacruz on 03-21-2024 Globulin (S) [Mass/Vol] 3.8 g/dL 2.2-4.2 [facility] Serum or plasma alanine gracia otransferase (ALT) measurementOrdered By: Gerard Delacruz on 03-21-2024 ALT [Catalytic activity/Vol] 33 U/L 16-61 [facility] Serum or plasma albumin gela urement (mass/volume)Ordered By: Gerard Delacruz on 03-21-2024 Albumin [Mass/Vol] 4.4 g/dL 3.2-5.0 [facility] Serum or plasma alkaline alex sphatase measurementOrdered By: Gerard Delacruz on 03-21-2024 ALP [Catalytic activity/Vol] 107 U/L 45-117 [facility] Serum or plasma calcium gela urement (mass/volume)Ordered By: Gerard Delacruz on 03-21-2024 Calcium [Mass/Vol] 9.6 mg/dL 8.5-10.1 [facility] Serum or plasma creatinine m easurement (mass/volume)Ordered By: Gerard Delacruz on 03-21-2024 Creatinine [Mass/Vol] 0.83 mg/dL 0.70-1.30 [facility] Comment on above: The validity of the calculated GFR & GFRAA in patients over 70 years has not been determined. Clinical correlation is essential. Serum or plasma urea nitroge n measurement (mass/volume)Ordered By: Gerard Delacruz on 03-21-2024 Urea nitrogen [Mass/Vol] 12 mg/dL 7-18 [facility] Sodium levelOrdered By: Gerard Delacruz on 03-21-2024 Sodium [Moles/Vol] 139 mmol/L 136-145 [facility] Squamous epithelial cells de tection in urine sediment by light microscopyOrdered By: Gerard Delacruz on 03-21-2024 Epithelial cells.squamous LM Ql (Urine sed) 0 SEEN /hpf 0-5 [facility] Total proteinOrdered By: Anika Delacruz on 03-21-2024 Protein [Mass/Vol] 8.2 g/dL 6.4-8.2 [facility] Urinalysis, Completeon 03-21 BACTERIA 0 SEEN Normal None Seen [facility] Comment on above: Order Comment: MIRIAN CTOR TO SPECIFY Performed By: #### L 400.0001 #### [facility] Laboratory [address] [place], [address] EPI,SQUAMOUS 0 SEEN Normal [address] [place] [address] Comment on above: Order Comment: MIRIAN CTOR TO SPECIFY Performed By: #### L 400.0001 #### [facility] [address] [place], [address] Mucus Ql (Urine sed) 0 SEEN Normal [facility] Comment on above: Order Comment: MIRIAN CTOR TO SPECIFY Performed By: #### L 400.0001 #### [facility] Laboratory [address] [place], [address] RBC 0 SEEN Normal 0-5 [facility] Comment on above: Order Comment: MIRIAN CTOR TO SPECIFY Performed By: #### L 400.0001 #### [facility] Laboratory [address] [place], [address] WBC 0 SEEN Normal 0-5 [facility] Comment on above: Order Comment: MIRIAN CTOR TO SPECIFY Performed By: #### L 400.0001 #### [facility] Laboratory [address] [place], [address] Urine clarityOrdered By: Anika Delacruz on 03-21-2024 Clarity (U) Clear Clear [facility] Urine color determinationOrd ered By: Gerard Delacruz on 03-21-2024 Color (U) Straw Yellow [facility] Urine glucose detectionOrder ed By: Gerard Delacruz on 03-21-2024 Glucose Ql (U) Normal mg/dl Normal [facility] Urine leukocyte esterase det ection by dipstickOrdered By: Gerard Delacruz on 03-21-2024 Leukocyte esterase Test strip Ql (U) Negative Negative [facility] Urine pHOrdered By: Gerard villalobos on 03-21-2024 pH (U) 7.0 [pH] 5.0 - 8.0 [facility] Urine sediment bacteria coun t by microscopy (number/high power field)Ordered By: Gerard Delacruz on 03-21-2024 Bacteria LM.HPF (Urine sed) [#/Area] 0 /[HPF] None Seen [facility] Urine specific gravity measu rementOrdered By: Gerard Delacruz on 03-21-2024 Specific gravity (U) [Rel density] 1.005 1.002-1.030 [facility] Urine urobilinogen measureme ntOrdered By: Gerard Delacruz on 03-21-2024 Urobilinogen Ql (U) Normal mg/dl Normal [facility] White blood cell (WBC) count Ordered By: Gerard Delacruz on 03-21-2024 WBC (Bld) [#/Vol] 6.6 10*3/uL 4.4-11.0 [facility] White blood cell countOrdere d By: Gerard Delacruz on 03-21-2024 White blood cell count 0 SEEN /hpf 0-[address] [facility] Office Visiton 12-23-2022 Follow-up visit [id number] Jeyson Dan 1980 M Date Provider Department Center 12/23/2022 [facility] None No family history on file Level of Service:66665 [place] OFFICE/OUTPATIENT NEW LOW MDM 30-44 MINUTES (25) Reason for Visit and Comments: New Patient [542] - Left Shoulder Normal [facility] PATINSon 12-23-2022 PATINS ADDITIONAL INFORMATION ([email or web address]) SHOULDER: [email or web address] Normal [facility] Progress Noteon 12-23-2022 Progress Note [facility] [facility] [address] [facility] [address] Dept: [phone] Dept Chief Complaint Patient presents with New [...] devices: none Prior surgery: no 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 Follow up if symptoms worsen or fail to improve. Rajan Wolfe MD 12/23/2022 9:36 AM Please note that portions of this note may have been completed with voice recognition software. Documentation reviewed prior to signing but minor errors in centrifugal chiller technician may have occurred. Normal [facility] US AXILLA LEFTon 11-14-2022 US AXILLA [...] Sign Date: 11/14/2022 3:13:30 PM [facility] MRI Low Ext Joint w/ Contras t Righton 03-31-2017 MRI Low Ext Joint w/ Contrast Right Patient Name: JEYSON DAN MRI Exam Date/Time 03/31/2017 10:55:54 EST Exam MRI Low Ext Joint w/ Contrast Right Ordering Physician MD DIANE, ARON GREER Accession Number [id number] CPT4 Codes 04194 () Reason For Exam Pain Report Examination: MRI arthrogram right hip Clinical Indication: Hip pain concern for labral tear Comparison: None Findings: Multiplanar multisequence high field strength MRI images were obtained through the right hip after prior intra-articular contrast. Small jrfbg-si-mqde axial, coronal, and sagittal along with high-resolution [...] at the anterior superior junction. There is aekt-rx-cubukktl diffuse articular cartilage thinning. There is a [...] Transcribed Date and Time: 03/31/2017 12:25 Normal [facility] RF Arthrogram Aspir Inj Ezekiel Jt Righton 03-31-2017 RF Arthrogram Aspir Inj Ezekiel Jt Right Patient Name: JEYSON DAN Fluoroscopy Exam Date/Time 03/31/2017 10:01:39 EST Exam RF Arthrogram Aspir Inj Ezekiel Jt Right Ordering Physician SADIQ KOO RUSSELL Accession Number [id number] [facility] Codes 38305 (), 44825 (RF FLUORO GUIDANCE NEEDLE PLACEMENT) Reason For [...] J Transcribed Date and Time: 03/31/2017 10:22 [facility] Vital Signs Date Time Vital Sign Value Performing Clinician Facility 06-28-2024 09:50-0400 Body temperature 98 [degF] Dr. Harjeet Gutiérrez DO Work Phone: [facility] 06-28-2024 09:50-0400 Diastolic blood pressure 80 mm[Hg] Dr. Harjeet Gutiérrez DO Work Phone: [facility] 06-28-2024 09:50-0400 Heart rate 88 /min Dr. Harjeet Gutiérrez DO Work Phone: [facility] 06-28-2024 09:50-0400 Respiratory rate 20 /min Dr. Harjeet Gutiérrez DO Work Phone: [facility] 06-28-2024 09:50-0400 SaO2% (BldA) [Mass fraction] 97 % Dr. Harjeet Gutiérrez DO Work Phone: [facility] 06-28-2024 09:50-0400 Systolic blood pressure 142 mm[Hg] Dr. Harjeet Gutiérrez DO Work Phone: [facility] 06-28-2024 08:08-0400 Body height 185.[address] Harjeet Gutiérrez DO Work Phone: [facility] 06-28-2024 08:08-0400 Body mass index (BMI) [Ratio] 29.5 kg/m2 Dr. Harjeet Gutiérrez DO Work Phone: [facility] 06-28-2024 08:08-0400 Body weight 101.[address] Harjeet Gutiérrez DO Work Phone: [facility] 03-24-2024 15:18-0500 Diastolic Blood Pressure Non-Invasive 90 mm[Hg] NIDAL CHOUJAA DO [facility] 03-24-2024 15:18-0500 Heart rate 59 /min NIDAL CHOUJAA DO [facility] 03-24-2024 15:18-0500 Respiratory rate 16 /min NIDAL CHOUJAA DO [facility] 03-24-2024 15:18-0500 Systolic Blood Pressure Non-Invasive 134 mm[Hg] NIDAL CHOUJAA DO [facility] 03-24-2024 14:03-0500 Diastolic Blood Pressure Non-Invasive 91 mm[Hg] NIDAL CHOUJAA DO [facility] 03-24-2024 14:03-0500 Heart rate 61 /min NIDAL CHOUJAA DO [facility] 03-24-2024 14:03-0500 Respiratory rate 18 /min NIDAL CHOUJAA DO [facility] 03-24-2024 14:03-0500 Systolic Blood Pressure Non-Invasive 146 mm[Hg] NIDAL CHOUJAA DO [facility] 03-24-2024 12:50-0500 Diastolic Blood Pressure Non-Invasive 106 mm[Hg] NIDAL CHOUJAA DO [facility] 03-24-2024 12:50-0500 Systolic Blood Pressure Non-Invasive 153 mm[Hg] NIDAL CHOUJAA DO [facility] 03-24-2024 12:19-0500 Body height 185.4 cm NIDAL CHOUJAA DO [facility] 03-24-2024 12:19-0500 Body temperature 97.7 [degF] NIDAL CHOUJAA DO [facility] 03-24-2024 12:19-0500 Body weight 100 kg NIDAL CHOUJAA DO [facility] 03-24-2024 12:19-0500 Heart rate 80 /min NIDAL CHOUJAA DO [facility] 03-24-2024 12:19-0500 Respiratory rate 18 /min NIDAL CHOUJAA DO [facility] 03-21-2024 12:34-0500 Body temperature 97.7 [degF] Dr. Harjeet Gutiérrez DO Work Phone: [facility] 03-21-2024 12:34-0500 Diastolic blood pressure 114 mm[Hg] Dr. Harjeet Gutiérrez DO Work Phone: [facility] 03-21-2024 12:34-0500 Heart rate 87 /min Dr. Harjeet Gutiérrez DO Work Phone: [facility] 03-21-2024 12:34-0500 Respiratory rate 16 /min Dr. Harjeet Gutiérrez DO Work Phone: [facility] 03-21-2024 12:34-0500 SaO2% (BldA) [Mass fraction] 100 % Dr. Harjeet Gutiérrez DO Work Phone: [facility] 03-21-2024 12:34-0500 Systolic blood pressure 167 mm[Hg] Dr. Harjeet Gutiérrez DO Work Phone: [facility] 03-21-2024 11:01-0500 Body mass index (BMI) [Ratio] 29.2 kg/m2 Dr. Harjeet Gutiérrez DO Work Phone: [facility] 03-21-2024 11:01-0500 Body weight 100.[address] Harjeet Gutiérrez DO Work Phone: [facility] 12-23-2022 09:36-0500 Body height 185.4 cm Rajan Wolfe MD Work Phone: [facility] 12-23-2022 09:36-0500 Body mass index (BMI) [Ratio] 29.69 kg/m2 Rajan Wolfe MD Work Phone: [facility] 12-23-2022 09:36-0500 Body temperature 97.59 [degF] Rajan Wolfe MD Work Phone: [facility] 12-23-2022 09:36-0500 Body weight 102.06 kg Rajan Wolfe MD Work Phone: [facility] Encounters Encounter Date Encounter Type Care Provider Facility Start: 07-13-2024 End: 07-17-2024 ambulatory CORI LUO PROCESS 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 ENGINEER-KAMRON Facility:[facility] Start: 07-13-2024 End: 07-17-2024 Outreach Lab CORI LUO 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 [facility] Start: 07-13-2024 End: 07-17-2024 ambulatory CORI LUO PROCESS 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 ENGINEER-KAMRON Facility:[facility] Start: 07-13-2024 End: 07-17-2024 Encounter for general adult medical examination without abnormal findings CORI LUO APRN-KAMRON Facility:[facility] Start: 07-13-2024 End: 07-17-2024 Outreach Lab CORI LUO APRN-SOCIAL WORK NURSE [facility] Start: 06-28-2024 End: 06-28-2024 Emergency department patient visit Dr. Harjeet Gutiérrez DO Work Phone: -Emergency Department Work Phone: Start: 05-02-2024 End: 05-02-2024 ambulatory CORI LUO 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 Facility:[facility] Start: 03-28-2024 End: 03-28-2024 ambulatory CORI VALERIO 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 Facility:[facility] Start: 03-28-2024 End: 03-28-2024 Patient encounter procedure CORI VALERIO 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 [facility] Start: 03-24-2024 End: 03-24-2024 Emergency department patient visit MAGI HOUSTON DO [facility] Start: 03-21-2024 End: 03-21-2024 Emergency department patient visit Dr. Alcides Goodrich MD -Emergency Department Work Phone: Start: 12-23-2022 End: 12-23-2022 ambulatory RAJAN WOLFE [facility] Start: 12-23-2022 End: 12-23-2022 Office outpatient new 30 minutes Rajan Wolfe MD Work Phone: [facility] Comment on above: Rotator cuff tendini tis, left (Primary Dx); Acute pain of left shoulder Start: 11-13-2022 End: 11-14-2022 ambulatory HARJEET GUTIÉRREZ DO Facility:B Start: 11-13-2022 End: 11-13-2022 Patient encounter procedure HARJEET GUTIÉRREZ DO [facility] Start: 03-31-2017 [facility] Start: 04-21-2014 End: 04-21-2014 Telephone encounter Rafael [...] 2) Zoste r Vaccines (1 of 2) [facility] Start: 12-25-2027 DTaP/Tdap/Td Vaccine s (3 - Td or Tdap) DTaP/Tdap/Td Vaccines (3 - Td or Tdap) [facility] Start: 06-28-2024 [facility] Start: 03-21-2024 [facility] Start: 10-17-2022 Influenza vaccination Influenza Vacc ine (#1) [facility] Start: 04-05-2021 COVID-19 Vaccine (3 - Mixed Product series) COVID-19 Vaccine (3 - Mixed Product series) [facility] Start: 10-17-2020 Influenza vaccination INFLUENZ A (Season Ended) [facility] Start: 11-09-2017 LIPID SCREEN LIPID SCREEN [facility] Start: 2000 Urine microalbumin profile DTAP,TDAP,TD (1 - Tdap) [facility] Start: 10-11-1999 Diabetes mellitus screening Diabetes Screening [facility] Start: 10-11-1999 HEPATITIS C SCRE[facility] Start: 10-11-1999 Hepatitis [facility] Start: 10-11-1999 HIV SCREENING HIV SCREENING [facility] Start: 1993 Adult depression screening assessment DEPRESSION SCREENING [facility] Start: 1982 MMR Vaccines (1 of 1 - Standard series) MMR Vaccines (1 of 1 - Standard series) [facility] Start: 1982 Varicella vaccination Varicell a Vaccines (1 of 2 - 2-dose childhood series) [facility] Start: 1981 Hepatitis B Vaccines (1 of 3 - 3-dose series) Hepatitis B Vaccines (1 of 3 - 3-dose series) [facility] Start: 1981 HIV screening HIV Screening [facility] Start: 1981 Lipid panel Lipid Panel [facility] Patient Education [facility] Work Phone: Patient referral [facility] Work Phone: Immunizations Immunization Date Immunization Notes Care Provider Fa [facility] 02-08-2021 SARS-CoV-2 mRNA (tozinameran) vaccine 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 [facility] 05-10-2020 SARS-CoV-2 (COVID-19 ) mRNA-1273 vaccine CORI LUO 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 [facility] Comment on above: Result Comment: 2024: TPVAL 12-24-2017 tetanus toxoid, redu mesha diphtheria toxoid, and acellular pertussis vaccine, adsorbed CORI LUO 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 2012 Unknown MMO MMO SUPERMED PLUS [id number] 2012-Present PPO [id number] 2011 Private Health Insurance [employer] [id number] 1981 Unknown [id number] 1981 Unknown [id number] 27 1981 Unknown [id number] 27 1981 Unknown [id number] 27 1981 Unknown [id number] 27 1981 Unknown [id number] 27 Unknown [id number] 62 Unknown [id number] 62 Social History Date Type Detail Facility Start: 04-19-2014 End: 07-13-2024 Tobacco smoking status KSIS Never smoker [facility] Start: 04-19-2014 Tobacco use and exposure Never used [facility] Work Phone: Start: 04-19-2014 Alcohol intake 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 Start: 08-11-2018 Sex Male (finding) [facility] Start: 01-25-2020 Lives Lives [facility] Start: 02-20-2019 Tobacco Use Tobacco Use [facility] Medical Equipment Procedure Code Equipment Code [...] Assessment Result Facility 03-24-2024 Functional Status Independent [facility] 03-24-2024 Functional Status Independent [facility] Mental Status Date Assessment Result Facility 03-24-2024 Mental Status Orientation Oriented x 4 [facility] 03-24-2024 Mental Status [facility] Clinical Notes 04-21-2014 to 06-28-2024 Note Date & Type Note Facility 06-28-2024 Discharge summary [facility] 06-28-2024 Radiology Diagnostic study note [facility] Imaging Services [address] [place], [place] [address] Shoulder min 2 Views MR#: [id number] Acct: [id number] Name: JEYSON DAN Rep #: [id number] : 1980 M 43 From: Tayo Tracy MD PCP: Dr. Harjeet Gutiérrez, DO Status: REG ER Study:Shoulder min 2 Views Date of Exam: 06/28/24 Exam# [id number] Ordering Dr: Ivan Lr MD PROCEDURE: SHOULDER [...] dislocation is evident. If clinical concern persists, cnrvn-jheyzjtzge-oq imaging may be obtained to rule out a currently occult fracture. Reading Location: [place] [address] CC: Dr. Ivan Lr MD; Dr. Harjeet Gutiérrez DO ~ Machine Compositor: Signed [facility] 03-29-2024 Note . MICRO - Microbiology PROCEDURE: [...] Locations *1: This test was performed at: [facility], [address] [place] [address], [facility] , [facility] 03-29-2024 Note . MICRO - Microbiology PROCEDURE: [...] Locations *1: This test was performed at: [facility], [address] [place] [address], [facility] , [facility] 03-28-2024 Note Exam Date Time Procedure Performing Provider Status 03/28/24 9:47 AM XR Ribs 2 Views Righ t/PA Chest (AO) ODALIS NAIR DO; Auth (Verified) [id number] ORIGINAL EXAMINATION: 4 XRAY VIEWS OF RIGHT [...] 03/28/2024 3:12:35 PM Ordering Provider: CORI LUO [facility]02-06-2025 Hospital Discharge instructions Patient Education [...] foods again, start with small amounts of myip-ke-dcntew, low- fat foods. These include apple sauce, [...] increase stomach acid. Don't use aspirin or fmah-qso-jvlipkp pain and fever medicines, if possible. This includes nonsteroidal anti-inflammatory drugs (NSAIDs). Lose excess weight. Finish eating at least 2 hours before you go to bed or lie down. Raise the head of your bed. 2511-6596 The [employer]. [address] [place] [address]. All rights reserved. This information is not intended as a substitute for professional medical care. Always follow yourhealthcare professional's instructions. Follow Up Care 03/24/2024 12:12:19 With:HARJEET GUTIÉRREZ DO Address: [address] [place] [phone] When:2-4 days [facility] 02-06-2025 Note Discharge Instructions Thank you for allowing [place] to assist you with your healthcare needs. [...] with HARJEET GUTIÉRREZ DO When:Within 2-4 days Where:[address] [place] [phone] Allergies NKA Medications Please ask your primary [...] foods again, start with small amounts of owxi-kp-jdgbzr, low- fat foods. These include apple sauce, [...] increase stomach acid. Don't use aspirin or rrzk-yey-hoiodmn pain and fever medicines, if possible. This includes nonsteroidal anti-inflammatory drugs (NSAIDs). Lose excess weight. Finish eating at least 2 hours before you go to bed or lie down. Raise the head of your bed. 4380-2417 [employer]. [address] [place] [address], [place] [address]. All rights reserved. This information is not intended as a substitute for professional medical care. Always follow yourhealthcare professional's instructions. Additional Information VACCINATE! IT SAVES LIVES! Members of the community who have not yet received the COVID-19 vaccine and would like to receive it can visit one of [facility] vaccine clinics. There are many vaccine clinic locations within the [facility]. For locations and available times, please visit www.gettheshot.coronavirus.[place].gov/. It is important to note that some COVID mobile vaccine clinics are held outdoors and may be canceled in rainy or stormy conditions. To learn more about pediatric vaccinations (ages 5-11), we invite you to visit the [facility] webpage. https://www.Piggybackrs.org/pages/8142-Porgn-Tosleqgozio-Fymmnwplpx-Jdldq-Ria stions.htmlTo learn more about the COVID-19 vaccine, we invite you to visit the CDC website for a list of frequently asked questions. https://www.cdc.gov/coronavirus/2019-ncov/vaccines/faq.html [facility] Patient Portal Access Instructions: Stay connected with your healthcare team and access your personal medical information anytime with the [facility] Patient Portal. If you would like a full copy of your medical records please contact the [facility] Medical Records Department Thursday through Thursday between 8a.m. and 4:30p.m. Please follow the directions below to access the portal: 1.Access the email account you provided upon registration to the hospital.2.Look for an invitation email from [facility].3.Open the email and access the invitation link: Accept Invitation to [facility]4.Fill in the required corrigan to create your account. Sign into [email or web address] with your username and password that you [...] you will allow to register on the [facility] Patient Portal for access to your information. You can also access the [facility] Patient Portal on the [facility]. Simply click on Health Records under HealthData and then click on the Techcafe.io logo. HOW TO SAFELY DISPOSE OF PRESCRIPTION [...] Call your local pharmacy or go to http://T-Networks.LTG Exam Prep Platform/8Y1Wt8x to find one close to you.3.Make use of household items: Use cat litter or old coffee grounds to dispose medications if other options arenot available. Mix your drugs with these household products, seal them in an airtight container andthrow it into the garbage. Call [facility]: [phone] to be sure your drugs can be [...] am aware that I should contactmy doctor. Patient/Mash Grinder Signature: Date/Time: Relationship to Patient: Witness Name/Signature: Date/Time: [facility]02-06-2025 Note* Exam Date Time Procedure Performing Provider Status 03/24/24 2:[address] Abd/Pelvis w/ IV Contrast Only TACHO HUDSON MD; Auth (Verified) [id number] ORIGINAL EXAMINATION: CT OF THE ABDOMEN AND [...] Sign Date: 03/24/2024 2:30:40 PM Ordering Provider: [facility]11-07-2023 History of Present illness Narrative * Rajan Wolfe MD - 12/23/2022 10:15 AM EST Images from the original note were not included. 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 Follow up if symptoms worsen or fail to improve. Rajan Wolfe MD 12/23/2022 9:36 AM Please note that portions of this note may have been completed with voice recognition software. Documentation reviewed prior to signing but minor errors in centrifugal chiller technician may have occurred. documented in this [facility]11-07-2023 Instructions* Patient Instructions* Rajan Wolfe MD - 12/23/2022 10:15 AM EST ADDITIONAL INFORMATION (AAOS.org) SHOULDER: https://orthoinfo.aaos.org/globalassets/pdfs/8406-phsdwpv-rkdu-ore-lbymyquf-ctdp itioning-program.pdf documented in this [facility]03-06-2015 Miscellaneous Notes* Telephone Encounter - Kathleen Rain Ma - 04/21/2014 9:10 AM EST Pt has already been PAT'd as he recently had procedure with Dr. Chaves. Kathleen Rain Ma documented in this encounterWebster ClinicDischar summary Author Ivan Lr [facility] Note Date/Time June 28, 2024 9:59a m [facility] Medical Records Department [address] [place] [address] Emergency Department Summary 06/28/24 MR#: [id number] Acct: [id number] Name: JEYSON DAN Rep #:[id number] : 1980 43 From: Ivan Lr MD PCP: Dr. Harjeet Gutiérrez, DO Status:REG ER Location: ED HPI History of Present Illness Chief Complaint: Upper Extremity Injury Narrative Narrative: 43-year-old male, ycogi-tcuy-dsnshayo, presents with left shoulder pain worse with movement. 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 [facility] Medical History Wears glasses Wears dentures Anxiety [...] immediately with the now clinic for further [facility] testing. He was placed in a sling for comfort but told to exercise his shoulder a few times a day to prevent adhesive capsulitis. He can take ypke-odb-qbnelxv medication such as ibuprofen or Tylenol as there is no evidence of fracture on his x-ray. He was given a note for limited use of his left upper extremity at work, and not to drive the company vehicle until cleared by [facility] provider. Disposition is discharged home in stable [...] for drug testing as this is a [facility] claim. Lpmh-rrl-tduedct medications like acetaminophen and/or ibuprofen as needed for pain. Continue your gabapentin. Follow-up with occupational medicine/[facility] provider/in our clinic. Exercise your left shoulder a few times a day when possible and do not leave in sling. Print Language: Urdu Disposition Disposition: Home, Self Care What to do if you have Problems For any increased pain, shortness of breath, bleeding, nausea or vomiting, chestpain, or any unexpected problems, contact your Primary Care Provider. Call [facility] [facility] ([phone]) or report to the closest Emergency Room. Call 911 if necessary. 06/28/24 1497 <Electronically signed by Ivan Lr MD> Cosigner Signature (if applicable): CC: Dr. Harjeet Gutiérrez, DO ~ Signed [facility] Work Phone: Evaluation + Plan note Future Appointments Appointment Date:02/02/2023 10:30:00 AM Scheduled Provider:HARJEET GUTIÉRREZ DO Location:[facility] Appointment Type:PC OV [facility] Up [facility] [facility] Evaluation + Plan note Future Appointments Appointment Date:03/25/2024 01:00:00 PM Scheduled Provider:CORI LUO Location:[facility] Appointment Type:PC OV ED Follow Up Appointment Date:05/17/2024 09:00:00 AM Scheduled Provider:HARJEET GUTIÉRREZ DO Location:[facility] Appointment Type:PC OV [facility] Evaluation + Plan note Future Appointments Appointment Date:05/17/2024 09:00:00 AM Scheduled Provider:HARJEET GUTIÉRREZ DO Location:[facility] Appointment Type:PC OV Future Scheduled Tests Radiology* US Soft Tissue Mass 03/25/24 [facility] Evaluation + Plan note Future Appointments Appointment Date:10/04/2024 09:00:00 AM Scheduled Provider:CORI LUO Location:[facility] Appointment Type:PC OV Controlled Medication [facility] Evaluation note* Diagnosis Rotator cuff tendinitis, left- Primary Acute pain of left shoulder [facility] noteNo assessment information availableWSt. John of God Hospital Work Phone: Hospital course Narrative No data available for this section [facility] Hospital Discharge instructions No data available for this section [facility] Hospital Discharge instructions Additional Instructions Report to the NOW clinic immediately for drug testing as this is a [facility] claim. [id number] medications like acetaminophen and/or ibuprofen as needed for pain. Continue your gabapentin. Follow-up with occupational medicine/[facility] provider/in our clinic. Exercise your left shoulder a few times a day when possible and do not leave in sling.[facility] Work Phone: Progress note No data available for this section [facility] Reason for referral (narrative)No reason for referral information availableWSt. John of God Hospital Work Phone: Summary Purpose Family History [...] Do you have a Healthcare Power of Manager Supply Chain? No March 21, 2024 1:33pm Do you have a Healthcare Power of Manager Supply Chain? No June 28, 2024 8:17am Chief Complaint [...] section and content) DATE CREATED AUTHOR 08/07/2017 [employer] DATE CREATED AUTHOR AUTHOR'S ORGANIZ ATION 11/21/2022 [facility] ([place]) DATE CREATED AUTHOR AUTHOR'S ORGANIZ ATION 12/24/2022 [facility] [employer] [facility] DATE CREATED AUTHOR AUTHOR'S ORGANIZ ATION 07/16/2024 [facility] DATE CREATED AUTHOR AUTHOR'S ORGANIZ ATION 07/18/2024 [facility] Source Comments (unrecognize d section and content) In the event this informatio n is protected by the Federal Confidentiality of Alcohol and Drug Abuse Patient Records regulations: The Federal rules restrict any use of the information to criminally investigate or prosecute any alcohol or drug abuse patient.[facility] Reason for Visit (unrecogniz ed section and content) Reason Onset Date Comments Schedule Surgery 04/21/2014 04-25-2014 diag nostic laparoscopy, laparoscopic appendectomy Reason Comments New Patient Left Shoulder Patient Care team informatio n (unrecognized section and content) [employer] Employee Relationship Specialty Start Date End Date Jean-Pierre Reyes DO [address] [place] [address] PCP - General 03/30/17 Team Status: Active [...] BE BASED ON THE PRIMARY CLINICAL RECORDS. [facility]. provides no warranty or guarantee of the accuracy or completeness of information in this document.
--- NOTE | 2024-09-01 01:40 | RAD_ITS ---
PROCEDURE: HIP, UNI W/ PELVIS 2-3 VIEWS 09/01/2024 REASON FOR EXAM: PAIN TECHNIQUE: HIP, UNI W/ PELVIS 2-3 VIEWS COMPARISON: 07/26/2020 FINDINGS: Intact pelvic ring. Mild left hip osteoarthritis. Status post right THR. Intact hardware. Anatomic alignment. No acute bone or soft tissue pathology. RAD/HIP, UNI W/ Pelvis 2-3 Views IMPRESSION: Unremarkable right hip appearance status post THR. Reading [facility]
--- NOTE | 2024-09-01 01:40 | RAD_ITS ---
PROCEDURE: HIP, UNI W/ PELVIS 2-3 VIEWS 09/01/2024 REASON FOR EXAM: PAIN TECHNIQUE: HIP, UNI W/ PELVIS 2-3 VIEWS COMPARISON: 07/26/2020 FINDINGS: Intact pelvic ring. Mild left hip osteoarthritis. Status post right THR. Intact hardware. Anatomic alignment. No acute bone or soft tissue pathology. RAD/HIP, UNI W/ Pelvis 2-3 Views IMPRESSION: Unremarkable right hip appearance status post THR. Reading [facility]
--- NOTE | 2024-09-01 02:18 | EX.ED.DYSGE1 ---
HPI History of Present Illness Chief Complaint: Lower Extremity Injury Informant: patient and EMS Narrative Narrative: Patient is a 43-year-old male with past medical history of right hip replacement as well as insomnia on Ambien. Patient states he took his Ambien this evening and then was walking out into the kitchen to get a glass of water when he slipped on the linoleum floor and landed directly on his right hip. He denies striking his head or any loss of consciousness. He denies any history of bleeding disorder or blood thinner use. He states that after the fall he had severe pain in the right hip and could not get up. Secondary to this EMS was called. Patient states he was only on the ground for 10 to 15 minutes prior to receiving. However because of the severe pain and injury there is concern he may have damaged the previous replacement and he was brought in for evaluation. [facility] Medical History Wears glasses Wears dentures Anxiety History of steroid therapy Arthritis Migraine headache Non-smoker Chronic pain Home Medications ?Medication ?Instructions ?Recorded ?Last Taken ?Type gabapentin 600 mg tablet 600 mg PO 4X/DAY 09/01/24 Unknown History meloxicam 7.5 mg tablet 7.5 mg PO BID PRN PRN pain 09/01/24 Unknown History oxycodone 5 mg tablet 5 mg PO Q6H PRN pain 5 days #20 09/01/24 Unknown Rx tabs zolpidem 10 mg tablet 10 mg PO QHS 09/01/24 Unknown History Allergy/AdvReac Type Severity Reaction Status Date / Time No Known Allergies Allergy Verified 09/01/24 00:49 Surgical History Hx laparoscopic cholecystectomy Hx of tonsillectomy S/P hip arthroscopy Social History Smoking Status: Never smoker ROS ROS ED Constitutional Constitutional ED: Denies chills or fever(s) Eyes Eyes: Denies blurry vision or change in vision ENT ENT ED: Denies sore throat Cardiovascular Cardiovascular: Reports other Details: Negative syncope ; Denies chest pain Respiratory/Chest Respiratory/Chest: Denies cough or dyspnea Gastrointestinal Gastrointestinal: Denies abdominal pain, diarrhea, nausea or vomiting Musculoskeletal Musculoskeletal: Reports other Details: Positive right hip pain ; Denies back pain or neck pain Integumentary Denies Abrasions or rash Neurologic Neurologic: Denies headache(s) Hematologic/Lymphatic Hematologic/Lymphatic: Denies easy bleeding or easy bruising EXAM Physical Exam Const Vital Signs: 09/01/24 00:48 09/01/24 02:32 Temperature 987.2 F H 97.2 F L Temperature Source Oral Pulse Rate 94 94 Respiratory Rate 16 16 Blood Pressure 150/86 H Blood Pressure Mean 107 Pulse Ox 96 96 Positive well nourished and well developed General Appearance ED: well developed; Negative for pallor HEENT HEENT Narrative: Normocephalic atraumatic Eyes PERRL and EOMs intact bilaterally Neck supple Neck Narrative: No bony deformity or step-off of the cervical spine no midline tenderness to palpation Resp normal respiratory effort and clear to auscultation bilaterally Cardio regular rate and regular rhythm GI normal to inspection, nondistended, normoactive bowel sounds, non-tender, non-distended and no masses Auscultation: normoactive bowel sounds Palpation: soft Back/Spine Back/Spine Narrative: No bony deformity or step-off of the thoracic or lumbar spine no midline tenderness to palpation Extremity Extremity Narrative: Pelvis is stable there is no shortening or external rotation of either lower extremity There is no obvious bony deformity or joint effusion All compartments are soft and compressible going against compartment syndrome Right lower extremity is neurovascularly intact. Patient has increased pain with external rotation and hip flexion. Remainder of the exam is normal Neuro oriented x3 and CN's II-XII intact bilaterally Sensorium / Orientation: alert Psych mental status grossly normal Skin no rashes or lesions noted and no wounds General Skin Exam: Negative for jaundice or pallor MDM MDM MDM Narrative Medical decision making narrative: Patient arrived to the ER after a mechanical fall and therefore there is no need for cardiac or syncope workup. He did not strike his head nor is he on blood thinners so I have low concern for a traumatic subarachnoid or subdural hemorrhage and there is no need for head CT. By physical exam he does not have compartment syndrome nor other any signs of secondary infection such as cellulitis and as he was on the ground for just a few minutes low concern for rhabdomyolysis. An x-ray was obtained to rule out acute pelvic fracture or hardware derangement/periprosthetic fracture. X-ray revealed no acute finding. After receiving treatment in the ER he did have improvement of his pain and he was able to now rotate and bend the hip with minimal symptoms and this correlates with the fact that there is no obvious fracture or dislocation noted on the x-ray. Therefore at this time I do not feel there is need for further workup and he can be discharged home with symptomatic care. History & Record Review Discussion w/independent historian: EMS personnel, Patient and Family Radiography Diagnostic Testing: Clinical Impression(s) from Imaging Studies Hip/Pelvis X-Ray 09/01/24 01:40 IMPRESSION: Unremarkable right hip appearance status post THR. Reading Location: [facility] X-ray of the right hip with 1 view pelvis as interpreted by emergency medicine physician reveals no acute pelvic ring fracture and no acute periprosthetic fracture with hardware that is intact and in place. Discharge Plan Triage Chief Complaint: Lower Extremity Injury ED Provider: Lior Calvert Dx/Rx/DC Orders Clinical Impression: Contusion of right hip and thigh, Accidental fall, Insomnia Instructions: ED Hip Contusion Prescriptions: New oxycodone 5 mg tablet 5 mg PO Q6H PRN (Reason: pain) 5 Days Qty: 20 0RF No Action gabapentin 600 mg tablet 600 mg PO 4X/DAY meloxicam 7.5 mg tablet 7.5 mg PO BID PRN PRN (Reason: pain) zolpidem 10 mg tablet 10 mg PO QHS Primary Care Provider: Geo Gutiérrez Referrals: Geo Gutiérrez DO [Primary Care Provider] - Activity Restrictions/Additional Instructions: Your x-ray did not show any sign of periprosthetic fracture or derangement to your hardware indicating you have a deep bone bruise/hip contusion. Continue to ice the area and use topical medication such as lidocaine and IcyHot to help reduce pain and speed healing. Make sure you are moving the hip to prevent frozen joint. Continue your home medications as directed but add the oxycodone for improved pain control. Return to the ER should you have any further concerns Print Language: Mohawk Disposition Disposition: Home, Self Care Discharge Date/Time: 09/01/24 02:35
[2024-09-01 02:32] VITALS: BP 150/86; PULSE 94; RESP 16; TEMP 36.2; O2SAT 96
== END 2024-09-01 02:35 | disposition home or self-care (01) ==
PROVIDERS: Emergency Provider Emergency Medicine; PCP Preventive Medicine Occupational Medicine; Visit Provider Emergency Medicine
DX: S70.01XA Contusion of right hip, initial encounter (principal); S70.11XA Contusion of right thigh, initial encounter; W01.0XXA Fall on same level from slipping, tripping and stumbling without subsequent striking against object, initial encounter; G47.00 Insomnia, unspecified; Z96.641 Presence of right artificial hip joint; Z79.899 Other long term (current) drug therapy
CPT/HCPCS: 73502; 96374; 96375; 99285; A4216; J2405